=== PATIENT | male | born 1935 | race Caucasian/White ===

== ENCOUNTER 2024-08-22 13:52 | Inpatient (IN) | payer OTHER, SELFPAY ==
[2024-08-22] VITALS (16 sets, daily range): BP systolic 85–139; BP diastolic 47–92; PULSE 2–132; BMI 26.8
--- NOTE | 2024-08-22 10:32 | ED.GENMED ---
History of Present Illness
General
Chief Complaint: Breathing Problem
Source: patient and ambulance crew
Exam Limitations: none
Time Seen by Provider: 08/22/24 10:30
Nursing documentation reviewed up to this point in time: agreed with
History of Present Illness
History of Present Illness:
88 yo male presents emergency room complaining of shortness of breath. He began having trouble breathing on Thursday. He has a history of COPD, and did a home test positive for COVID on Thursday.
Past History
Past History
ED Past Medical History: COPD and NIDDM
ED Past Surgical History: None
Social History
Tobacco: Former smoker
Alcohol: None
Drug: None
Living: with family
Review of Systems
Review of Systems
Allergies reviewed?: Yes
All Other Systems: Not applicable
Constitutional: Reports fever
EENT: Reports no symptoms
Respiratory: Reports cough and trouble breathing
Cardiac: Reports no symptoms
ABD/GI: Reports no symptoms
: Reports no symptoms
Musculoskeletal: Reports no symptoms
Skin: Reports no symptoms
Neurological: Reports no symptoms
Endocrine: Reports no symptoms
Hematologic/Lymphatic: Reports no symptoms
Psychiatric: Reports no symptoms
Phy Exam
Physical Exam
Physical Exam:
Physical Exam
General: Afebrile, moderate respiratory distress, BiPAP in place
Neck: supple. no meningeal signs. normal posterior pharynx
Heart: s1/s2 tachycardia, no murmur. equal radial
pulses.
HEENT: Pupils equal round reactive to light, EOMI
Lungs: Moderate respiratory distress. Wheezing bilaterally
Abdomen: normal bowel sounds. not tender. no CVAT
Neuro: alert and oriented. no focal neurological deficits cranial nerves II through XII intact
Skin: no rash
Psychiatric: well kept. interactive and cooperative
Extremities: no edema. no calf tenderness. negative homans. good distal pulses
Scores
Heart Failure Risk
Heart Failure Risk Score: Not Applicable
Sepsis
Sepsis Screening
Sepsis Assessment: Sepsis
Sepsis Screen
Sepsis Screen: Sepsis
Date: 08/22/24
Time: 12:47
Course
Orders/Labs/Results
Orders:
Orders
08/22/24 10:26
Electrocardiogram (*1) Urgent
Reason for Study: Other
Other Reason for Exam: Respiratory Distress
Cardiac Monitoring- Treatment ONCE
EKG- Treatment ONCE
IV Insert/Care/Rem.- Treatment PRN
CR Chest Portable - 1 View Urgent
Comment:
Reason For Exam: respiratory distress
Reason Study Needs to be Portable: Patient Unstable
O2 Therapy [RESP] Urgent
Titrate/Wean O2 to maintain O2 sat greater than (%): 93
Special Instructions: TO MAINTAIN CONTINUOUS O2 SATS >/= 93%
Pulse Ox/cont/shift [RESP] Urgent
Quantity: 1
Special Instructions: continuous pulse ox
08/22/24 10:31
Complete Blood Count/With Diff Urgent
Ipratropium/Albuterol Sulfate [Duoneb] 3 ml INH R NOW STA
Bipap [RESP] Urgent
Patient to use own unit?: No
Inspiratory Pressure (cm H2O): 16
Expiratory Pressure (cm H2O): 8
08/22/24 10:36
Acetaminophen [Tylenol/Feverall] 650 mg .ROUTE .[facility]-MED ONE
Acetaminophen [Tylenol/Feverall] 650 mg RECTAL NOW STA
08/22/24 10:37
Acetaminophen [Tylenol/Feverall] 650 mg RECTAL NOW STA
08/22/24 11:28
Dexamethasone Sod Phosphate [Decadron] 10 mg IV NOW STA
Ipratropium/Albuterol Sulfate [Duoneb] 3 ml INH R NOW STA
08/22/24 11:37
Comprehensive Metabolic Panel Urgent
Lactic Acid Q4H
Comment: CANCEL 2nd LACTIC ACID IF 1st LACTIC ACID IS LESS THAN 2
Troponin I Urgent
Blood Culture Q30M
MONY Source: Blood/Venous
Specimen Description:
08/22/24 11:40
Blood Culture Q30M
MONY Source: Blood/Venous
Specimen Description:
Cefepime HCl [Maxipime] 2,000 mg IV NOW STA
08/22/24 11:45
Vancomycin [Vancocin] 2,000 mg 0.9% Sodium Chloride 500 ml [Nss] 500 ml IV NOW
08/22/24 11:55
Sterile Water [Sterile Water For Injection] [facility]
08/22/24 12:04
COVID-19 Antigen Urgent
Source: Nasal Swab
INF RAPID [Influenza A+B Rapid Molecular] Urgent
MONY Source: Nasal Swab
Specimen Description:
Abnormal Lab Results
08/22/24 08/22/24 08/22/24
10:31 11:37 12:04
WBC 21.0 H 10^3/uL
(4.8-10.8)
MCHC 30.0 L g/dL
(33.0-37.0)
Abs Immat Gran (auto) 0.1 H 10^3/uL
(0-0.05)
Absolute Neuts (auto) 18.7 H 10^3/uL
(1.4-6.5)
Absolute Lymphs (auto) 0.6 L 10^3/uL
(1.2-3.4)
Absolute Monos (auto) 1.5 H 10^3/uL
(0.1-0.6)
Immature Gran % 0.7 H %
(0-0.5)
Neutrophils % 89.0 H %
(42.2-75.2)
Lymphocytes % 2.9 L %
(20.5-51.1)
Chloride 91 L mmol/L
(98-107)
Carbon Dioxide 39 H mmol/L
(22-30)
BUN 28 H mg/dl
(9-20)
Glucose 162 H mg/dl
(70-99)
AST 15 L U/L
(17-59)
Troponin I 0.143 H* ng/ml
SARS-CoV-2 Antigen Positive A
(Negative)
08/22/24 10:31
08/22/24 11:37
Vital Signs
Initial and Last Documented VS:
Initial Vital Signs
Pulse Resp Pulse Ox
135 42 88
08/22/24 10:26 08/22/24 10:26 08/22/24 10:26
Last Documented Vital Signs
Temp Pulse Resp BP Pulse Ox
102.1 F H 122 37 102/67 88
08/22/24 10:36 08/22/24 12:15 08/22/24 12:15 08/22/24 12:00 08/22/24 12:15
MDM/Problems Addressed
Differential Diagnosis Includes:
CHF, pneumonia, COVID
MDM/Problems Addressed:
88-year-old male with pneumonia, COVID mild elevation, COPD. Mild improvement with BiPAP. IV cefepime and vancomycin given. Admit to hospitalist.
Chronic conditions affecting care: COPD
Acute Exacerbation and/or Progression of Chronic Illness: COPD
*Radiology
Radiology exam reviewed: radiology read reviewed (Chest x-ray shows right upper lobe pneumonia)
*Pulse Oximetry
Patient hypoxic: yes
*EKG
Interpreted by ED Provider?: Yes
EKG Intrepretation Date: 08/22/24
EKG Intrepretation Time: 10:45
Interpretation: abnormal
Comparison EKG: changes noted
Heart Rate: 134
Rate: tachycardiac
Rhythm: sinus tachycardia
[place]: normal axis
Interval: normal interval
QRS Pattern: right bundle branch block
Ischemia: no ischemia
*Wire Weaver Helper Interpretation
Rate: tachycardiac
Interpretation: abnormal
Heart Rate: 125
Rhythm: sinus tachycardia
*Critical Care Note
Total Time (30-74mins, 75-104mins- exclusive of procedures): 30
comment:
Critical care statement: A total of 30 minutes of critical care time was provided for this patient. This includes management of unstable vital signs, evaluation of the patient at bedside, reviewing the patient's pertinent medical records, discussion
with consultants, review of old EKGs and review of pertinent medical records. This time with separate from time utilized to perform the aforementioned documented procedures
Data Reviewed
Review of Other/Old Records Reveals: Labs
Source: records (BUN 42 on 11/29/2016)
Further Testing Considered But Not Given:
CT chest not indicated
Patient Management
Social determinants of health affecting care: Living situation and Strong social support
Discussion with other providers: Hospitalist
Escalation/DeEscalation of care consider admission/obs:
Admit indicated
ED Attending Note
-
Portions of this chart may have been created with voice recognition software.� Occasional wrong word or��sound alike� substitutions may have occurred due to the inherent limitations of voice recognition software.
Discharge Plan
Departure
Patient Disposition: Admit
Date of Disposition: 08/22/24
Time of Disposition: 12:41
Admit to: IMU
Presentation/result/management discussed w/ accepting MD/DO: Hospitalist
Patient with high blood pressure during this ER visit?: No
Condition: Fair
Covid-19: Confirmed COVID-19
Discharge Problem:
Acute respiratory failure with hypoxia and hypercarbia, COVID-19, Pneumonia, Elevated troponin
Prescriptions:
No Action
metformin 500 mg Tablet
500 mg PO BID
aspirin 81 mg Tablet,Delayed Release (Dr/Ec)
81 mg PO DAILY
albuterol sulfate [ProAir HFA] 90 mcg/actuation Hfa Aerosol Inhaler
2 puff INHALATION R Q6HPRN PRN (Reason: sob)
Asmanex HFA 200 mcg/actuation Hfa Aerosol Inhaler
1 puff INHALATION R BID
Stiolto Respimat 2.5-2.5 mcg/actuation Mist
2 puff INHALATION R DAILY
docusate sodium 100 MG capsule
100 mg PO DAILY
DayQuil Sinus Pressure/Pain 30-200 mg Tablet
1 tab PO BIDPRN PRN (Reason: cough/headache)
albuterol sulfate 2.5 mg /3 mL (0.083 %) Solution For Nebulization
2.5 mg INHALATION R Q4HPRN PRN (Reason: sob)
cholecalciferol (vitamin D3) [Vitamin D3] 25 mcg (1,000 unit) Tablet
25 mcg PO DAILY
Referrals:
NONE,* [Family Provider] -
Interventions
Interventions:
*Risk Screen - Suicide Last Done: 08/22/24 10:26
*General Assessment Last Done: 08/22/24 10:26
*Neglect/Abuse Screening Last Done: 08/22/24 10:26
ED- Fall Risk Assessment Last Done: 08/22/24 10:32
*ED COVID-19 Vaccine History Last Done: 08/22/24 10:32
ED- Cardiac Assessment Last Done: 08/22/24 10:32
ED- Pulmonary Assessment Last Done: 08/22/24 10:45
Discharge Date and Time
Print Language: BENGALI
[2024-08-22] MEDS: DUONEB 3 ML INH ×2 (10:37→12:02)
[2024-08-22] MEDS: TYLENOL/FEVERALL 650 MG RECTAL (10:37)
[2024-08-22 10:45] LABS: % Basophils 0.2 % (0-2); % Immature Granulocytes 0.7 % (0-0.5); % Lymphocytes 2.9 % (20.5-51.1); % Monocytes 7.2 % (1.7-9.3); Absolute Basophils 0.1 10^3/uL (0-0.2); Absolute Immature Granulocytes 0.1 10^3/uL (0-0.05); Absolute Lymphocytes 0.6 10^3/uL (1.2-3.4); Absolute Monocytes 1.5 10^3/uL (0.1-0.6); Absolute Neutrophils 18.7 10^3/uL (1.4-6.5); Hemoglobin 14.4 g/dL (13.0-18.0); Mean Corpuscular Hgb 28.1 pg (27.0-31.0); Mean Corpuscular Volume 93.6 fL (80.0-94.0); Nucleated Red Blood Cells % 0 % (-); Platelet Count 239 10^3/uL (130-400); Red Blood Cell Count 5.13 10^6/uL (4.70-6.10); Red Cell Dist. Width 13.5 % (11.5-14.5)
[2024-08-22] MEDS: DECADRON 10 MG IV (11:32)
[2024-08-22] MEDS: VANCOCIN 540 MG IV (12:02)
[2024-08-22] MEDS: MAXIPIME 2000 MG IV (12:02)
[2024-08-22 12:16] LABS: ALT (SGPT) 15 U/L (0-50); AST (SGOT) 15 U/L (17-59); Albumin 3.9 g/dl (3.5-5.0); Alkaline Phosphatase 69 U/L (38-126); Blood Urea Nitrogen 28 mg/dl (9-20); Calcium 8.9 mg/dl (8.4-10.2); Carbon Dioxide 39 mmol/L (22-30); Chloride 91 mmol/L (98-107); Estimated Creatinine Clearance 50 ml/min; Glucose 162 mg/dl (70-99); Lactic Acid 1.5 mmol/L (0.7-2.0); Potassium 4.6 mmol/L (3.5-5.1); Sodium 140 mmol/L (135-145); Total Bilirubin 0.9 mg/dl (0.2-1.3); Total Protein 6.7 g/dl (6.3-8.2); eGFR > 60.00
[2024-08-22 12:29] LABS: Troponin I 0.143 ng/ml
[2024-08-22 12:39] LABS: COVID-19 Antigen Positive (Negative)
--- NOTE | 2024-08-22 12:43 | HPS.HSE ---
Family Physician
-
Family Physician: * NONE
Chief Complaint
-
Shortness of Breath
History of Present Illness
Patient is an 88 y/o male past medical history of diabetes mellitus, and COPD/Emphysema who presents with cough and shortness of breath. Patient reports he started with symptoms on Thursday at which time he has a home COVID test that was positive.
Breathing worsened over the weekend. EMS was called today due to his shortness of breath, where they found him to be cyanotic with pulse ox 70% on RA. Upon arrival to the ED he as placed on BiPAP. He was also found to be febrile with temp 102F.
He reports cough is very productive. He denies chest pain.
Medical History
Past Medical History
Past Medical History: Reports Other
Additional Past Medical History:
Diabetes Mellitus, Type II
COPD/Emphysema
Past Surgical History: Reports None
Social History
Tobacco: Former Smoker
Family History
Family History: Not pertinent
Allergies / Home Medications
Allergies reflects when Allergies were last updated in [employer]
Home Medications with original date entered in [employer]
Allergy/Medication List:
Allergies
Allergy/AdvReac Type Severity Reaction Status Date / Time
No Known Allergies Allergy Verified 08/22/24 12:25
Home Medications
albuterol sulfate 2.5 mg/3 mL (0.083 %) solution for nebulization 2.5 mg inhalation R Q4HPRN PRN sob 08/22/24
albuterol sulfate 90 mcg/actuation aerosol inhaler 2 puff inhalation R Q6HPRN PRN sob 08/22/24
aspirin 81 mg tablet,delayed release 81 mg PO DAILY 08/22/24
cholecalciferol (vitamin D3) 25 mcg (1,000 unit) tablet (Vitamin D3) 25 mcg PO DAILY 08/22/24
docusate sodium 100 mg capsule 100 mg PO DAILY 08/22/24
metformin 500 mg tablet 500 mg PO BID 08/22/24
mometasone 200 mcg/actuation HFA aerosol inhaler (Asmanex HFA) 1 puff inhalation R BID 08/22/24
pseudoephedrine-ibuprofen 30 mg-200 mg tablet 1 tab PO BIDPRN PRN cough/headache 08/22/24
tiotropium 2.5 mcg-olodaterol 2.5 mcg/actuation mist for inhalation (Stiolto Respimat) 2 puff inhalation R DAILY 08/22/24
Review of Systems
-
Unable to obtain full review of systems at this time due to: Acuity
Physical Exam
Vital Signs
Vital Signs
Temp Pulse Resp BP Pulse Ox
102.1 F H 122 37 102/67 88
08/22/24 10:36 08/22/24 12:15 08/22/24 12:15 08/22/24 12:00 08/22/24 12:15
Physical Exam
General: Well Developed, Well Nourished and Conversant
HEENT: Anicteric, Moist mucous membranes and Oxygen (BiPAP)
Respiratory: Rhonchi (Diffuse); No Accessory Resp Muscle Use
Cardiac: S1/S2 and Regular Rhythm
GI: Soft and Non Tender
Rectal: Deferred by Provider
Musculoskeletal: No Clubbing, No Cyanosis and No Edema
Skin: Warm and Dry
Neuro: Awake, Alert, Oriented and Nonfocal/grossly intact
Psych: Calm
Laboratory Results
-
08/22/24 10:31
08/22/24 11:37
Laboratory Results
Lactic Acid Cancelled 08/22/24 14:45
Total Bilirubin 0.9 mg/dl (0.2-1.3) 08/22/24 11:37
AST 15 U/L (17-59) L 08/22/24 11:37
ALT 15 U/L (0-50) 08/22/24 11:37
Alkaline Phosphatase 69 U/L (38-126) 08/22/24 11:37
Troponin I 0.143 ng/ml H* 08/22/24 11:37
Data Reviewed
-
Diagnostic Radiology: Report Reviewed by me
Lab Data: Labs Reviewed by me
Impression/Plan
-
Sepsis and Acute Hypoxic Respiratory Failure secondary to Severe COVID Pneumonia
-Admit to IMU
-Consult Pulmonary
-Attempt to transition BiPAP to mid/high flow oxygen
-Start Decadron 6mg IV Daily
-Start Remdesivir
-Continue empiric antibiotics with ceftriaxone and doxycycline in setting of high fever, leukocytosis and significant sputum production
-Attempt to obtain sputum culture
-Await blood cultures
-Continue supportive care with Mucinex and Tylenol
-Encourage use of incentive spirometer and acapella device
Elevated Troponin, likely non-ischemic myocardial injury secondary to severe hypoxia
-Continue to trend troponin
COPD/Emphysema
-Continue albuterol HFA, Spiriva and Flovent in setting of COVID
Diabetes Mellitus, Type II
-Hold metformin
-Monitor sugars and continue coverage insulin
DVT proph: Lovenox
Code Status: DNR
--- NOTE | 2024-08-22 13:16 | W.PN.UPDATE ---
Addendum entered and electronically signed by Tye Robles MD 08/22/24 14:19:
Patent not on home oxygen.
Original Note:
Update Note
Progress Note Update
This is an addendum to the H&P written by Sarah Levin on 08/22/2024. Patient seen and examined independently with PA.
88-year-old male past medical history of COPD on 3 L baseline, diabetes, presenting with shortness of breath for the past 4 days. He tested positive for COVID 3 days ago.
Patient with temperature of 102, tachycardic with a heart rate of 122, respiratory rate of 37.
On examination with moderate respiratory distress, bilateral wheezing.
Patient placed on BiPAP.
Labs show leukocytosis. Troponin of 0.143.
Chest x-ray shows severe asymmetric opacity in the right upper lobe, moderate right lower lobe and mild left lower lobe opacities secondary to severe pneumonia.
Nonischemic myocardial injury secondary to hypoxemia.
Patient with clinically septic severe COVID-pneumonia. Start dexamethasone and remdesivir. Will try to switch BiPAP to mid flow oxygen. Blood cultures pending. IV fluids. Empiric antibiotics with ceftriaxone/doxycycline. Pulmonology consulted.
Trend troponins.
[2024-08-22] MEDS: NSS 1000 IV ×2 (14:23→18:20)
--- NOTE | 2024-08-22 14:40 | CON.PUL ---
Consultation
Consultation Request
Date/Time Consultation Requested: 08/22/2024 - 1353
Date/Time Consultation Performed: 08/22/2024 - 1420
Requesting Provider: Sarah Gardner PA-C
Performing Provider: Dr. Cunningham
Reason for Consultation: Hypoxia; COVID-19
Medical History
-
Chief Complaint: SOB
History of Present Illness:
88-year-old male with a past medical history of COPD, restrictive lung disease, chronic rhinitis, former tobacco use, DM2 and history of chronic hypoxic respiratory failure requiring 3 L/min with activity who presents with shortness of breath.
Patient tested positive at home for COVID-19 on this past Thursday (08/19/2024) and was short of breath so called 911. Found to be saturating 70% on room air and placed onto CPAP by EMS and also given a DuoNeb treatment and then brought here to the
ER. Patient also was reportedly cyanotic according to EMS. Upon arrival to the ER he was placed onto BiPAP. In the ER he was febrile to 102.1 �F, pulse rate 135, breathing 42 breaths minute, BP 139/83 and saturating 80% on CPAP. After patient
transitioned to BiPAP his saturations improved to 90%. Patient eventually transitioned to high flow nasal cannula. Initial labs showed leukocytosis of 21, Hb 14.4, serum bicarbonate level 39, troponin 0.143, and COVID antigen was positive. Flu
A/B swab was negative and blood cultures were collected. CXR showed opacification in the right upper lobe, right lower lobe and left lower lobe. He was given cefepime in the ER, vancomycin, Decadron 10 mg, and DuoNebs. Patient being admitted to
the IMU and pulmonary service now consulted for additional management/recommendations.
When I saw the patient he was in bed, on high flow nasal cannula at 60% FiO2, 60 L/min. He was lethargic but easily arousable and answer my questions appropriately. He says that he is currently in the hospital due to shortness of breath. He
denies cough. He says that he is not normally short of breath. Also says that he does not usually wear O2 at home. Not sure how he got COVID-19, denies recent sick contacts. Denies chest pain, MIN, abdominal pain, nausea, vomiting, or chills.
Of note, patient previously followed with us in the [facility] office with Dr. Friedman, last visit on 06/13/2019. At that time he was on 3 L/min with activity and was on Symbicort 160+ Spiriva for history of COPD with emphysema. He also had a history of
restrictive lung disease. He is a former tobacco smoker with [id number] history, quit November 2016. 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 He was told to follow-up in 3 months but this never
happened. Spirometry from 05/09/2019 showed severe COPD with post-bronchodilator FEV1: 0.72 L / 30% predicted with a negative bronchodilator response. Also a moderate restrictive lung defect with post-bronchodilator FVC: 1.74 L / 50% predicted. He
did have mild improvement in the small lung gregorio with FEF 25-25% improvement from 17% predicted to 20% predicted with bronchodilation.
PMHx: Chronic rhinitis, restrictive lung disease, former tobacco use, history of chronic hypoxic respiratory failure on 3 L/min with activity, COPD/emphysema, DM type II
PSHx: Hernia surgery, tonsillectomy and adenoidectomy
Past Medical History
Past Medical History: Other (Above as per HPI)
Past Surgical History: Other (Above as per HPI)
Social History
Tobacco: Former Smoker ([id number] history, quit November 2016)
Alcohol: None
Drug: None
Family History
Family History: Cancer (Mother (unknown type)) and Other (Father: Emphysema)
Allergies / Home Medications
Allergies
Allergy/AdvReac Type Severity Reaction Status Date / Time
No Known Allergies Allergy Verified 08/22/24 12:25
Home Medications
�Medication �Instructions �Recorded �Confirmed �Last Taken �Type
albuterol sulfate 2.5 mg/3 mL 2.5 mg inhalation R Q4HPRN PRN sob 08/22/24 08/22/24 08/21/24 History
(0.083 %) solution for nebulization
albuterol sulfate 90 mcg/actuation 2 puff inhalation R Q6HPRN PRN sob 08/22/24 08/22/24 Unknown History
aerosol inhaler
aspirin 81 mg tablet,delayed 81 mg PO DAILY 08/22/24 08/22/24 Unknown History
release
cholecalciferol (vitamin D3) 25 25 mcg PO DAILY 08/22/24 08/22/24 Unknown History
mcg (1,000 unit) tablet (Vitamin
D3)
docusate sodium 100 mg capsule 100 mg PO DAILY 08/22/24 08/22/24 Unknown History
metformin 500 mg tablet 500 mg PO BID 08/22/24 08/22/24 Unknown History
mometasone 200 mcg/actuation HFA 1 puff inhalation R BID 08/22/24 08/22/24 Unknown History
aerosol inhaler (Asmanex HFA)
pseudoephedrine-ibuprofen 30 1 tab PO BIDPRN PRN cough/headache 08/22/24 08/22/24 08/21/24 History
mg-200 mg tablet
tiotropium 2.5 mcg-olodaterol 2.5 2 puff inhalation R DAILY 08/22/24 08/22/24 Unknown History
mcg/actuation mist for inhalation
(Stiolto Respimat)
Review of Systems
-
History Source: Patient
All other systems: Negative unless noted
Vitals / Labs / Diagnostic Testing
Vital Signs
Temp Pulse Resp BP Pulse Ox
102.1 F H 108 33 122/92 95
08/22/24 10:36 08/22/24 17:00 08/22/24 17:00 08/22/24 17:00 08/22/24 17:00
Lab Data
08/22/24 10:31
08/22/24 11:37
Microbiology
08/22/24 12:04 Nasal Swab Influenza Types A & B (JT) - Final
Negative for Influenza A & B, NAAT
Negative results must be combined with clinical observations
and patient history.
Nucleic Acid Amplification test (NAAT)performed on the
[employer] platform.
Diagnostic Testing:
Physical Exam
-
HEENT: Normocephalic and Anicteric
Cardiovascular: S1/S2 and Peripheral Edema (negative)
Respiratory: Wheeze (Predominantly in the left hemithorax), Rales (Predominantly in the left hemithorax), Rhonchi (negative) and Other (Diminished breath sounds in the right hemithorax)
GI: Soft, Non Distended, Non Tender and Normal Bowel Sounds
Neurology: Tremors (negative) and Other (Lethargic but easily arousable to voice and answering my questions appropriately)
Skin: Warm and Dry
General: Respiratory Distress (negative), Chills (negative) and Sweats (negative)
Assessment
-
Assessment: 88-year-old male with a past medical history of COPD, restrictive lung disease, chronic rhinitis, former tobacco use, DM2 and history of chronic hypoxic respiratory failure requiring 3 L/min with activity who presents with shortness of
breath. Patient tested positive at home for COVID-19 on this past Thursday (08/19/2024) and was short of breath so called 911. Found to be saturating 70% on room air and placed onto CPAP by EMS and also given a DuoNeb treatment and then brought here
to the ER. Patient also was reportedly cyanotic according to EMS. Upon arrival to the ER he was placed onto BiPAP. In the ER he was febrile to 102.1 �F, pulse rate 135, breathing 42 breaths minute, BP 139/83 and saturating 80% on CPAP. After
patient transitioned to BiPAP his saturations improved to 90%. Patient eventually transitioned to high flow nasal cannula. Initial labs showed leukocytosis of 21, Hb 14.4, serum bicarbonate level 39, troponin 0.143, and COVID antigen was positive.
Flu A/B swab was negative and blood cultures were collected. CXR showed opacification in the right upper lobe, right lower lobe and left lower lobe. He was given cefepime in the ER, vancomycin, Decadron 10 mg, and DuoNebs. Patient being admitted
to the IMU and pulmonary service now consulted for additional management/recommendations.
Chronic conditions DRILLER PORTABLE: Chronic rhinitis, restrictive lung disease, former tobacco use, history of chronic hypoxic respiratory failure on 3 L/min with activity, COPD/emphysema, DM type II
Impression:
#Acute respiratory failure with hypoxia due to COVID-19 pneumonia with multifocal GGO seen on initial CXR
#Leukocytosis
#Metabolic alkalosis due to chronic hypercapnic respiratory failure
#Elevated troponin likely due to demand ischemia with type II RI
#History of moderate to lung disease
#History of severe COPD/emphysema
#DM type II
Plan:
- Continue with high flow nasal cannula and titrate FiO2 + flow rate to keep saturations 88-94%
- Aspiration precautions
- Continue with bronchodilators with Spiriva + albuterol MDI 2 puffs QID
- Continue ICS with Flovent 110mg 2 puffs BID, rinsing mouth afterwards
- prn bronchodilators for breakthrough symptoms
- Continue systemic steroids with decadron 6mg IV dialy; maintain euglycemia while on steroids with goal BG >100 and <180
- Remdesivir
- Mucinex
- Given the multifocal groundglass opacification with leukocytosis, continue with empiric antibiotics (rocephin + doxy)
- Check procalcitonin for trending power
- Follow up blood Cx X2 (collected 08/22/2024)
- trend WBC and monitor fever curve
- Collect a sputum culture if patient can provide a decent
- He has a history of chronic hypercapnic respiratory failure with prior baseline pCO2 around 65 --> re-check venous blood gas to assess pH and pCO2
- Trend troponin until begins to downtrend
- Incentive spirometer once he is less lethargic
- Replete electrolytes with K>4, Mg>2
- DVT ppx: LMWH
Pulmonary service will continue to follow along. Pulmonary office follow-up will be arranged after discharge as last visit was on 06/13/[address] Friedman.
Data:
CXR 08/22/2024:
1. Severe asymmetric opacity in the right upper lobe. Moderate right lower lobe and mild left lower lobe opacities. Diagnostic possibilities are (1) SEVERE PNEUMONIA (most likely given the asymmetric distribution) or (2) much less likely alveolar
pulmonary edema.
2. Mild to moderate scarring in the lower lobes.
3. Mild bilateral lung hyperinflation.
Total time spent today was 77 minutes for this encounter. Time includes reviewing laboratory test/imaging results, reviewing pertinent medical records, obtaining and reviewing medical history, performing an appropriate exam, ordering medications,
tests and procedures. Time also includes documentation of this encounter, coordinating patient care and communicating with other healthcare professionals. Total time does not include separately billed tests performed on this date of service.
[2024-08-22] MEDS: ROCEPHIN 1000 MG IV (18:19)
[2024-08-22] MEDS: STERILE WATER FOR INJECTION 10 ML IV (18:19)
[2024-08-22] MEDS: VEKLURY 250 MG IV (18:28)
[2024-08-22 19:02] LABS: Troponin I 0.632 ng/ml
--- NOTE | 2024-08-22 20:25 | PTCARENOTE ---
Received patient in room 3350 with COMMERCIAL [employer]. Patient on HFNC 60L/ 60% Fi02. Sp02 95%. Denies SOB or chest pain. Oriented to room and use of call middleton. NSR/ST w/ PVCs & PACs on tele. Denies any pain. 2 RN skin check done; refer to worklist. Admission
questions started.
[2024-08-22] MEDS: ProAIR HFA INHALER INH (20:48)
[2024-08-22] MEDS: FLOVENT 110 MCG INHALER 2 PUFF INH (20:50)
[2024-08-22] MEDS: ProAIR HFA INHALER 2 PUFF INH (20:50)
[2024-08-22] MEDS: VIBRAMYCIN 100 MG PO (21:39)
[2024-08-22] MEDS: LOVENOX 40 MG SC (21:39)
[2024-08-22] MEDS: MUCINEX 600 MG PO (21:39)
[2024-08-22] MEDS: NOVOLOG FLEXPEN-LOW RESISTANCE SC (21:48)
[2024-08-22 22:00] LABS: Glucose - Point of Care 165 mg/dl (70-99)
[2024-08-23] VITALS (10 sets, daily range): BP systolic 90–148; BP diastolic 53–90; BMI 24.6
[2024-08-23] MEDS: NSS 1000 IV (03:38)
--- NOTE | 2024-08-23 06:11 | PTCARENOTE ---
Addendum entered by Nabli Short RN 08/23/24 06:35:
Critical C02 71 reported to CAROLINA Scott. Pt remains on HFNJ at this time. Sp02 97.
Original Note:
AM labwork drawn and sent to lab. Lab did not receive via tube station and is now missing. Re-drawing AM labs now.
[2024-08-23 06:29] LABS: Venous Blood Gas B.E. 4.7 mmol/L (-4 to +4); Venous Blood Gas HCO3 33.4 mmol/L (22-27); Venous Blood Gas O2 Sat % 98.7 %; Venous Blood Gas pH 7.28 (7.32-7.43); Venous Blood Gas pO2 94 mmHg (30-50)
[2024-08-23 06:30] LABS: Venous Blood Gas pCO2 71 mmHg (35-48)
[2024-08-23 06:37] LABS: Hematocrit 37.4 % (39.0-52.0); Hemoglobin 11.5 g/dL (13.0-18.0); Mean Corp Hgb Conc. 30.7 g/dL (33.0-37.0); Mean Corpuscular Hgb 28.5 pg (27.0-31.0); Mean Corpuscular Volume 92.8 fL (80.0-94.0); Platelet Count 172 10^3/uL (130-400); Red Blood Cell Count 4.03 10^6/uL (4.70-6.10); Red Cell Dist. Width 13.7 % (11.5-14.5); White Blood Cell Count 12.4 10^3/uL (4.8-10.8)
[2024-08-23 07:21] LABS: ALT (SGPT) 13 U/L (0-50); AST (SGOT) 17 U/L (17-59); Albumin 2.7 g/dl (3.5-5.0); Alkaline Phosphatase 49 U/L (38-126); Blood Urea Nitrogen 44 mg/dl (9-20); Calcium 8.3 mg/dl (8.4-10.2); Carbon Dioxide 33 mmol/L (22-30); Chloride 99 mmol/L (98-107); Estimated Creatinine Clearance 50 ml/min; Glucose 154 mg/dl (70-99); Magnesium 1.8 mg/dl (1.6-2.3); Potassium 4.3 mmol/L (3.5-5.1); Sodium 140 mmol/L (135-145); Total Bilirubin 0.3 mg/dl (0.2-1.3); Total Protein 5.1 g/dl (6.3-8.2); eGFR > 60.00
[2024-08-23] MEDS: ASPIR LOW (ENTERIC COATED) 81 MG PO (08:47)
[2024-08-23] MEDS: NOVOLOG FLEXPEN-LOW RESISTANCE SC (08:47)
[2024-08-23] MEDS: SPIRIVA RESPIMAT 2.5 MCG 2 PUFF INH (08:47)
[2024-08-23] MEDS: MUCINEX 600 MG PO ×2 (08:47→19:52)
[2024-08-23] MEDS: ProAIR HFA INHALER 2 PUFF INH ×2 (08:47→12:16)
[2024-08-23] MEDS: VIBRAMYCIN 100 MG PO ×2 (08:47→19:52)
[2024-08-23] MEDS: FLOVENT 110 MCG INHALER 2 PUFF INH (08:47)
[2024-08-23] MEDS: DECADRON 6 MG IV (08:47)
[2024-08-23 08:50] LABS: Troponin I 0.365 ng/ml
[2024-08-23 08:57] LABS: Glucose - Point of Care 125 mg/dl (70-99)
--- NOTE | 2024-08-23 09:18 | W.PN.PUL3 ---
Today's Communication / Plan
-
Check CTA chest to rule out acute PE
Start empiric heparin but if CTA chest negative for acute PE then change back to prophylactic chemical dosing
Continue with Decadron + remdesivir
Continue with broad-spectrum antibiotics
DuoNebs and add budesonide
Start BiPAP with sleep and prn during the day
Trend blood gas tomorrow to ensure pH + pCO2 remained stable
Mucolytics
Aspiration precautions
Keep SpO2 88-95%
Will need PT/OT once hypoxia improves
Pulmonary service will continue to follow along
Assessment
-
Assessment: 88-year-old male with a past medical history of COPD, restrictive lung disease, chronic rhinitis, former tobacco use, DM2 and history of chronic hypoxic respiratory failure requiring 3 L/min with activity who presents with shortness of
breath. Patient tested positive at home for COVID-19 on this past Thursday (08/19/2024) and was short of breath so called 911. Found to be saturating 70% on room air and placed onto CPAP by EMS and also given a DuoNeb treatment and then brought here
to the ER. Patient also was reportedly cyanotic according to EMS. Upon arrival to the ER he was placed onto BiPAP. In the ER he was febrile to 102.1 �F, pulse rate 135, breathing 42 breaths minute, BP 139/83 and saturating 80% on CPAP. After
patient transitioned to BiPAP his saturations improved to 90%. Patient eventually transitioned to high flow nasal cannula. Initial labs showed leukocytosis of 21, Hb 14.4, serum bicarbonate level 39, troponin 0.143, and COVID antigen was positive.
Flu A/B swab was negative and blood cultures were collected. CXR showed opacification in the right upper lobe, right lower lobe and left lower lobe. He was given cefepime in the ER, vancomycin, Decadron 10 mg, and DuoNebs. Patient being admitted
to the IMU and pulmonary service now consulted for additional management/recommendations.
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
Impression:
#Acute respiratory failure with hypoxia due to COVID-19 pneumonia with multifocal GGO seen on initial CXR
#Leukocytosis
#Metabolic alkalosis due to chronic hypercapnic respiratory failure
#Elevated troponin likely due to demand ischemia with type II KS - peaked at 0.632 on 08/22/2024
#Dilated RV with redosed systolic function � unclear etiology, however given no regional WMA seen this is unlikely due to ACS, need to consider an acute PE although PASP is WNL at 27 mmHg
#History of moderate to lung disease
#History of severe COPD/emphysema
#DM type II
#Former tobacco smoker
Plan:
- Continue with high flow nasal cannula and titrate FiO2 + flow rate to keep saturations 88-94%
- He has a wet sounding cough although this is not bothersome to him
- Aspiration precautions
- Spiriva + albuterol MDI 2 puffs QID changed to DuoNebs QID
- Start budesonide
- prn bronchodilators for breakthrough symptoms
- Continue systemic steroids with decadron 6mg IV dialy; maintain euglycemia while on steroids with goal BG >100 and <180
- Remdesivir x 5 days
- Mucinex; may need vest therapy if he has difficulty brining up his phlegm
- Given the multifocal groundglass opacification with leukocytosis, continue with empiric antibiotics (rocephin + doxy)
- Procalcitonin elevated at 1.22 --> continue to monitor for trending power
- Follow up blood Cx X2 (collected 08/22/2024)
- trend WBC and monitor fever curve
- Follow up sputum culture (collected today)
- He has a history of chronic hypercapnic respiratory failure with prior baseline pCO2 around 65 --> ABG this morning shows acute on chronic hypercapnia with pH 7.28, pCO2 71
- Start BiPAP with sleep and prn during the day 12/5cmH2O --> re-check blood gas tomorrow to assure pH and pCO2 are stable
- Troponin peaked at 0.632 on 08/22/2024 � no longer need to continue trending
- Transthoracic echo today shows dilated RV with reduced systolic function, and he has continued shortness of breath. CTA chest pending to rule out acute PE. Heparin drip started empirically. If CTA chest is negative for an acute PE then would
change back to prophylactic chemical dosing
- Incentive spirometer once he is less lethargic
- Replete electrolytes with K>4, Mg>2
- DVT ppx: heparin gtt being started given concern for acute PE as RV appears dilated with reduced systolic function seen on echo from today
Pulmonary service will continue to follow along. Pulmonary office follow-up will be arranged after discharge as last visit was on 06/13/[address] Friedman.
Data:
CXR 08/22/2024:
1. Severe asymmetric opacity in the right upper lobe. Moderate right lower lobe and mild left lower lobe opacities. Diagnostic possibilities are (1) SEVERE PNEUMONIA (most likely given the asymmetric distribution) or (2) much less likely alveolar
pulmonary edema.
2. Mild to moderate scarring in the lower lobes.
3. Mild bilateral lung hyperinflation.
TTE 08/23/2024:
Normal left ventricular size, wall thickness and systolic function.
Dilated right ventricle with reduced systolic function with preserved function
at the base.
No significant valvular disease.
Compared to previous echo 06/07/2019, the right ventricle was normal on the
prior study.
Total time spent today was 52 minutes for this encounter. Time includes reviewing laboratory test/imaging results, reviewing pertinent medical records, obtaining and reviewing medical history, performing an appropriate exam, ordering medications,
tests and procedures. Time also includes documentation of this encounter, coordinating patient care and communicating with other healthcare professionals. Total time does not include separately billed tests performed on this date of service.
Subjective Data
-
Date of Service:
Date of Service: August 23, 2024
Chief Complaint: Pulmonary Follow Up
Subjective:
Patient seen and evaluated today at bedside. Still short of breath with a wet cough, although says that his cough is not bothersome to him. Currently on high flow nasal cannula at FiO2 50%, and 60 L/min with SaO2: 94%, heart rate 105 and BP
129/73. He denies chest pain, MIN, nausea, fevers or chills.
Review of Systems
General: Other (Negative unless mentioned above)
Objective Data
Data Reviewed
Vital Signs / I&O / Oxygen:
Vital Signs
Temp Pulse Resp BP Pulse Ox
97.4 F 90 24 103/53 92
08/23/24 03:00 08/23/24 08:59 08/23/24 08:59 08/23/24 06:00 08/23/24 09:34
Intake and Output
08/22/24 08/23/24 08/24/24
06:59 06:59 06:59
Output Total 350 / 350 200 / 200
Balance -350 / -350 -200 / -200
SaO2 92
Nasal Cannula flow liters per 50
minute
Physical Exam
General: Respiratory Distress (negative), Comfortable, Chills (negative) and Sweats (negative)
HEENT: Normocephalic and Anicteric
Cardiovascular: S1-S2, Rub (negative), Peripheral Edema (negative) and Other (Tachycardic)
Respiratory: Wheeze (negative), Rhonchi (negative), Accessory Resp Muscle Use (negative), Stridor (negative) and Other (Diminished breath sounds bilaterally with coarse breath sounds and occasional inspiratory squeaks)
GI: Soft, Non Distended, Non Tender and Normal Bowel Sounds
Neurology: AO x 3 and Tremors (negative)
Skin: Warm, Dry, Cyanosis (negative) and Jaundice (negative)
Labs/Micro/Reports
Lab Data
08/23/24 06:15
08/23/24 06:15
Microbiology
08/22/24 12:04 Nasal Swab Influenza Types A & B (JT) - Final
Negative for Influenza A & B, NAAT
Negative results must be combined with clinical observations
and patient history.
Nucleic Acid Amplification test (NAAT)performed on the
[employer] platform.
[2024-08-23 10:18] LABS: Glycohemoglobin (HgbA1c) 6.4 % (4.0-5.6)
[2024-08-23 10:22] LABS: Procalcitonin 1.22 ng/ml (0.0-0.25)
[2024-08-23] MEDS: VEKLURY 250 MG IV (11:48)
[2024-08-23 11:58] LABS: Glucose - Point of Care 180 mg/dl (70-99)
[2024-08-23] MEDS: NOVOLOG FLEXPEN-LOW RESISTANCE 1 UNITS SC ×2 (13:34→17:21)
--- NOTE | 2024-08-23 15:10 | W.PN.HOSP.TC ---
Today's Communication/Plan
-
cont abx
f/u cultures
inhalers
wean o2
NIV as needed
Assessment / Plan
Assessment / Plan
HEENT: Normocephalic and Anicteric
Cardiovascular: S1/S2 and Peripheral Edema (negative)
Respiratory: Wheeze (Predominantly in the left hemithorax), (Diminished breath sounds in the right hemithorax)
GI: Soft, Non Distended, Non Tender and Normal Bowel Sounds
Neurology: Tremors (negative)
Skin: Warm and Dry
General: Respiratory Distress (negative), Chills (negative) and Sweats (negative)
#Acute on chronic hypoxic and hypercapnic respiratory failure
Secondary to #SARS-CoV-2 along with #possible superimposed bacterial pneumonia
� Currently on high flow nasal cannula although with tachypnea, can place on BiPAP.
�Aspiration precautions
� Continue nebulizers
� Continue IV steroids
� Remdesivir
� NIV as needed, can place on NIV for assistance
� Continue empiric antibiotics
� Follow-up cultures
� Sputum cultures if expectorating
� Incentive spirometry
#Sepsis
� Secondary to pneumonia
� See plan above
Continue to monitor
� Follow-up cultures
#Elevate troponin
� Most likely nonischemic myocardial injury secondary to restaurant failure
� No chest pain
� Trend troponins until peak
#COPD exacerbation/see plan above
#Diabetes, type II
� Hold metformin
� Sliding scale
� Hemoglobin A1c 6.4
#DVT prophylaxis
� Lovenox
Anticipated Discharge: > 48 hours
Subjective/Interval History
-
Date of Service: August 23, 2024
still tachypneic although improved
Objective Data
-
Labs:
Laboratory Results
08/23/24 08/23/24
03:48 06:15
WBC Cancelled 12.4 H
Hgb Cancelled 11.5 L D
Hct Cancelled 37.4 L
Plt Count Cancelled 172 D
Sodium Cancelled 140
Potassium Cancelled 4.3
Chloride Cancelled 99
Carbon Dioxide Cancelled 33 H
BUN Cancelled 44 H
Creatinine Cancelled 1.0
Glucose Cancelled 154 H
Calcium Cancelled 8.3 L
Total Bilirubin 0.3
AST 17
ALT 13
Alkaline Phosphatase 49
Vital Signs:
Vital Signs
Temp Pulse Resp BP Pulse Ox
98.2 F 97 10 113/79 91
08/23/24 11:20 08/23/24 13:00 08/23/24 13:00 08/23/24 12:00 08/23/24 13:00
I&O
08/22/24 08/23/24 08/24/24
06:59 06:59 06:59
Output Total 350 / 350 200 / 200
Balance -350 / -350 -200 / -200
Review of Systems
-
History Source: Patient
All other systems: Not reviewed unless documented
Data Reviewed
-
Diagnostic Radiology: Report Reviewed by me
Labs: Labs Reviewed by me
--- NOTE | 2024-08-23 15:32 | CM ---
CM following re: discharge planning.
Reviewed pt's chart, spoke to pt's daughter over the phone.
Pt is an 88 year old male, admitted with primary dx of COVID 19.
Pt lives with daughter 2SH, 1 step to enter, has 2 supportive children. pt's daughter described the pt as independent in all areas [employer] [employer], has home O2 and requires 3L NC at baseline. No VN or SNF history.
PCP: [facility] and [place]
Pharmacy: [facility] and [place]
D/c plan: home with anticipated needs. Daughter to transport at discharge.
CM will follow with discharge plan updates as hospitalization progresses
[2024-08-23] MEDS: DUONEB 3 ML INH ×2 (15:36→19:17)
--- NOTE | 2024-08-23 16:00 | PTCARENOTE ---
Pt continues to be tachypneic w/ expiratory wheezing. Hospitalist wanted to try pt on BiPAP again but pt became anxious and would not tolerate. Placed back on high flow at 60L and 50% FiO2
[2024-08-23 16:41] LABS: Glucose - Point of Care 170 mg/dl (70-99)
[2024-08-23] MEDS: ROCEPHIN 1000 MG IV (17:20)
[2024-08-23] MEDS: STERILE WATER FOR INJECTION 10 ML IV (17:21)
[2024-08-23 18:25] LABS: Hematocrit 39.2 % (39.0-52.0); Hemoglobin 12.3 g/dL (13.0-18.0); Mean Corp Hgb Conc. 31.4 g/dL (33.0-37.0); Mean Corpuscular Hgb 28.6 pg (27.0-31.0); Mean Corpuscular Volume 91.2 fL (80.0-94.0); Mean Platelet Volume 9.9 fL (7.4-10.4); Platelet Count 200 10^3/uL (130-400); Red Cell Dist. Width 13.6 % (11.5-14.5); White Blood Cell Count 14.2 10^3/uL (4.8-10.8)
[2024-08-23 18:36] LABS: APTT 34.8 Sec (23.4-35.0)
[2024-08-23] MEDS: PULMICORT 0.5 MG INH (19:17)
[2024-08-23] MEDS: MORPHINE SULFATE 1 MG IV (19:52)
[2024-08-23] MEDS: LOVENOX 40 MG SC (23:31)
[2024-08-23 23:59] LABS: Glucose - Point of Care 152 mg/dl (70-99)
[2024-08-24] VITALS (12 sets, daily range): BP systolic 117–144; BP diastolic 64–88; BMI 25.0
--- NOTE | 2024-08-24 03:55 | PTCARENOTE ---
Patient arrived back from CT scan approx 1900 yesterday evening. SOB and increased work of breathing noted. Respirations 30-40s, Sp02 94-95%. RT at bedside for breathing tx and placed HFNC 60L/60%. pt was unable to tolerate Bipap earlier in the day.
CAROLINA Wells made aware and ordered one time dose of 1mg morphine IV. Patient's respirations able to decrease and WOB decrease.
CT negative for PE, so order for heparin gtt was discontinued. Heparin gtt not started.
Patient has been awake most of the night, unable to sleep. Denies any pain. NSR/ST w/ BBB & frequent PACs. HFNC 60L/60%, Sp02 94-99%. COVID precautions in place. Repositioned with air cushion, heels floated. Call middleton and tray table within reach. Pt
calls appropriately for assistance.
[2024-08-24 05:25] LABS: Hematocrit 39.5 % (39.0-52.0); Hemoglobin 12.4 g/dL (13.0-18.0); Mean Corp Hgb Conc. 31.4 g/dL (33.0-37.0); Mean Corpuscular Hgb 28.5 pg (27.0-31.0); Mean Corpuscular Volume 90.8 fL (80.0-94.0); Mean Platelet Volume 10.2 fL (7.4-10.4); Platelet Count 222 10^3/uL (130-400); Red Blood Cell Count 4.35 10^6/uL (4.70-6.10); Red Cell Dist. Width 13.6 % (11.5-14.5); Venous Blood Gas B.E. 8.9 mmol/L (-4 to +4); Venous Blood Gas HCO3 36.4 mmol/L (22-27); Venous Blood Gas O2 Sat % 99.1 %; Venous Blood Gas pCO2 63 mmHg (35-48); Venous Blood Gas pH 7.37 (7.32-7.43); Venous Blood Gas pO2 108 mmHg (30-50)
[2024-08-24 05:49] LABS: Blood Urea Nitrogen 44 mg/dl (9-20); Calcium 8.6 mg/dl (8.4-10.2); Carbon Dioxide 36 mmol/L (22-30); Chloride 98 mmol/L (98-107); Estimated Creatinine Clearance 63 ml/min; Glucose 136 mg/dl (70-99); Potassium 4.4 mmol/L (3.5-5.1); Sodium 140 mmol/L (135-145); eGFR > 60.00
[2024-08-24] MEDS: PULMICORT 0.5 MG INH ×2 (07:59→19:13)
[2024-08-24] MEDS: DUONEB 3 ML INH ×3 (07:59→16:07)
[2024-08-24 08:28] LABS: Glucose - Point of Care 114 mg/dl (70-99)
[2024-08-24] MEDS: NOVOLOG FLEXPEN-LOW RESISTANCE SC (08:32)
[2024-08-24] MEDS: DECADRON 6 MG IV (09:04)
[2024-08-24] MEDS: ASPIR LOW (ENTERIC COATED) 81 MG PO (09:04)
[2024-08-24] MEDS: MUCINEX 600 MG PO (09:04)
[2024-08-24] MEDS: VIBRAMYCIN 100 MG PO ×2 (09:04→22:36)
--- NOTE | 2024-08-24 09:20 | W.PN.PUL3 ---
Today's Communication / Plan
-
CTA chest shows a right upper lobe mass concerning for malignancy � will need biopsy once he clinically improves with better O2 requirements
Continue with Decadron + remdesivir
Continue with broad-spectrum antibiotics
DuoNebs and budesonide
Recommend to start BiPAP with sleep and prn during the day
Trend blood gas to ensure pH + pCO2 remained stable
Mucolytics
Add 3% hypertonic saline with vest therapy given his wet sounding cough with poor expectoration and continued shortness of breath, worsened today
Aspiration precautions
Keep SpO2 88-95%
Will need PT/OT once hypoxia improves
Pulmonary service will continue to follow along
Poor prognosis
Assessment
-
Assessment: 88-year-old male with a past medical history of COPD, restrictive lung disease, chronic rhinitis, former tobacco use, DM2 and history of chronic hypoxic respiratory failure requiring 3 L/min with activity who presents with shortness of
breath. Patient tested positive at home for COVID-19 on this past Thursday (08/19/2024) and was short of breath so called 911. Found to be saturating 70% on room air and placed onto CPAP by EMS and also given a DuoNeb treatment and then brought here
to the ER. Patient also was reportedly cyanotic according to EMS. Upon arrival to the ER he was placed onto BiPAP. In the ER he was febrile to 102.1 �F, pulse rate 135, breathing 42 breaths minute, BP 139/83 and saturating 80% on CPAP. After
patient transitioned to BiPAP his saturations improved to 90%. Patient eventually transitioned to high flow nasal cannula. Initial labs showed leukocytosis of 21, Hb 14.4, serum bicarbonate level 39, troponin 0.143, and COVID antigen was positive.
Flu A/B swab was negative and blood cultures were collected. CXR showed opacification in the right upper lobe, right lower lobe and left lower lobe. He was given cefepime in the ER, vancomycin, Decadron 10 mg, and DuoNebs. Patient being admitted
to the IMU and pulmonary service now consulted for additional management/recommendations.
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
Impression:
#Acute respiratory failure with hypoxia due to COVID-19 pneumonia with multifocal GGO seen on initial CXR
#Acute respiratory failure with hypercapnia � now improved
#Leukocytosis
#Metabolic alkalosis due to chronic hypercapnic respiratory failure
#Elevated troponin likely due to demand ischemia with type II DC - peaked at 0.632 on 08/22/2024
#Dilated RV with redosed systolic function � unclear etiology, however given no regional WMA seen this is unlikely due to ACS, need to consider an acute PE although PASP is WNL at 27 mmHg
#History of moderate to lung disease
#History of severe COPD/emphysema
#DM type II
#Former tobacco smoker
Plan:
- Continue with high flow nasal cannula and titrate FiO2 + flow rate to keep saturations 88-94%
- He has a wet sounding cough with difficulty getting out his phlegm
- Aspiration precautions
- Spiriva + albuterol MDI 2 puffs QID changed to DuoNebs QID
- Continue budesonide
- prn bronchodilators for breakthrough symptoms
- Continue systemic steroids with decadron 6mg IV dialy; maintain euglycemia while on steroids with goal BG >100 and <180
- Remdesivir x 5 days
- Mucinex; will start hypertonic 3% and vest therapy given his worsening SOB today with difficulty brining up his phlegm
- Given the multifocal groundglass opacification with leukocytosis, continue with empiric antibiotics (rocephin + doxy)
- Procalcitonin elevated at 1.22 --> continue to monitor for trending power
- Follow up blood Cx X2 (collected 08/22/2024)
- trend WBC and monitor fever curve
- Follow up sputum culture (collected on 08/23/2024)
- He has a history of chronic hypercapnic respiratory failure with prior baseline pCO2 around 65 --> ABG yesterday morning shows acute on chronic hypercapnia with pH 7.28, pCO2 71
- Recommend to start BiPAP with sleep and prn during the day 12/5cmH2O --> re-checked blood gas this AM (08/24/2024) and it shows improvement in pH and pCO2 - continue to trend
- Troponin peaked at 0.632 on 08/22/2024 � no longer need to continue trending
- Transthoracic echo on 08/23/2024 showed dilated RV with reduced systolic function, and he has continued shortness of breath. CTA chest negative for acute PE. Heparin drip started empirically on 08/23, and this can be stopped.
-His CTA chest from 08/23/2024 showed a right apical 2.3 cm nodule with a right upper lobe anterior mass, suspicious for malignancy. Also has a right lower lobe pleural effusion. Would recommend tissue biopsy once he clinically improves with a
bronchoscopy. For now, check right sided chest ultrasound to see if enough pleural fluid present for thoracentesis
- Incentive spirometer once he is less lethargic
- Replete electrolytes with K>4, Mg>2
- DVT ppx: heparin gtt being started given concern for acute PE as RV appears dilated with reduced systolic function seen on echo from today
Pulmonary service will continue to follow along. Pulmonary office follow-up will be arranged after discharge as last visit was on 06/13/[address] Friedman.
Data:
CTA Chest 08/23/2024:
No findings to suggest central pulmonary embolism.
Large irregular mass in the right upper lobe extending to the right hilum, likely smaller mass in the right apex, both must be deemed suspicious for malignancy.
Right lower lobe consolidation, cannot exclude central mass such as malignancy with postobstructive atelectasis.
Some lingular opacity most likely representing subsegmental atelectasis. Small central lesion unlikely but cannot be entirely excluded.
Right hilar and mediastinal lymphadenopathy
When able to be obtained due to, PET scan may be helpful for more complete evaluation.
CXR 08/22/2024:
1. Severe asymmetric opacity in the right upper lobe. Moderate right lower lobe and mild left lower lobe opacities. Diagnostic possibilities are (1) SEVERE PNEUMONIA (most likely given the asymmetric distribution) or (2) much less likely alveolar
pulmonary edema.
2. Mild to moderate scarring in the lower lobes.
3. Mild bilateral lung hyperinflation.
TTE 08/23/2024:
Normal left ventricular size, wall thickness and systolic function.
Dilated right ventricle with reduced systolic function with preserved function
at the base.
No significant valvular disease.
Compared to previous echo 06/07/2019, the right ventricle was normal on the
prior study.
Total time spent today was 54 minutes for this encounter. Time includes reviewing laboratory test/imaging results, reviewing pertinent medical records, obtaining and reviewing medical history, performing an appropriate exam, ordering medications,
tests and procedures. Time also includes documentation of this encounter, coordinating patient care and communicating with other healthcare professionals. Total time does not include separately billed tests performed on this date of service.
Subjective Data
-
Date of Service:
Date of Service: August 24, 2024
Chief Complaint: Pulmonary Follow Up
Subjective:
Patient seen and evaluated today at bedside. Currently on high flow nasal cannula at 60% FiO2, 60 L minute. Short of breath with exertion and not eating as much due to loss of taste. Currently saturating 94% with heart rate 108 and BP 141/68. He
still has a wet cough with trouble getting out his phlegm. He has some confusion as well and according to the nurse, he is hallucinating. He currently denies chest pain, MIN, nausea, fevers or chills.
Review of Systems
General: Other (Negative unless mentioned above)
Objective Data
Data Reviewed
Vital Signs / I&O / Oxygen:
Vital Signs
Temp Pulse Resp BP Pulse Ox
97.6 F 111 20 130/69 92
08/24/24 07:15 08/24/24 11:29 08/24/24 11:29 08/24/24 06:00 08/24/24 11:34
Intake and Output
08/23/24 08/24/24 08/25/24
06:59 06:59 06:59
Intake Total 480 / 480
Output Total 350 / 350 1200 / 1200 200 / 200
Balance -350 / -350 -720 / -720 -200 / -200
SaO2 92
Nasal Cannula flow liters per 55
minute
Physical Exam
General: Respiratory Distress (negative), Comfortable, Chills (negative) and Sweats (negative)
HEENT: Normocephalic and Anicteric
Cardiovascular: S1-S2, Rub (negative), Peripheral Edema (negative) and Other (Tachycardic)
Respiratory: Wheeze (Occasionally heard in the left upper lobe upon expiration), Crackles (Bilateral), Rhonchi (negative), Accessory Resp Muscle Use (negative), Stridor (negative) and Other (Diminished breath sounds bilaterally with coarse breath
sounds and occasional inspiratory squeaks)
GI: Soft, Non Distended, Non Tender and Normal Bowel Sounds
Neurology: Awake, Alert and Tremors (negative)
Skin: Warm, Dry, Cyanosis (negative) and Jaundice (negative)
Labs/Micro/Reports
Lab Data
08/24/24 05:02
08/24/24 05:02
Laboratory Results
08/23/24
18:14
APTT 34.8
Microbiology
08/22/24 11:37 Blood/Venous Blood Culture - Preliminary
No Growth in 24 hours- Final report to follow
08/22/24 11:40 Blood/Venous Blood Culture - Preliminary
No Growth in 24 hours- Final report to follow
08/23/24 10:00 Sputum Respiratory Culture - Final
08/23/24 10:00 Sputum Gram Stain - Final
08/22/24 12:04 Nasal Swab Influenza Types A & B (JT) - Final
Negative for Influenza A & B, NAAT
Negative results must be combined with clinical observations
and patient history.
Nucleic Acid Amplification test (NAAT)performed on the
[employer] platform.
[2024-08-24] MEDS: SENOKOT-S 1 TABLET PO ×2 (12:58→22:37)
[2024-08-24] MEDS: NOVOLOG FLEXPEN-LOW RESISTANCE 1 UNITS SC (12:58)
[2024-08-24] MEDS: VEKLURY 250 MG IV (12:58)
[2024-08-24 13:09] LABS: Glucose - Point of Care 182 mg/dl (70-99)
--- NOTE | 2024-08-24 14:25 | W.PN.HOSP.TC ---
Today's Communication/Plan
-
cont abx
f/u cultures
inhalers
wean o2
NIV as needed
Assessment / Plan
Assessment / Plan
HEENT: Normocephalic and Anicteric
Cardiovascular: S1/S2 and Peripheral Edema (negative)
Respiratory: Wheeze (Predominantly in the left hemithorax), (Diminished breath sounds in the right hemithorax)
GI: Soft, Non Distended, Non Tender and Normal Bowel Sounds
Neurology: Tremors (negative)
Skin: Warm and Dry
General: Respiratory Distress (negative), Chills (negative) and Sweats (negative)
#Acute on chronic hypoxic and hypercapnic respiratory failure
Secondary to #SARS-CoV-2 along with #possible superimposed bacterial pneumonia
� Currently on high flow nasal cannula although with tachypnea, can place on BiPAP.
�Aspiration precautions
� Continue nebulizers
� Continue IV steroids
� Remdesivir
� NIV as needed, can place on NIV for assistance
� Continue empiric antibiotics
� Follow-up cultures
� Sputum cultures if expectorating
� Incentive spirometry
#Sepsis
� Secondary to pneumonia
� See plan above
Continue to monitor
� Follow-up cultures
#Mass in the right upper lobe, mass in the right apex
# Right lower lobe consolidation, possible central mass
� Unfortunately high risk for bronchoscopy at this time
� May need follow-up once acute event resolves
#Elevate troponin
� Most likely nonischemic myocardial injury secondary to restaurant failure
� No chest pain
� Trend troponins until peak
� Echo with normal EF, dilated RV�I suspect secondary to chronic respiratory issues; PE negative
#COPD exacerbation/see plan above
#Diabetes, type II
� Hold metformin
� Sliding scale
� Hemoglobin A1c 6.4
#DVT prophylaxis
� Lovenox
Anticipated Discharge: > 48 hours
Subjective/Interval History
-
Date of Service: August 24, 2024
No acute events overnight
Objective Data
-
Labs:
Laboratory Results
08/24/24
05:02
WBC 14.0 H
Hgb 12.4 L
Hct 39.5
Plt Count 222
Sodium 140
Potassium 4.4
Chloride 98
Carbon Dioxide 36 H
BUN 44 H
Creatinine 0.8
Glucose 136 H
Calcium 8.6
Vital Signs:
Vital Signs
Temp Pulse Resp BP Pulse Ox
97.6 F 113 35 144/82 94
08/24/24 07:15 08/24/24 13:00 08/24/24 13:00 08/24/24 12:00 08/24/24 13:00
I&O
08/23/24 08/24/24 08/25/24
06:59 06:59 06:59
Intake Total 480 / 480
Output Total 350 / 350 1200 / 1200 200 / 200
Balance -350 / -350 -720 / -720 -200 / -200
Review of Systems
-
History Source: Patient
All other systems: Not reviewed unless documented
Data Reviewed
-
Diagnostic Radiology: Report Reviewed by me
Labs: Labs Reviewed by me
--- NOTE | 2024-08-24 14:49 | PTCARENOTE ---
Patient unable to tolerate activity in bed at this time, severe orthopnea and dyspnea. Notified Dr. Cunningham. Patient stating that when he 'closes his eyes his is seeing scary visions of animals'. Patient also stated that he saw a boy in his room
but he knows these are hallucinations. Patient is oriented to place, time, person and diagnosis. Notified Dr. Jurado and hospitalist of the hallucinations, patient is on steroids. poor appetite due to lack of taste. Oral intake encouraged.
[2024-08-24 16:29] LABS: Glucose - Point of Care 215 mg/dl (70-99)
[2024-08-24] MEDS: NOVOLOG FLEXPEN-LOW RESISTANCE 2 UNITS SC (17:21)
[2024-08-24] MEDS: ROCEPHIN 1000 MG IV (17:23)
[2024-08-24] MEDS: MIRALAX 17 GRAMS PO (17:23)
[2024-08-24] MEDS: STERILE WATER FOR INJECTION 10 ML IV (17:24)
[2024-08-24] MEDS: SODIUM CHLORIDE 3% FOR INHALATION 1 VIAL INH (19:13)
[2024-08-24] MEDS: XOPENEX 0.63 MG INHALANT SOLUTION INH (19:13)
--- NOTE | 2024-08-24 19:39 | PTCARENOTE ---
Addendum entered by Nabil Short RN 08/24/24 23:23:
Pt reports his breathing is much better after the morphine. NRB off at this time. Able to swallow pills whole with water. Call middleton and tray table within reach.
Original Note:
Patient pressed call m[facility] and reports he is struggling to breathe. Similar episode happened yesterday evening at the same time. RT at bedside, breathing tx being given. Pt pulled up in bed and placed NRB on top of HFNC. Pt using abdominal and
accessory muscles. Emotional support given. Respirations 30-40s. Pt reports hallucinations and feeling like he still cannot breathe. Sp02 94-96% w/ NRB & HFNC 60L/60%. Lungs with coarse rhonchi, not much air movement. Sinus tach 110 with PACs. RETANNER
Sharee Wells made aware of patient status.
[2024-08-24] MEDS: MORPHINE SULFATE 1 MG IV (19:59)
[2024-08-24 21:59] LABS: Glucose - Point of Care 210 mg/dl (70-99)
[2024-08-24] MEDS: LOVENOX 40 MG SC (22:36)
[2024-08-24] MEDS: MELATONIN 5 MG PO (22:36)
[2024-08-24] MEDS: MUCINEX 1200 MG PO (22:36)
[2024-08-25] VITALS (12 sets, daily range): BP systolic 102–152; BP diastolic 71–98; PULSE 2–96; BMI 24.3
[2024-08-25 06:26] LABS: Venous Blood Gas B.E. 13.7 mmol/L (-4 to +4); Venous Blood Gas HCO3 40.9 mmol/L (22-27); Venous Blood Gas O2 Sat % 96.8 %; Venous Blood Gas pCO2 63 mmHg (35-48); Venous Blood Gas pH 7.42 (7.32-7.43); Venous Blood Gas pO2 75 mmHg (30-50)
[2024-08-25 06:34] LABS: Hematocrit 38.4 % (39.0-52.0); Hemoglobin 11.9 g/dL (13.0-18.0); Mean Corpuscular Hgb 28.4 pg (27.0-31.0); Mean Corpuscular Volume 91.6 fL (80.0-94.0); Mean Platelet Volume 9.9 fL (7.4-10.4); Platelet Count 215 10^3/uL (130-400); Red Blood Cell Count 4.19 10^6/uL (4.70-6.10); Red Cell Dist. Width 13.7 % (11.5-14.5)
[2024-08-25 07:07] LABS: ALT (SGPT) 14 U/L (0-50); AST (SGOT) 16 U/L (17-59); Albumin 2.8 g/dl (3.5-5.0); Alkaline Phosphatase 48 U/L (38-126); Blood Urea Nitrogen 37 mg/dl (9-20); Calcium 8.6 mg/dl (8.4-10.2); Carbon Dioxide 39 mmol/L (22-30); Chloride 98 mmol/L (98-107); Estimated Creatinine Clearance 63 ml/min; Glucose 126 mg/dl (70-99); Potassium 4.3 mmol/L (3.5-5.1); Sodium 141 mmol/L (135-145); Total Bilirubin 0.3 mg/dl (0.2-1.3); Total Protein 5.2 g/dl (6.3-8.2); eGFR > 60.00
[2024-08-25] MEDS: PULMICORT 0.5 MG INH ×2 (08:04→19:18)
[2024-08-25] MEDS: SODIUM CHLORIDE 3% FOR INHALATION 1 VIAL INH ×2 (08:04→19:18)
[2024-08-25] MEDS: XOPENEX 0.63 MG INHALANT SOLUTION INH ×2 (08:05→11:44)
[2024-08-25 08:31] LABS: Glucose - Point of Care 124 mg/dl (70-99)
--- NOTE | 2024-08-25 08:52 | W.PN.PUL3 ---
Today's Communication / Plan
-
CTA chest shows a right upper lobe mass concerning for malignancy � will need biopsy once he clinically improves with better O2 requirements
He is becoming more SOB --> check CXR, raise steroids to solumedrol 60mg IV q6hr and continue remdesivir
Continue with broad-spectrum antibiotics
DuoNebs and budesonide
Recommend to start BiPAP with sleep and prn during the day --> he is refusing BiPAP, and understands the risks of non-compliance including CO-2 narcosis, hypoxia and
Trend blood gas to ensure pH + pCO2 remained stable
Mucolytics
Continue 3% hypertonic saline with vest therapy given his wet sounding cough with poor expectoration and continued shortness of breath
Aspiration precautions
Keep SpO2 88-95%
Will need PT/OT once hypoxia improves
Pulmonary service will continue to follow along
Poor prognosis
Assessment
-
Assessment: 88-year-old male with a past medical history of COPD, restrictive lung disease, chronic rhinitis, former tobacco use, DM2 and history of chronic hypoxic respiratory failure requiring 3 L/min with activity who presents with shortness of
breath. Patient tested positive at home for COVID-19 on this past Thursday (08/19/2024) and was short of breath so called 911. Found to be saturating 70% on room air and placed onto CPAP by EMS and also given a DuoNeb treatment and then brought here
to the ER. Patient also was reportedly cyanotic according to EMS. Upon arrival to the ER he was placed onto BiPAP. In the ER he was febrile to 102.1 �F, pulse rate 135, breathing 42 breaths minute, BP 139/83 and saturating 80% on CPAP. After
patient transitioned to BiPAP his saturations improved to 90%. Patient eventually transitioned to high flow nasal cannula. Initial labs showed leukocytosis of 21, Hb 14.4, serum bicarbonate level 39, troponin 0.143, and COVID antigen was positive.
Flu A/B swab was negative and blood cultures were collected. CXR showed opacification in the right upper lobe, right lower lobe and left lower lobe. He was given cefepime in the ER, vancomycin, Decadron 10 mg, and DuoNebs. Patient being admitted
to the IMU and pulmonary service now consulted for additional management/recommendations.
Chronic conditions PET TECHNOLOGIST: Chronic rhinitis, restrictive lung disease, former tobacco use, history of chronic hypoxic respiratory failure on 3 L/min with activity, COPD/emphysema, DM type II
Impression:
#Acute respiratory failure with hypoxia due to COVID-19 pneumonia with multifocal GGO seen on initial CXR
#Acute respiratory failure with hypercapnia � now improved
#Leukocytosis
#Metabolic alkalosis due to chronic hypercapnic respiratory failure
#Elevated troponin likely due to demand ischemia with type II [place] - peaked at 0.632 on 08/22/2024
#Dilated RV with reduced systolic function � unclear etiology, however given no regional WMA seen this is unlikely due to ACS, need to consider an acute PE although PASP is WNL at 27 mmHg (ruled out via CTA chest on 08/23/2024)
#History of moderate to lung disease
#History of severe COPD/emphysema
#DM type II
#Former tobacco smoker
Plan:
- Continue with high flow nasal cannula and titrate FiO2 + flow rate to keep saturations 88-94%
- He has a wet sounding cough with difficulty getting out his phlegm
- Aspiration precautions
- Spiriva + albuterol MDI 2 puffs QID changed to DuoNebs QID
- Continue budesonide
- prn bronchodilators for breakthrough symptoms
- Continue systemic steroids but raise from decadron 6mg IV daily to solumedrol 60mg IV q6hr; maintain euglycemia while on steroids with goal BG >100 and <180
- Remdesivir x 5 days
- Mucinex; will continue hypertonic 3% and vest therapy given his worsening SOB since 08/24/2024 with difficulty brining up his phlegm
- Given the multifocal groundglass opacification with leukocytosis, continue with empiric antibiotics (rocephin + doxy)
- Procalcitonin elevated at 1.22 --> continue to monitor for trending power
- Follow up blood Cx X2 (collected 08/22/2024)
- trend WBC and monitor fever curve
- Follow up sputum culture (collected on 08/23/2024)
- He has a history of chronic hypercapnic respiratory failure with prior baseline pCO2 around 65 --> ABG yesterday morning shows acute on chronic hypercapnia with pH 7.28, pCO2 71
- Recommend to start BiPAP with sleep and prn during the day 12/5cmH2O --> pt refusing BiPAP and is not interested despite risk of worsening hypercapnia with CO2-narcosis. Re-checked blood gas on AM of 08/24/2024 and it shows improvement in pH and
pCO2 consistent with chronic, compensated hypercapnia- continue to trend
- Troponin peaked at 0.632 on 08/22/2024 � no longer need to continue trending
- Transthoracic echo on 08/23/2024 showed dilated RV with reduced systolic function, and he has continued shortness of breath. CTA chest negative for acute PE. Heparin drip started empirically on 08/23, and this can be stopped.
- His CTA chest from 08/23/2024 showed a right apical 2.3 cm nodule with a right upper lobe anterior mass, suspicious for malignancy. Also has a right lower lobe pleural effusion. Would recommend tissue biopsy once he clinically improves with a
bronchoscopy. Right sided chest ultrasound performed on 08/24/2024 and there is minimal right sided fluid, hence not safe for thoracentesis at this time
- Incentive spirometer once he is less lethargic
- Replete electrolytes with K>4, Mg>2
- DVT ppx: LMWH
GOC Discussion: Daughter, Courtney. was updated over the phone. She believes that she gave him covid-19. She says that he has been living for many years with COPD and is surprised that he has even made it this long in life. She understands that
he is critically ill, and agrees with making him comfortable but she does not want to transition to comfort care at this point unless he were to deteriorate further. I answered all her questions, and she verbalized understanding of the plan above
(explained to her in layman's terms).
Pulmonary service will continue to follow along. Pulmonary office follow-up will be arranged after discharge as last visit was on 06/13/[address] Friedman.
Data:
CTA Chest 08/23/2024:
No findings to suggest central pulmonary embolism.
Large irregular mass in the right upper lobe extending to the right hilum, likely smaller mass in the right apex, both must be deemed suspicious for malignancy.
Right lower lobe consolidation, cannot exclude central mass such as malignancy with postobstructive atelectasis.
Some lingular opacity most likely representing subsegmental atelectasis. Small central lesion unlikely but cannot be entirely excluded.
Right hilar and mediastinal lymphadenopathy
When able to be obtained due to, PET scan may be helpful for more complete evaluation.
CXR 08/22/2024:
1. Severe asymmetric opacity in the right upper lobe. Moderate right lower lobe and mild left lower lobe opacities. Diagnostic possibilities are (1) SEVERE PNEUMONIA (most likely given the asymmetric distribution) or (2) much less likely alveolar
pulmonary edema.
2. Mild to moderate scarring in the lower lobes.
3. Mild bilateral lung hyperinflation.
TTE 08/23/2024:
Normal left ventricular size, wall thickness and systolic function.
Dilated right ventricle with reduced systolic function with preserved function
at the base.
No significant valvular disease.
Compared to previous echo 06/07/2019, the right ventricle was normal on the
prior study.
Total time spent today was 56 minutes for this encounter. Time includes reviewing laboratory test/imaging results, reviewing pertinent medical records, obtaining and reviewing medical history, performing an appropriate exam, ordering medications,
tests and procedures. Time also includes documentation of this encounter, coordinating patient care and communicating with other healthcare professionals. Total time does not include separately billed tests performed on this date of service.
Subjective Data
-
Date of Service:
Date of Service: August 25, 2024
Chief Complaint: Pulmonary Follow Up
Subjective:
Pt seen this AM. Continues to be very SOB at rest. Currently on HFNC at 60% FiO2. Having difficulty getting out his phlegm. He says he cannot get a breath in. Having chest pain from coughing. Denies abd pain, N/V/f/c.
Review of Systems
General: Other (negative unless mentioned above)
Objective Data
Data Reviewed
Vital Signs / I&O / Oxygen:
Vital Signs
Temp Pulse Resp BP Pulse Ox
97.6 F 100 36 109/85 96
08/25/24 07:51 08/25/24 08:16 08/25/24 08:16 08/25/24 06:00 08/25/24 08:17
Intake and Output
08/24/24 08/25/24 08/26/24
06:59 06:59 06:59
Intake Total 480 / 480 608 / 608
Output Total 1200 / 1200 1350 / 1350
Balance -720 / -720 -742 / -742
SaO2 96
Nasal Cannula flow liters per 60
minute
Physical Exam
General: Respiratory Distress (positive), Comfortable, Chills (negative) and Sweats (negative)
HEENT: Normocephalic and Anicteric
Cardiovascular: S1-S2, Rub (negative), Peripheral Edema (negative) and Other (Tachycardic)
Respiratory: Wheeze (negative), Crackles (Bilateral), Rhonchi (negative), Accessory Resp Muscle Use (positive), Stridor (negative) and Other (Grossly diminished breath sounds b/l)
GI: Soft, Non Distended, Non Tender and Normal Bowel Sounds
Neurology: Awake, Alert and Tremors (negative)
Skin: Warm, Dry, Cyanosis (negative) and Jaundice (negative)
Labs/Micro/Reports
Lab Data
08/25/24 06:13
08/25/24 06:13
Microbiology
08/22/24 11:37 Blood/Venous Blood Culture - Preliminary
No Growth in 48 hours- Final report to follow
08/22/24 11:40 Blood/Venous Blood Culture - Preliminary
No Growth in 48 hours- Final report to follow
08/23/24 10:00 Sputum Respiratory Culture - Final
08/23/24 10:00 Sputum Gram Stain - Final
08/22/24 12:04 Nasal Swab Influenza Types A & B (JT) - Final
Negative for Influenza A & B, NAAT
Negative results must be combined with clinical observations
and patient history.
Nucleic Acid Amplification test (NAAT)performed on the
[employer] platform.
[2024-08-25] MEDS: NOVOLOG FLEXPEN-LOW RESISTANCE SC ×2 (09:57→12:34)
[2024-08-25] MEDS: SENOKOT-S 1 TABLET PO ×2 (09:58→21:11)
[2024-08-25] MEDS: MUCINEX 1200 MG PO ×2 (09:58→21:11)
[2024-08-25] MEDS: DECADRON 6 MG IV (09:59)
[2024-08-25] MEDS: VIBRAMYCIN 100 MG PO ×2 (09:59→21:11)
[2024-08-25] MEDS: ASPIR LOW (ENTERIC COATED) 81 MG PO (09:59)
[2024-08-25 11:24] LABS: Glucose - Point of Care 131 mg/dl (70-99)
[2024-08-25] MEDS: TYLENOL 650 MG PO (11:57)
[2024-08-25] MEDS: HALDOL 1 MG IV (11:57)
[2024-08-25] MEDS: VEKLURY 250 MG IV (11:58)
[2024-08-25] MEDS: MORPHINE SULFATE 4 MG IV (12:34)
--- NOTE | 2024-08-25 12:48 | PTCARENOTE ---
Increased SOB all morning- RR 30-39 currently on max high flow O2 60L 60%, sao2 95%. NRB mask at bedside for recovery PRN. Anxious when alone- calms somewhat when present in room. Can speak at times- coherent. Refusing PO intake- taking in some
fluids- encouraged. IV Haldol administered as ordered without effect. IV Morphine just given will monitor. IV Remdesivir infusing. Spoke with daughter Sneha this am.
--- NOTE | 2024-08-25 14:53 | W.PN.HOSP.TC ---
Today's Communication/Plan
-
cont abx
f/u cultures
inhalers, vesst therapy
wean o2
NIV - patient refusing - follow gases closely
Assessment / Plan
Assessment / Plan
HEENT: Normocephalic and Anicteric
Cardiovascular: S1/S2 and Peripheral Edema (negative)
Respiratory: Wheeze (Predominantly in the left hemithorax), (Diminished breath sounds in the right hemithorax)
GI: Soft, Non Distended, Non Tender and Normal Bowel Sounds
Neurology: Tremors (negative)
Skin: Warm and Dry
General: Respiratory Distress (negative), Chills (negative) and Sweats (negative)
#Acute on chronic hypoxic and hypercapnic respiratory failure
#Respiratory acidosis with compensated metabolic acidosis
Secondary to #SARS-CoV-2 along with #possible superimposed bacterial pneumonia
� Currently on high flow nasal cannula although with tachypnea, can place on BiPAP.
�Aspiration precautions
� Continue nebulizers
� Continue IV steroids
� Remdesivir
� NIV as needed, can place on NIV for assistance
� Continue empiric antibiotics
� Follow-up cultures
� Sputum cultures if expectorating
� Incentive spirometry
��Patient extensively educated on using BiPAP although is refusing. Understands risks of CO2 narcosis, .
� Will closely monitor gases
� Continue hypertonic saline, vest therapy
#Sepsis
� Secondary to pneumonia
� See plan above
Continue to monitor
� Follow-up cultures
#Mass in the right upper lobe, mass in the right apex
# Right lower lobe consolidation, possible central mass
� Unfortunately high risk for bronchoscopy at this time
� May need follow-up once acute event resolves
#Elevate troponin
� Most likely nonischemic myocardial injury secondary to restaurant failure
� No chest pain
� Trend troponins until peak
� Echo with normal EF, dilated RV�I suspect secondary to chronic respiratory issues; PE negative
#COPD exacerbation/see plan above
#Diabetes, type II
� Hold metformin
� Sliding scale
� Hemoglobin A1c 6.4
#DVT prophylaxis
� Lovenox
Total time spent on today's encounter was 51 minutes which included time spent in counseling the patient/family regarding diagnosis and treatment plan as listed above, goals of care, and symptom management. Case was discussed with nursing staff,
specialists, and care coordinators/case management. All labs and imaging personally reviewed by me. Remainder the time spent in detailed review of previous records, lab data, imaging, and other medical provider documentation.
Anticipated Discharge: Within 24 hours
Subjective/Interval History
-
Date of Service: August 25, 2024
Still tachypneic
Objective Data
-
Labs:
Laboratory Results
08/25/24
06:13
WBC 11.0 H
Hgb 11.9 L
Hct 38.4 L
Plt Count 215
Sodium 141
Potassium 4.3
Chloride 98
Carbon Dioxide 39 H
BUN 37 H
Creatinine 0.8
Glucose 126 H
Calcium 8.6
Total Bilirubin 0.3
AST 16 L
ALT 14
Alkaline Phosphatase 48
Vital Signs:
Vital Signs
Temp Pulse Resp BP Pulse Ox
98.2 F 104 30 152/89 95
08/25/24 11:27 08/25/24 12:23 08/25/24 12:23 08/25/24 12:23 08/25/24 12:23
I&O
08/24/24 08/25/24 08/26/24
06:59 06:59 06:59
Intake Total 480 / 480 608 / 608
Output Total 1200 / 1200 1350 / 1350
Balance -720 / -720 -742 / -742
Review of Systems
-
History Source: Patient
All other systems: Not reviewed unless documented
Data Reviewed
-
Diagnostic Radiology: Report Reviewed by me
Labs: Labs Reviewed by me
--- NOTE | 2024-08-25 15:38 | CM ---
Patient who is COVID +. High flow O2. Refusing BiPAP. Receiving IV & PO Abx, IV Steroids, IV Remdesivir, IV Haldol prn, IV MS. PT/OT; too SOB today to work with therapy.
Plan follow patient's respiratory status/respiratory needs for d/c.
Plan follow up after seen by PT/OT.
[2024-08-25] MEDS: DUONEB 3 ML INH ×2 (15:42→19:18)
[2024-08-25 17:50] LABS: Glucose - Point of Care 242 mg/dl (70-99)
[2024-08-25] MEDS: SOLU-MEDROL PF 40 MG IV (17:50)
[2024-08-25] MEDS: ROCEPHIN 1000 MG IV (17:50)
[2024-08-25] MEDS: STERILE WATER FOR INJECTION 10 ML IV (17:51)
[2024-08-25] MEDS: NOVOLOG FLEXPEN-LOW RESISTANCE 2 UNITS SC (17:57)
--- NOTE | 2024-08-25 18:48 | PTCARENOTE ---
Pt stated that Morphine made him feel so much better, continues to feel good. RR now 22-28, 95% on HFO2 60/60. D/w Dr. Fontana via TT- PRN order obtained.
[2024-08-25] MEDS: LOVENOX 40 MG SC (21:10)
[2024-08-25] MEDS: MELATONIN 5 MG PO (21:11)
[2024-08-25 21:38] LABS: Glucose - Point of Care 181 mg/dl (70-99)
[2024-08-26] VITALS (13 sets, daily range): BP systolic 111–139; BP diastolic 74–100; PULSE 95–96; O2SAT 94
[2024-08-26] MEDS: SOLU-MEDROL PF 40 MG IV ×4 (01:25→23:24)
--- NOTE | 2024-08-26 02:15 | PTCARENOTE ---
Addendum entered by Yaneth Harry RN 08/26/24 05:53:
Pt assessed for pain and for respiratory distress, Pt denies pain or distress at this time and is not presenting in any distress.
Original Note:
Pt AAOx3. Pt remains on high floe spo2 94-96%. Pt has no complaints at this time. Call m[facility]leton with in reach. Assessment care and vitals as charted.
[2024-08-26 05:27] LABS: Venous Blood Gas HCO3 39.7 mmol/L (22-27); Venous Blood Gas pH 7.35 (7.32-7.43); Venous Blood Gas pO2 68 mmHg (30-50)
[2024-08-26 05:28] LABS: Venous Blood Gas O2 Therapy 60%
[2024-08-26 05:29] LABS: Hematocrit 42.5 % (39.0-52.0); Hemoglobin 13.2 g/dL (13.0-18.0); Mean Corp Hgb Conc. 31.1 g/dL (33.0-37.0); Mean Corpuscular Hgb 28.1 pg (27.0-31.0); Mean Corpuscular Volume 90.6 fL (80.0-94.0); Mean Platelet Volume 10.3 fL (7.4-10.4); Platelet Count 235 10^3/uL (130-400); Red Blood Cell Count 4.69 10^6/uL (4.70-6.10); Red Cell Dist. Width 13.5 % (11.5-14.5); Venous Blood Gas pCO2 72 mmHg (35-48); White Blood Cell Count 10.4 10^3/uL (4.8-10.8)
--- NOTE | 2024-08-26 05:57 | PTCARENOTE ---
Pt Morning VBG reporting critical pCO2 at 72. Night [employer] made aware. Pt AAOx2-3 (time mixed up).
[2024-08-26 05:59] LABS: ALT (SGPT) 15 U/L (0-50); AST (SGOT) 15 U/L (17-59); Albumin 2.8 g/dl (3.5-5.0); Alkaline Phosphatase 52 U/L (38-126); Blood Urea Nitrogen 39 mg/dl (9-20); Calcium 8.5 mg/dl (8.4-10.2); Chloride 94 mmol/L (98-107); Estimated Creatinine Clearance 63 ml/min; Glucose 189 mg/dl (70-99); Magnesium 1.9 mg/dl (1.6-2.3); Phosphorus 3.9 mg/dl (2.5-4.5); Potassium 5.3 mmol/L (3.5-5.1); Sodium 139 mmol/L (135-145); Total Bilirubin 0.5 mg/dl (0.2-1.3); Total Protein 5.4 g/dl (6.3-8.2); eGFR > 60.00
[2024-08-26 06:19] LABS: Carbon Dioxide 35 mmol/L (22-30)
[2024-08-26] MEDS: ASPIR LOW (ENTERIC COATED) 81 MG PO (08:38)
[2024-08-26] MEDS: VIBRAMYCIN 100 MG PO ×2 (08:41→20:00)
[2024-08-26] MEDS: MORPHINE SULFATE 2 MG IV ×3 (08:41→21:26)
[2024-08-26] MEDS: SENOKOT-S 1 TABLET PO ×2 (08:41→20:00)
[2024-08-26] MEDS: MUCINEX 1200 MG PO ×2 (08:42→20:00)
[2024-08-26] MEDS: MIRALAX 17 GRAMS PO (08:42)
[2024-08-26] MEDS: PULMICORT 0.5 MG INH ×2 (08:44→19:15)
[2024-08-26] MEDS: SODIUM CHLORIDE 3% FOR INHALATION 1 VIAL INH ×2 (08:44→19:09)
[2024-08-26] MEDS: DUONEB 3 ML INH ×3 (08:45→19:09)
[2024-08-26 08:58] LABS: Glucose - Point of Care 185 mg/dl (70-99)
[2024-08-26] MEDS: NOVOLOG FLEXPEN-LOW RESISTANCE 1 UNITS SC (09:00)
--- NOTE | 2024-08-26 09:37 | W.PN.PUL3 ---
Today's Communication / Plan
-
Improved today, likely due to steroid raise yesterday
CTA chest shows a right upper lobe mass concerning for malignancy � will need biopsy once he clinically improves with better O2 requirements
Last day of remdesivir today
Continue with broad-spectrum antibiotics
DuoNebs and budesonide
Recommend to start BiPAP with sleep and prn during the day --> he is refusing BiPAP, and understands the risks of non-compliance including CO-2 narcosis, hypoxia and
Trend blood gas to ensure pH + pCO2 remained stable
Mucolytics
Continue 3% hypertonic saline with vest therapy given his wet sounding cough with poor expectoration and continued shortness of breath
Aspiration precautions
Keep SpO2 88-95%
Will need PT/OT once hypoxia improves
Pulmonary service will continue to follow along
Poor prognosis
Assessment
-
Assessment: 88-year-old male with a past medical history of COPD, restrictive lung disease, chronic rhinitis, former tobacco use, DM2 and history of chronic hypoxic respiratory failure requiring 3 L/min with activity who presents with shortness of
breath. Patient tested positive at home for COVID-19 on this past Thursday (08/19/2024) and was short of breath so called 911. Found to be saturating 70% on room air and placed onto CPAP by EMS and also given a DuoNeb treatment and then brought here
to the ER. Patient also was reportedly cyanotic according to EMS. Upon arrival to the ER he was placed onto BiPAP. In the ER he was febrile to 102.1 �F, pulse rate 135, breathing 42 breaths minute, BP 139/83 and saturating 80% on CPAP. After
patient transitioned to BiPAP his saturations improved to 90%. Patient eventually transitioned to high flow nasal cannula. Initial labs showed leukocytosis of 21, Hb 14.4, serum bicarbonate level 39, troponin 0.143, and COVID antigen was positive.
Flu A/B swab was negative and blood cultures were collected. CXR showed opacification in the right upper lobe, right lower lobe and left lower lobe. He was given cefepime in the ER, vancomycin, Decadron 10 mg, and DuoNebs. Patient being admitted
to the IMU and pulmonary service now consulted for additional management/recommendations.
Chronic conditions [employer]: Chronic rhinitis, restrictive lung disease, former tobacco use, history of chronic hypoxic respiratory failure on 3 L/min with activity, COPD/emphysema, DM type II
Impression:
#Acute respiratory failure with hypoxia due to COVID-19 pneumonia with multifocal GGO seen on initial CXR
#Acute respiratory failure with hypercapnia � relatively stable, albeit slightly worsened this AM
#Leukocytosis - resolved this AM
#Metabolic alkalosis due to chronic hypercapnic respiratory failure
#Elevated troponin likely due to demand ischemia with type II [place] - peaked at 0.632 on 08/22/2024
#Dilated RV with reduced systolic function � unclear etiology, however given no regional WMA seen this is unlikely due to ACS, need to consider an acute PE although PASP is WNL at 27 mmHg (ruled out via CTA chest on 08/23/2024)
#History of moderate to lung disease
#History of severe COPD/emphysema
#DM type II
#Former tobacco smoker
Plan:
- Continue with high flow nasal cannula and titrate FiO2 + flow rate to keep saturations 88-94%
- He has a wet sounding cough with difficulty getting out his phlegm
- Aspiration precautions
- Spiriva + albuterol MDI 2 puffs QID changed to DuoNebs QID
- Continue budesonide
- prn bronchodilators for breakthrough symptoms
- Continue systemic steroids but on 08/25/2024 I raised his decadron 6mg IV daily to solumedrol 40mg IV q8hr; maintain euglycemia while on steroids with goal BG >100 and <180
- Remdesivir x 5 days (last day today)
- Mucinex; will continue hypertonic 3% and vest therapy given his worsening SOB since 08/24/2024 with difficulty brining up his phlegm
- Given the multifocal groundglass opacification with leukocytosis, continue with empiric antibiotics (rocephin + doxy)
- Procalcitonin elevated at 1.22 --> continue to monitor for trending power
- Follow up blood Cx X2 (collected 08/22/2024)
- trend WBC and monitor fever curve
- Follow up sputum culture (collected on 08/23/2024)
- He has a history of chronic hypercapnic respiratory failure with prior baseline pCO2 around 65 --> ABG yesterday morning shows acute on chronic hypercapnia with pH 7.28, pCO2 71
- Recommend to start BiPAP with sleep and prn during the day 12/5cmH2O --> pt refusing BiPAP and is not interested despite risk of worsening hypercapnia with CO2-narcosis. Re-checked blood gas on AM of 08/24/2024 and it shows improvement in pH and
pCO2 consistent with chronic, compensated hypercapnia- continue to trend
- Troponin peaked at 0.632 on 08/22/2024 � no longer need to continue trending
- Transthoracic echo on 08/23/2024 showed dilated RV with reduced systolic function, and he has continued shortness of breath. CTA chest negative for acute PE. Heparin drip started empirically on 08/23, and this can be stopped.
- His CTA chest from 08/23/2024 showed a right apical 2.3 cm nodule with a right upper lobe anterior mass, suspicious for malignancy. Also has a right lower lobe pleural effusion. Would recommend tissue biopsy once he clinically improves with a
bronchoscopy. Right sided chest ultrasound performed on 08/24/2024 and there is minimal right sided fluid, hence not safe for thoracentesis at this time
- Incentive spirometer once he is less lethargic
- Replete electrolytes with K>4, Mg>2
- DVT ppx: LMWH
- Guarded prognosis
[facility] Discussion on 08/25/2024: Daughter, Courtney. was updated over the phone. She believes that she gave him covid-19. She says that he has been living for many years with COPD and is surprised that he has even made it this long in life. She
understands that he is critically ill, and agrees with making him comfortable but she does not want to transition to comfort care at this point unless he were to deteriorate further. I answered all her questions, and she verbalized understanding of
the plan above (explained to her in layman's terms).
Pulmonary service will continue to follow along. Pulmonary office follow-up will be arranged after discharge as last visit was on 06/13/[address] Friedman.
Data:
CTA Chest 08/23/2024:
No findings to suggest central pulmonary embolism.
Large irregular mass in the right upper lobe extending to the right hilum, likely smaller mass in the right apex, both must be deemed suspicious for malignancy.
Right lower lobe consolidation, cannot exclude central mass such as malignancy with postobstructive atelectasis.
Some lingular opacity most likely representing subsegmental atelectasis. Small central lesion unlikely but cannot be entirely excluded.
Right hilar and mediastinal lymphadenopathy
When able to be obtained due to, PET scan may be helpful for more complete evaluation.
CXR 08/22/2024:
1. Severe asymmetric opacity in the right upper lobe. Moderate right lower lobe and mild left lower lobe opacities. Diagnostic possibilities are (1) SEVERE PNEUMONIA (most likely given the asymmetric distribution) or (2) much less likely alveolar
pulmonary edema.
2. Mild to moderate scarring in the lower lobes.
3. Mild bilateral lung hyperinflation.
TTE 08/23/2024:
Normal left ventricular size, wall thickness and systolic function.
Dilated right ventricle with reduced systolic function with preserved function
at the base.
No significant valvular disease.
Compared to previous echo 06/07/2019, the right ventricle was normal on the
prior study.
Patient was seen and evaluated on 08/26/2024
Total time spent today was 53 minutes for this encounter. Time includes reviewing laboratory test/imaging results, reviewing pertinent medical records, obtaining and reviewing medical history, performing an appropriate exam, ordering medications,
tests and procedures. Time also includes documentation of this encounter, coordinating patient care and communicating with other healthcare professionals. Total time does not include separately billed tests performed on this date of service.
Subjective Data
-
Date of Service:
Date of Service: August 26, 2024
Chief Complaint: Pulmonary Follow Up
Subjective:
Pt seen this AM. The morphine helps him breathe greatly. He says that after the morphine wears off that he becomes very SOB again. He is currently on HFNC at 55L/min, 60% FiO2. He otherwise feels much better than yesterday. Denies chest pain,
abd pain, N/V/f/c.
Review of Systems
General: Other (negative unless mentioned above)
Objective Data
Data Reviewed
Vital Signs / I&O / Oxygen:
Vital Signs
Temp Pulse Resp BP Pulse Ox
97.6 F 93 28 111/80 94
08/26/24 03:26 08/26/24 09:23 08/26/24 09:23 08/26/24 04:00 08/26/24 09:24
Intake and Output
08/25/24 08/26/24 08/27/24
06:59 06:59 06:59
Intake Total 608 / 608 360 / 360
Output Total 1350 / 1350 750 / 750
Balance -742 / -742 -390 / -390
SaO2 94
Nasal Cannula flow liters per 60
minute
Physical Exam
General: Respiratory Distress (negative), Comfortable, Chills (negative) and Sweats (negative)
HEENT: Normocephalic and Anicteric
Cardiovascular: S1-S2, Rub (negative), Peripheral Edema (negative) and Other (Tachycardic)
Respiratory: Wheeze (negative), Crackles (Bilateral), Rhonchi (negative), Non-Labored Respirations, Accessory Resp Muscle Use (negative), Stridor (negative) and Other (Grossly diminished breath sounds b/l)
GI: Soft, Non Distended, Non Tender and Normal Bowel Sounds
Neurology: AO x 3 and Tremors (negative)
Skin: Warm, Dry, Cyanosis (negative) and Jaundice (negative)
Labs/Micro/Reports
Lab Data
08/26/24 04:57
08/26/24 04:57
Microbiology
08/26/24 04:57 Nose Nasal Screen MRSA (PCR) - Final
08/22/24 11:37 Blood/Venous Blood Culture - Preliminary
No Growth in 72 hours- Final report to follow
08/22/24 11:40 Blood/Venous Blood Culture - Preliminary
No Growth in 72 hours- Final report to follow
08/23/24 10:00 Sputum Respiratory Culture - Final
08/23/24 10:00 Sputum Gram Stain - Final
--- NOTE | 2024-08-26 11:37 | PTCARENOTE ---
RR noted on tele 30, BP 130/100, ST 90s- pt assessed, and PRN Morphine administered with am meds for dyspnea. Currently much more comfortable, dozing. BP 116/78 RR 24 and pox 94% on HFO2 60L /60%. RT present and meds given.
[2024-08-26 12:04] LABS: Glucose - Point of Care 270 mg/dl (70-99)
[2024-08-26] MEDS: NOVOLOG FLEXPEN-LOW RESISTANCE 3 UNITS SC (12:30)
[2024-08-26] MEDS: VEKLURY 250 MG IV (12:37)
[2024-08-26] MEDS: TYLENOL 650 MG PO (12:37)
[2024-08-26] MEDS: DUONEB INH (15:19)
--- NOTE | 2024-08-26 16:07 | W.PN.HOSP.TC ---
Today's Communication/Plan
-
Continue antibiotics
Completed remdesivir
Steroids, can most likely continue weaning by tomorrow
Wean O2 as tolerated
Early ambulation
Assessment / Plan
Assessment / Plan
HEENT: Normocephalic and Anicteric
Cardiovascular: S1/S2 and Peripheral Edema (negative)
Respiratory: Wheeze (Predominantly in the left hemithorax), (Diminished breath sounds in the right hemithorax)
GI: Soft, Non Distended, Non Tender and Normal Bowel Sounds
Neurology: Tremors (negative)
Skin: Warm and Dry
General: Respiratory Distress (negative), Chills (negative) and Sweats (negative)
#Acute on chronic hypoxic and hypercapnic respiratory failure
#Respiratory acidosis with compensated metabolic acidosis
Secondary to #SARS-CoV-2 along with #possible superimposed bacterial pneumonia
� Currently on high flow nasal cannula although with tachypnea, can place on BiPAP.
�Aspiration precautions
� Continue nebulizers
� Continue IV steroids
� Remdesivir
� NIV as needed, can place on NIV for assistance
� Continue empiric antibiotics
� Follow-up cultures
� Sputum cultures if expectorating
� Incentive spirometry
��Patient extensively educated on using BiPAP although is refusing. Understands risks of CO2 narcosis, .
� Will closely monitor gases
� Continue hypertonic saline, vest therapy
#Sepsis
� Secondary to pneumonia
� See plan above
Continue to monitor
� Follow-up cultures
#Mass in the right upper lobe, mass in the right apex
# Right lower lobe consolidation, possible central mass
� Unfortunately high risk for bronchoscopy at this time
� May need follow-up once acute event resolves
#Hyperkalemia
� Monitor closely
� May need to give Lokelma within 24 hours
#Elevate troponin
� Most likely nonischemic myocardial injury secondary to restaurant failure
� No chest pain
� Trend troponins until peak
� Echo with normal EF, dilated RV�I suspect secondary to chronic respiratory issues; PE negative
#COPD exacerbation/see plan above
#Diabetes, type II
� Hold metformin
� Sliding scale
� Hemoglobin A1c 6.4
#DVT prophylaxis
� Lovenox
Anticipated Discharge: > 48 hours
Subjective/Interval History
-
Date of Service: August 26, 2024
No acute events overnight
Objective Data
-
Labs:
Laboratory Results
08/26/24
04:57
WBC 10.4
Hgb 13.2
Hct 42.5
Plt Count 235
Sodium 139
Potassium 5.3 H
Chloride 94 L
Carbon Dioxide 35 H
BUN 39 H
Creatinine 0.8
Glucose 189 H
Calcium 8.5
Total Bilirubin 0.5
AST 15 L
ALT 15
Alkaline Phosphatase 52
Vital Signs:
Vital Signs
Temp Pulse Resp BP Pulse Ox
98.1 F 98 24 122/95 93
08/26/24 11:19 08/26/24 12:00 08/26/24 12:00 08/26/24 12:00 08/26/24 16:03
I&O
08/25/24 08/26/24 08/27/24
06:59 06:59 06:59
Intake Total 608 / 608 360 / 360
Output Total 1350 / 1350 750 / 750 450 / 450
Balance -742 / -742 -390 / -390 -450 / -450
Review of Systems
-
History Source: Patient
All other systems: Not reviewed unless documented
Data Reviewed
-
Diagnostic Radiology: Report Reviewed by me
Labs: Labs Reviewed by me
[2024-08-26] MEDS: OCEAN, SALINE MIST 1 SPRAYS NASAL (16:40)
[2024-08-26] MEDS: STERILE WATER FOR INJECTION 10 ML IV (16:42)
[2024-08-26] MEDS: ROCEPHIN 1000 MG IV (16:42)
[2024-08-26] MEDS: NOVOLOG FLEXPEN-MODERATE RESISTANCE 1 UNITS SC (18:07)
[2024-08-26 18:17] LABS: Glucose - Point of Care 172 mg/dl (70-99)
--- NOTE | 2024-08-26 18:48 | PTCARENOTE ---
Addendum entered by Nia Woodard RN 08/26/24 18:58:
Required NRB mask during transfer back to bed.
Original Note:
OOB to chair 1-2 assist with therapy x2.5 hours today- required MSO4- prn dose after transfer for dyspnea but recovered efficiently. Appetite very poor- trying but no appetite. Moist freq sometimes productive cough now- using flutter
periodically. [place] spray NS started was able to blow out some old secretions. High flow weaned to 55L /60% by RT. Remains constipated tried bsc today as well - still unable to have BM. Took Miralax and Senna this am. Abdomen is distended non
tender pt is passing flatus. Voids small amts. Very Anxious at baseline- pt appreciative of care- feels much better after morphine administration.
[2024-08-26] MEDS: LOVENOX 40 MG SC (20:00)
[2024-08-26] MEDS: MELATONIN 5 MG PO (21:27)
[2024-08-26 21:44] LABS: Glucose - Point of Care 140 mg/dl (70-99)
[2024-08-27] VITALS (12 sets, daily range): BP systolic 109–144; BP diastolic 61–103; BMI 23.8
[2024-08-27 05:12] LABS: Hematocrit 43.5 % (39.0-52.0); Hemoglobin 13.4 g/dL (13.0-18.0); Mean Corp Hgb Conc. 30.8 g/dL (33.0-37.0); Mean Corpuscular Hgb 27.7 pg (27.0-31.0); Mean Corpuscular Volume 89.9 fL (80.0-94.0); Mean Platelet Volume 10.7 fL (7.4-10.4); Platelet Count 218 10^3/uL (130-400); Red Blood Cell Count 4.84 10^6/uL (4.70-6.10); Red Cell Dist. Width 13.4 % (11.5-14.5); White Blood Cell Count 14.3 10^3/uL (4.8-10.8)
--- NOTE | 2024-08-27 05:26 | PTCARENOTE ---
Received pt at change of shift. AAOx3. 93% on HFNC 55% 60L. Shallow, labored respirations. Lungs coarse throughout. c/o SOB at rest. PRN morphine administered as ordered. Afebrile throughout shift. Pt resting in bed with call [place] in reach.
[2024-08-27 05:36] LABS: ALT (SGPT) 14 U/L (0-50); AST (SGOT) 17 U/L (17-59); Albumin 2.8 g/dl (3.5-5.0); Alkaline Phosphatase 45 U/L (38-126); Blood Urea Nitrogen 44 mg/dl (9-20); Calcium 8.4 mg/dl (8.4-10.2); Carbon Dioxide 35 mmol/L (22-30); Chloride 94 mmol/L (98-107); Estimated Creatinine Clearance 84 ml/min; Glucose 180 mg/dl (70-99); Phosphorus 3.7 mg/dl (2.5-4.5); Sodium 137 mmol/L (135-145); Total Bilirubin 0.5 mg/dl (0.2-1.3); Total Protein 5.2 g/dl (6.3-8.2); eGFR > 60.00
[2024-08-27] MEDS: SODIUM CHLORIDE 3% FOR INHALATION 1 VIAL INH ×2 (07:56→20:04)
[2024-08-27] MEDS: DUONEB 3 ML INH ×4 (07:56→20:04)
[2024-08-27] MEDS: PULMICORT 0.5 MG INH ×2 (07:56→20:04)
[2024-08-27] MEDS: SENOKOT-S 1 TABLET PO ×2 (08:42→20:29)
[2024-08-27] MEDS: MUCINEX 1200 MG PO ×2 (08:42→20:29)
[2024-08-27] MEDS: VIBRAMYCIN 100 MG PO ×2 (08:42→20:29)
[2024-08-27] MEDS: ASPIR LOW (ENTERIC COATED) 81 MG PO (08:42)
[2024-08-27] MEDS: SOLU-MEDROL PF 40 MG IV ×2 (08:43→15:58)
[2024-08-27 08:45] LABS: Glucose - Point of Care 157 mg/dl (70-99)
[2024-08-27] MEDS: NOVOLOG FLEXPEN-MODERATE RESISTANCE 1 UNITS SC (09:04)
--- NOTE | 2024-08-27 09:56 | W.PN.PUL3 ---
Today's Communication / Plan
-
Continuing to improve subjectively
CTA chest shows a right upper lobe mass concerning for malignancy � will need biopsy once he clinically improves with better O2 requirements
s/p course of remdesivir
Continue with broad-spectrum antibiotics
DuoNebs and budesonide
Recommend to start BiPAP with sleep and prn during the day --> he is refusing BiPAP, and understands the risks of non-compliance including CO-2 narcosis, hypoxia and
Trend blood gas to ensure pH + pCO2 remained stable
Mucolytics
Continue 3% hypertonic saline with vest therapy given his wet sounding cough with poor expectoration and continued shortness of breath
Aspiration precautions
Keep SpO2 88-95%
Will need PT/OT once hypoxia improves
Pulmonary service will continue to follow along
Poor prognosis
Assessment
-
Assessment: 88-year-old male with a past medical history of COPD, restrictive lung disease, chronic rhinitis, former tobacco use, DM2 and history of chronic hypoxic respiratory failure requiring 3 L/min with activity who presents with shortness of
breath. Patient tested positive at home for COVID-19 on this past Thursday (08/19/2024) and was short of breath so called 911. Found to be saturating 70% on room air and placed onto CPAP by EMS and also given a DuoNeb treatment and then brought here
to the ER. Patient also was reportedly cyanotic according to EMS. Upon arrival to the ER he was placed onto BiPAP. In the ER he was febrile to 102.1 �F, pulse rate 135, breathing 42 breaths minute, BP 139/83 and saturating 80% on CPAP. After
patient transitioned to BiPAP his saturations improved to 90%. Patient eventually transitioned to high flow nasal cannula. Initial labs showed leukocytosis of 21, Hb 14.4, serum bicarbonate level 39, troponin 0.143, and COVID antigen was positive.
Flu A/B swab was negative and blood cultures were collected. CXR showed opacification in the right upper lobe, right lower lobe and left lower lobe. He was given cefepime in the ER, vancomycin, Decadron 10 mg, and DuoNebs. Patient being admitted
to the IMU and pulmonary service now consulted for additional management/recommendations.
Chronic conditions [employer]: Chronic rhinitis, restrictive lung disease, former tobacco use, history of chronic hypoxic respiratory failure on 3 L/min with activity, COPD/emphysema, DM type II
Impression:
#Acute respiratory failure with hypoxia due to COVID-19 pneumonia with multifocal GGO seen on initial CXR
#Acute respiratory failure with hypercapnia � relatively stable, albeit slightly worsened on AM of 08/26/2024
#Leukocytosis
#Metabolic alkalosis due to chronic hypercapnic respiratory failure
#Elevated troponin likely due to demand ischemia with type II [place] - peaked at 0.632 on 08/22/2024
#Dilated RV with reduced systolic function � unclear etiology, however given no regional WMA seen this is unlikely due to ACS, need to consider an acute PE although PASP is WNL at 27 mmHg (ruled out via CTA chest on 08/23/2024)
#History of moderate to lung disease
#History of severe COPD/emphysema
#DM type II
#Former tobacco smoker
Plan:
- Continue with high flow nasal cannula and titrate FiO2 + flow rate to keep saturations 88-94%
- He has a wet sounding cough with difficulty getting out his phlegm
- Aspiration precautions
- Spiriva + albuterol MDI 2 puffs QID changed to DuoNebs QID
- Continue budesonide
- prn bronchodilators for breakthrough symptoms
- Continue systemic steroids but on 08/25/2024 I raised his decadron 6mg IV daily to solumedrol 40mg IV q8hr; maintain euglycemia while on steroids with goal BG >100 and <180
- Remdesivir x 5 days (last day on 08/26/2024)
- Mucinex; will continue hypertonic 3% and vest therapy given his worsening SOB since 08/24/2024 with difficulty brining up his phlegm
- If he continues to improve then will lower his Solu-Medrol down to 40 mg IV q12hr over the next 1-2 days
- Given the multifocal groundglass opacification with leukocytosis, continue with empiric antibiotics (rocephin + doxy)
- Procalcitonin elevated at 1.22 --> continue to monitor for trending power
- Follow up blood Cx X2 (collected 08/22/2024)
- trend WBC and monitor fever curve
- Follow up sputum culture (collected on 08/23/2024 - shows NGTD)
- He has a history of chronic hypercapnic respiratory failure with prior baseline pCO2 around 65 --> ABG yesterday morning shows acute on chronic hypercapnia with pH 7.28, pCO2 71
- Recommend to start BiPAP with sleep and prn during the day 12/5cmH2O --> pt refusing BiPAP and is not interested despite risk of worsening hypercapnia with CO2-narcosis. Re-checked blood gas on AM of 08/24/2024 and it shows improvement in pH and
pCO2 consistent with chronic, compensated hypercapnia- continue to trend
- Troponin peaked at 0.632 on 08/22/2024 � no longer need to continue trending
- Transthoracic echo on 08/23/2024 showed dilated RV with reduced systolic function, and he has continued shortness of breath. CTA chest negative for acute PE. Heparin drip started empirically on 08/23, and this can be stopped.
- His CTA chest from 08/23/2024 showed a right apical 2.3 cm nodule with a right upper lobe anterior mass, suspicious for malignancy. Also has a right lower lobe pleural effusion. Would recommend tissue biopsy once he clinically improves with a
bronchoscopy. Right sided chest ultrasound performed on 08/24/2024 and there is minimal right sided fluid, hence not safe for thoracentesis at this time
- Incentive spirometer once he is less lethargic
- Replete electrolytes with K>4, Mg>2
- DVT ppx: LMWH
- Guarded prognosis
GOC Discussion on 08/25/2024: Daughter, Courtney. was updated over the phone. She believes that she gave him covid-19. She says that he has been living for many years with COPD and is surprised that he has even made it this long in life. She
understands that he is critically ill, and agrees with making him comfortable but she does not want to transition to comfort care at this point unless he were to deteriorate further. I answered all her questions, and she verbalized understanding of
the plan above (explained to her in layman's terms).
Pulmonary service will continue to follow along. Pulmonary office follow-up will be arranged after discharge as last visit was on 06/13/[address] Friedman.
Data:
CTA Chest 08/23/2024:
No findings to suggest central pulmonary embolism.
Large irregular mass in the right upper lobe extending to the right hilum, likely smaller mass in the right apex, both must be deemed suspicious for malignancy.
Right lower lobe consolidation, cannot exclude central mass such as malignancy with postobstructive atelectasis.
Some lingular opacity most likely representing subsegmental atelectasis. Small central lesion unlikely but cannot be entirely excluded.
Right hilar and mediastinal lymphadenopathy
When able to be obtained due to, PET scan may be helpful for more complete evaluation.
CXR 08/22/2024:
1. Severe asymmetric opacity in the right upper lobe. Moderate right lower lobe and mild left lower lobe opacities. Diagnostic possibilities are (1) SEVERE PNEUMONIA (most likely given the asymmetric distribution) or (2) much less likely alveolar
pulmonary edema.
2. Mild to moderate scarring in the lower lobes.
3. Mild bilateral lung hyperinflation.
TTE 08/23/2024:
Normal left ventricular size, wall thickness and systolic function.
Dilated right ventricle with reduced systolic function with preserved function
at the base.
No significant valvular disease.
Compared to previous echo 06/07/2019, the right ventricle was normal on the
prior study.
Total time spent today was 56 minutes for this encounter. Time includes reviewing laboratory test/imaging results, reviewing pertinent medical records, obtaining and reviewing medical history, performing an appropriate exam, ordering medications,
tests and procedures. Time also includes documentation of this encounter, coordinating patient care and communicating with other healthcare professionals. Total time does not include separately billed tests performed on this date of service.
Subjective Data
-
Date of Service:
Date of Service: August 27, 2024
Chief Complaint: Pulmonary Follow Up
Subjective:
Patient seen and evaluated this morning � late note entry. Currently saturating 93% on high flow nasal cannula at FiO2 55%, 50 L/min. BP 115/80 and heart rate 101. He says that he feels better today, although still having periods of shortness of
breath which is improved with the morphine. Denies abdominal pain, nausea, fevers or chills.
Review of Systems
General: Other (Negative unless mentioned above)
Objective Data
Data Reviewed
Vital Signs / I&O / Oxygen:
Vital Signs
Temp Pulse Resp BP Pulse Ox
97.5 F 86 20 129/102 95
08/27/24 04:47 08/27/24 08:02 08/27/24 08:02 08/27/24 04:00 08/27/24 08:11
Intake and Output
08/26/24 08/27/24 08/28/24
06:59 06:59 06:59
Intake Total 360 / 360 1110 / 1110 240 / 240
Output Total 750 / 750 2049 / 2049 150 / 150
Balance -390 / -390 -940 / -940 90 / 90
SaO2 95
Nasal Cannula flow liters per 50
minute
Physical Exam
General: Respiratory Distress (negative), Comfortable, Chills (negative) and Sweats (negative)
HEENT: Normocephalic and Anicteric
Cardiovascular: S1-S2, Rub (negative), Peripheral Edema (negative) and Other (Tachycardic)
Respiratory: Wheeze (negative), Crackles (Bilateral), Rhonchi (Bilateral), Non-Labored Respirations, Accessory Resp Muscle Use (negative), Stridor (negative) and Other (Grossly diminished breath sounds b/l)
GI: Soft, Non Distended, Non Tender and Normal Bowel Sounds
Neurology: AO x 3 and Tremors (negative)
Skin: Warm, Dry, Cyanosis (negative) and Jaundice (negative)
Labs/Micro/Reports
Lab Data
08/27/24 04:38
08/27/24 04:38
Microbiology
08/26/24 12:50 Nose Nasal Screen MRSA (PCR) - Final
MRSA not detected - performed by PCR methodology.
08/22/24 11:37 Blood/Venous Blood Culture - Preliminary
No Growth in 4 days- Final report to follow
08/22/24 11:40 Blood/Venous Blood Culture - Preliminary
No Growth in 4 days- Final report to follow
08/26/24 04:57 Nose Nasal Screen MRSA (PCR) - Final
[2024-08-27 11:26] LABS: Glucose - Point of Care 221 mg/dl (70-99)
[2024-08-27] MEDS: NOVOLOG FLEXPEN-MODERATE RESISTANCE 3 UNITS SC ×2 (11:57→16:12)
--- NOTE | 2024-08-27 14:27 | W.PN.HOSP.TC ---
Today's Communication/Plan
-
Continue antibiotics
Steroids, can most likely continue weaning by tomorrow
Wean O2 as tolerated
Early ambulation
Assessment / Plan
Assessment / Plan
HEENT: Normocephalic and Anicteric
Cardiovascular: S1/S2 and Peripheral Edema (negative)
Respiratory: Wheeze (Predominantly in the left hemithorax), (Diminished breath sounds in the right hemithorax)
GI: Soft, Non Distended, Non Tender and Normal Bowel Sounds
Neurology: Tremors (negative)
Skin: Warm and Dry
General: Respiratory Distress (negative), Chills (negative) and Sweats (negative)
#Acute on chronic hypoxic and hypercapnic respiratory failure
#Respiratory acidosis with compensated metabolic acidosis
Secondary to #SARS-CoV-2 along with #possible superimposed bacterial pneumonia
� Currently on high flow nasal cannula although with tachypnea, can place on BiPAP.
�Aspiration precautions
� Continue nebulizers
� Continue IV steroids
� Completed remdesivir
� NIV as needed, can place on NIV for assistance
� Continue empiric antibiotics, day 5
� Follow-up cultures�no growth to date
� Sputum cultures if expectorating
� Incentive spirometry
��Patient extensively educated on using BiPAP although is refusing. Understands risks of CO2 narcosis, .
� Will closely monitor gases
� Continue hypertonic saline, vest therapy
#Sepsis
� Secondary to pneumonia
� See plan above
Continue to monitor
� Follow-up cultures
#Mass in the right upper lobe, mass in the right apex
# Right lower lobe consolidation, possible central mass
� Unfortunately high risk for bronchoscopy at this time
� May need follow-up once acute event resolves
#Hyperkalemia
� Monitor closely
#Elevated troponin
� Most likely nonischemic myocardial injury secondary to restaurant failure
� No chest pain
� Trend troponins until peak
� Echo with normal EF, dilated RV�I suspect secondary to chronic respiratory issues; PE negative
#COPD exacerbation/see plan above
#Diabetes, type II
� Hold metformin
� Sliding scale
� Hemoglobin A1c 6.4
#DVT prophylaxis
� Lovenox
Anticipated Discharge: > 48 hours
Subjective/Interval History
-
Date of Service: August 27, 2024
No acute events overnight
Objective Data
-
Labs:
Laboratory Results
08/27/24
04:38
WBC 14.3 H
Hgb 13.4
Hct 43.5
Plt Count 218
Sodium 137
Potassium 5.0
Chloride 94 L
Carbon Dioxide 35 H
BUN 44 H
Creatinine 0.6 L
Glucose 180 H
Calcium 8.4
Total Bilirubin 0.5
AST 17
ALT 14
Alkaline Phosphatase 45
Vital Signs:
Vital Signs
Temp Pulse Resp BP Pulse Ox
98.9 F 94 33 118/61 93
08/27/24 11:22 08/27/24 12:00 08/27/24 12:00 08/27/24 12:00 08/27/24 13:33
I&O
08/26/24 08/27/24 08/28/24
06:59 06:59 06:59
Intake Total 360 / 360 1110 / 1110 240 / 240
Output Total 750 / 750 2050 / 2050 150 / 150
Balance -390 / -390 -940 / -940 90 / 90
Review of Systems
-
History Source: Patient
All other systems: Not reviewed unless documented
Data Reviewed
-
Diagnostic Radiology: Report Reviewed by me
Labs: Labs Reviewed by me
[2024-08-27 16:27] LABS: Glucose - Point of Care 216 mg/dl (70-99)
[2024-08-27] MEDS: STERILE WATER FOR INJECTION 10 ML IV (18:26)
[2024-08-27] MEDS: ROCEPHIN 1000 MG IV (18:26)
[2024-08-27] MEDS: LOVENOX 40 MG SC (20:29)
[2024-08-27] MEDS: MELATONIN 5 MG PO (21:45)
[2024-08-27] MEDS: MORPHINE SULFATE 2 MG IV (21:45)
[2024-08-27 21:59] LABS: Glucose - Point of Care 234 mg/dl (70-99)
--- NOTE | 2024-08-27 23:14 | PTCARENOTE ---
Received pt at change of shift. HFNC in place at 55% and 55L. Pulse ox 94%. Lungs are coarse throughout with an exp wheeze; labored respirations, tachypneic. PRN Morphine administered for dyspnea per order (see MAR). Pt resting in bed with call
[place] in reach.
[2024-08-28] VITALS (14 sets, daily range): BP systolic 115–151; BP diastolic 62–126; BMI 23.8
[2024-08-28] MEDS: SOLU-MEDROL PF 40 MG IV ×4 (00:49→23:47)
[2024-08-28] MEDS: XOPENEX 0.63 MG INHALANT SOLUTION INH ×2 (02:48→17:31)
[2024-08-28 04:59] LABS: Venous Blood Gas HCO3 37.2 mmol/L (22-27); Venous Blood Gas O2 Sat % 99.3 %; Venous Blood Gas pCO2 60 mmHg (35-48); Venous Blood Gas pO2 120 mmHg (30-50)
[2024-08-28 05:30] LABS: Hematocrit 41.5 % (39.0-52.0); Hemoglobin 13.2 g/dL (13.0-18.0); Mean Corp Hgb Conc. 31.8 g/dL (33.0-37.0); Mean Corpuscular Hgb 28.3 pg (27.0-31.0); Mean Corpuscular Volume 89.1 fL (80.0-94.0); Mean Platelet Volume 10.3 fL (7.4-10.4); Platelet Count 217 10^3/uL (130-400); Red Blood Cell Count 4.66 10^6/uL (4.70-6.10); Red Cell Dist. Width 13.4 % (11.5-14.5); White Blood Cell Count 14.2 10^3/uL (4.8-10.8)
[2024-08-28 05:50] LABS: ALT (SGPT) 18 U/L (0-50); AST (SGOT) 16 U/L (17-59); Albumin 2.9 g/dl (3.5-5.0); Alkaline Phosphatase 54 U/L (38-126); Blood Urea Nitrogen 44 mg/dl (9-20); Calcium 8.7 mg/dl (8.4-10.2); Carbon Dioxide 37 mmol/L (22-30); Chloride 92 mmol/L (98-107); Estimated Creatinine Clearance 72 ml/min; Glucose 206 mg/dl (70-99); Potassium 4.9 mmol/L (3.5-5.1); Sodium 135 mmol/L (135-145); Total Bilirubin 0.5 mg/dl (0.2-1.3); Total Protein 5.4 g/dl (6.3-8.2); eGFR > 60.00
[2024-08-28 05:52] LABS: Procalcitonin 0.09 ng/ml (0.0-0.25)
--- NOTE | 2024-08-28 07:00 | PTCARENOTE ---
report received from previous RN. pt AAOX3, generalized weakness throughout. pt denies pain. SOB noted. pt on high flow nasal cannula, fiO2 55%, 55L. lung sounds coarse, rhonchi throughout. intermittent moist cough. SR with frequent pacs on
telemetry occasional pvcs. heart rate in 80s. pulses palpable. trace lower extremity edema. active bowel sounds. poor appetite. voiding frequently in urinal small amounts. pt updated on plan of care. see worklist for full nursing assessment and
interventions.
[2024-08-28] MEDS: DUONEB 3 ML INH ×4 (07:30→20:34)
[2024-08-28] MEDS: SODIUM CHLORIDE 3% FOR INHALATION 1 VIAL INH ×2 (07:30→20:34)
[2024-08-28] MEDS: PULMICORT 0.5 MG INH ×2 (07:30→20:34)
[2024-08-28] MEDS: MORPHINE SULFATE 2 MG IV ×3 (08:32→23:48)
[2024-08-28] MEDS: ASPIR LOW (ENTERIC COATED) 81 MG PO (08:33)
[2024-08-28] MEDS: VIBRAMYCIN 100 MG PO (08:33)
[2024-08-28] MEDS: MUCINEX 1200 MG PO ×2 (08:33→20:18)
[2024-08-28] MEDS: SENOKOT-S 1 TABLET PO ×2 (08:33→20:18)
[2024-08-28] MEDS: NOVOLOG FLEXPEN-MODERATE RESISTANCE 1 UNITS SC (08:44)
[2024-08-28 08:49] LABS: Glucose - Point of Care 198 mg/dl (70-99)
--- NOTE | 2024-08-28 09:23 | W.PN.PUL3 ---
Today's Communication / Plan
-
Continuing to improve subjectively
CTA chest shows a right upper lobe mass concerning for malignancy � will need biopsy once he clinically improves with better O2 requirements
s/p course of remdesivir
Continue with broad-spectrum antibiotics
DuoNebs and budesonide
Recommend to start BiPAP with sleep and prn during the day --> he is refusing BiPAP, and understands the risks of non-compliance including CO-2 narcosis, hypoxia and
Trend blood gas to ensure pH + pCO2 remained stable
Mucolytics
Continue 3% hypertonic saline with vest therapy given his wet sounding cough with poor expectoration and continued shortness of breath
Aspiration precautions
Keep SpO2 88-95%
Will need PT/OT once hypoxia improves
Pulmonary service will continue to follow along
Poor prognosis
Assessment
-
Assessment: 88-year-old male with a past medical history of COPD, restrictive lung disease, chronic rhinitis, former tobacco use, DM2 and history of chronic hypoxic respiratory failure requiring 3 L/min with activity who presents with shortness of
breath. Patient tested positive at home for COVID-19 on this past Thursday (08/19/2024) and was short of breath so called 911. Found to be saturating 70% on room air and placed onto CPAP by EMS and also given a DuoNeb treatment and then brought here
to the ER. Patient also was reportedly cyanotic according to EMS. Upon arrival to the ER he was placed onto BiPAP. In the ER he was febrile to 102.1 �F, pulse rate 135, breathing 42 breaths minute, BP 139/83 and saturating 80% on CPAP. After
patient transitioned to BiPAP his saturations improved to 90%. Patient eventually transitioned to high flow nasal cannula. Initial labs showed leukocytosis of 21, Hb 14.4, serum bicarbonate level 39, troponin 0.143, and COVID antigen was positive.
Flu A/B swab was negative and blood cultures were collected. CXR showed opacification in the right upper lobe, right lower lobe and left lower lobe. He was given cefepime in the ER, vancomycin, Decadron 10 mg, and DuoNebs. Patient being admitted
to the IMU and pulmonary service now consulted for additional management/recommendations.
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
Impression:
#Acute respiratory failure with hypoxia due to COVID-19 pneumonia with multifocal GGO seen on initial CXR
#Acute respiratory failure with hypercapnia � stable per ABG on AM of 08/28/2024
#Leukocytosis
#Metabolic alkalosis due to chronic hypercapnic respiratory failure
#Elevated troponin likely due to demand ischemia with type II [place] - peaked at 0.632 on 08/22/2024
#Dilated RV with reduced systolic function � unclear etiology, however given no regional WMA seen this is unlikely due to ACS, need to consider an acute PE although PASP is WNL at 27 mmHg (ruled out via CTA chest on 08/23/2024)
#History of moderate to lung disease
#History of severe COPD/emphysema
#DM type II
#Former tobacco smoker
Plan:
- Continue with high flow nasal cannula and titrate FiO2 + flow rate to keep saturations 88-94%
- He has a wet sounding cough with difficulty getting out his phlegm
- Aspiration precautions
- Spiriva + albuterol MDI 2 puffs QID changed to DuoNebs QID
- Continue budesonide
- prn bronchodilators for breakthrough symptoms
- Continue systemic steroids but on 08/25/2024 I raised his decadron 6mg IV daily to solumedrol 40mg IV q8hr; maintain euglycemia while on steroids with goal BG >100 and <180
- Hopefully can lower his steroids down to 40mg IV q12hr over next 1-2 days if FiO2 requirements continue to improve - no change for now
- Remdesivir x 5 days (last day on 08/26/2024)
- Mucinex; will continue hypertonic 3% and vest therapy given his worsening SOB since 08/24/2024 with difficulty brining up his phlegm
- Given the multifocal groundglass opacification with leukocytosis, continue with empiric antibiotics (rocephin + doxy - last day of doxy today)
- Would treat for total of 7 days (Abx started on 08/22/2024)
- Procalcitonin elevated at 1.22 --> 0.09 on 08/28/2024 indicating we have adequate source control
- Follow up blood Cx X2 (collected 08/22/2024)
- trend WBC and monitor fever curve
- Follow up sputum culture (collected on 08/23/2024 - shows NGTD)
- He has a history of chronic hypercapnic respiratory failure with prior baseline pCO2 around 65 --> ABG from 08/23/2024 showed acute on chronic hypercapnia with pH 7.28, pCO2 71
- Recommend to start BiPAP with sleep and prn during the day 12/5cmH2O --> pt refusing BiPAP and is not interested despite risk of worsening hypercapnia with CO2-narcosis. Re-checked blood gas on AM of 08/24/2024 and it shows improvement in pH and
pCO2 consistent with chronic, compensated hypercapnia- continue to trend (pH and pCO2 still stable on repeat ABG AM of 08/28/2024)
- Troponin peaked at 0.632 on 08/22/2024 � no longer need to continue trending
- Transthoracic echo on 08/23/2024 showed dilated RV with reduced systolic function, and he has continued shortness of breath. CTA chest negative for acute PE. Heparin drip started empirically on 08/23, and this can be stopped.
- His CTA chest from 08/23/2024 showed a right apical 2.3 cm nodule with a right upper lobe anterior mass, suspicious for malignancy. Also has a right lower lobe pleural effusion. Would recommend tissue biopsy once he clinically improves with a
bronchoscopy. Right sided chest ultrasound performed on 08/24/2024 and there is minimal right sided fluid, hence not safe for thoracentesis at this time
- Incentive spirometer once he is less lethargic
- Replete electrolytes with K>4, Mg>2
- DVT ppx: LMWH
- Guarded prognosis
[facility] Discussion on 08/25/2024: Daughter, Courtney, was updated over the phone by Dr. Cunningham. She believes that she gave him covid-19. She says that he has been living for many years with COPD and is surprised that he has even made it this long in
life. She understands that he is critically ill, and agrees with making him comfortable but she does not want to transition to comfort care at this point unless he were to deteriorate further. I answered all her questions, and she verbalized
understanding of the plan above (explained to her in layman's terms).
Pulmonary service will continue to follow along. Pulmonary office follow-up will be arranged after discharge as last visit was on 06/13/[address] Friedman.
Data:
CTA Chest 08/23/2024:
No findings to suggest central pulmonary embolism.
Large irregular mass in the right upper lobe extending to the right hilum, likely smaller mass in the right apex, both must be deemed suspicious for malignancy.
Right lower lobe consolidation, cannot exclude central mass such as malignancy with postobstructive atelectasis.
Some lingular opacity most likely representing subsegmental atelectasis. Small central lesion unlikely but cannot be entirely excluded.
Right hilar and mediastinal lymphadenopathy
When able to be obtained due to, PET scan may be helpful for more complete evaluation.
CXR 08/22/2024:
1. Severe asymmetric opacity in the right upper lobe. Moderate right lower lobe and mild left lower lobe opacities. Diagnostic possibilities are (1) SEVERE PNEUMONIA (most likely given the asymmetric distribution) or (2) much less likely alveolar
pulmonary edema.
2. Mild to moderate scarring in the lower lobes.
3. Mild bilateral lung hyperinflation.
TTE 08/23/2024:
Normal left ventricular size, wall thickness and systolic function.
Dilated right ventricle with reduced systolic function with preserved function
at the base.
No significant valvular disease.
Compared to previous echo 06/07/2019, the right ventricle was normal on the
prior study.
Total time spent today was 52 minutes for this encounter. Time includes reviewing laboratory test/imaging results, reviewing pertinent medical records, obtaining and reviewing medical history, performing an appropriate exam, ordering medications,
tests and procedures. Time also includes documentation of this encounter, coordinating patient care and communicating with other healthcare professionals. Total time does not include separately billed tests performed on this date of service.
Subjective Data
-
Date of Service:
Date of Service: August 28, 2024
Chief Complaint: Pulmonary Follow Up
Subjective:
Patient seen earlier this morning (late note entry). He feels that he has poor energy and once he starts to exert himself he gets very fatigued and that is when he gets extremely short of breath. Still feels that the morphine is the thing that
helps him the most. Currently on high flow nasal cannula 50% FiO2, 50 L/min. He denies chest pain, nausea, vomiting, fevers or chills.
Review of Systems
General: Other (Negative unless mentioned above)
Objective Data
Data Reviewed
Vital Signs / I&O / Oxygen:
Vital Signs
Temp Pulse Resp BP Pulse Ox
98.1 F 99 33 143/105 93
08/28/24 08:46 08/28/24 08:00 08/28/24 08:00 08/28/24 08:00 08/28/24 08:46
Intake and Output
08/27/24 08/28/24 08/29/24
06:59 06:59 06:59
Intake Total 1110 / 1110 720 / 720
Output Total 2049 1125 / 1125
Balance -940 / -940 -405 / -405
SaO2 93
Nasal Cannula flow liters per 50
minute
Physical Exam
General: Respiratory Distress (negative), Comfortable, Chills (negative) and Sweats (negative)
HEENT: Normocephalic and Anicteric
Cardiovascular: S1-S2, Rub (negative), Peripheral Edema (negative) and Other (Tachycardic)
Respiratory: Wheeze (negative), Crackles (Bilateral), Rhonchi (Bilateral), Non-Labored Respirations, Accessory Resp Muscle Use (negative) and Stridor (negative)
GI: Soft, Non Distended, Non Tender and Normal Bowel Sounds
Neurology: AO x 3 and Tremors (negative)
Skin: Warm, Dry, Cyanosis (negative) and Jaundice (negative)
Labs/Micro/Reports
Lab Data
08/28/24 04:51
08/28/24 04:51
Microbiology
08/22/24 11:40 Blood/Venous Blood Culture - Final
No Growth - Final Report
08/22/24 11:37 Blood/Venous Blood Culture - Final
No Growth - Final Report
08/26/24 12:50 Nose Nasal Screen MRSA (PCR) - Final
MRSA not detected - performed by PCR methodology.
08/26/24 04:57 Nose Nasal Screen MRSA (PCR) - Final
--- NOTE | 2024-08-28 13:54 | W.PN.HOSP.TC ---
Today's Communication/Plan
-
wean o2
steroids
abx
Assessment / Plan
Assessment / Plan
HEENT: Normocephalic and Anicteric
Cardiovascular: S1/S2 and Peripheral Edema (negative)
Respiratory: Wheeze (Predominantly in the left hemithorax), (Diminished breath sounds in the right hemithorax)
GI: Soft, Non Distended, Non Tender and Normal Bowel Sounds
Neurology: Tremors (negative)
Skin: Warm and Dry
General: Respiratory Distress (negative), Chills (negative) and Sweats (negative)
#Acute on chronic hypoxic and hypercapnic respiratory failure
#Respiratory acidosis with compensated metabolic acidosis
Secondary to #SARS-CoV-2 along with #possible superimposed bacterial pneumonia
� Currently on high flow nasal cannula although with tachypnea, can place on BiPAP.
�Aspiration precautions
� Continue nebulizers
� Continue IV steroids
� Completed remdesivir
� NIV as needed, can place on NIV for assistance although very anxious
� Continue empiric antibiotics, day 7, discontinue doxycycline. Can continue ceftriaxone for 10 to 14 days.
� Follow-up cultures�no growth to date
� Sputum cultures if expectorating
� Incentive spirometry
��Patient extensively educated on using BiPAP although is refusing. Understands risks of CO2 narcosis, .
� Will closely monitor gases
� Continue hypertonic saline, vest therapy
#Sepsis
� Secondary to pneumonia
� See plan above
Continue to monitor
� Follow-up cultures
#Mass in the right upper lobe, mass in the right apex
# Right lower lobe consolidation, possible central mass
� Unfortunately high risk for bronchoscopy at this time
� May need follow-up once acute event resolves
#Hyperkalemia
� Monitor closely
#Elevated troponin
� Most likely nonischemic myocardial injury secondary to restaurant failure
� No chest pain
� Trend troponins until peak
� Echo with normal EF, dilated RV�I suspect secondary to chronic respiratory issues; PE negative
#COPD exacerbation/see plan above
#Diabetes, type II
� Hold metformin
� Sliding scale
� Hemoglobin A1c 6.4
#DVT prophylaxis
� Lovenox
Anticipated Discharge: > 48 hours
Subjective/Interval History
-
Date of Service: August 28, 2024
No acute events overnight
Objective Data
-
Labs:
Laboratory Results
08/28/24
04:51
WBC 14.2 H
Hgb 13.2
Hct 41.5
Plt Count 217
Sodium 135
Potassium 4.9
Chloride 92 L
Carbon Dioxide 37 H
BUN 44 H
Creatinine 0.7
Glucose 206 H
Calcium 8.7
Total Bilirubin 0.5
AST 16 L
ALT 18
Alkaline Phosphatase 54
Vital Signs:
Vital Signs
Temp Pulse Resp BP Pulse Ox
98.1 F 82 18 143/105 92
08/28/24 08:46 08/28/24 11:19 08/28/24 11:19 08/28/24 08:00 08/28/24 11:19
I&O
08/27/24 08/28/24 08/29/24
06:59 06:59 06:59
Intake Total 1110 / 1110 720 / 720
Output Total 2049 1125 / 1125 450 / 450
Balance -940 / -940 -405 / -405 -450 / -450
Review of Systems
-
History Source: Patient
All other systems: Not reviewed unless documented
Data Reviewed
-
Diagnostic Radiology: Report Reviewed by me
Labs: Labs Reviewed by me
[2024-08-28 14:04] LABS: Glucose - Point of Care 236 mg/dl (70-99)
[2024-08-28] MEDS: NOVOLOG FLEXPEN-MODERATE RESISTANCE 3 UNITS SC ×2 (14:33→17:48)
[2024-08-28] MEDS: ROCEPHIN 1000 MG IV (17:23)
[2024-08-28] MEDS: STERILE WATER FOR INJECTION 10 ML IV (17:23)
[2024-08-28 17:41] LABS: Glucose - Point of Care 210 mg/dl (70-99)
[2024-08-28] MEDS: LOVENOX 40 MG SC (20:17)
[2024-08-28] MEDS: TUMS CHEWABLE TABLET 200 MG PO (20:28)
[2024-08-28 21:46] LABS: Glucose - Point of Care 257 mg/dl (70-99)
[2024-08-28] MEDS: NSS (PRESERVATIVE FREE) 8 ML IV (21:57)
[2024-08-28] MEDS: PEPCID 20 MG IV (21:57)
[2024-08-28] MEDS: MELATONIN 5 MG PO (21:57)
--- NOTE | 2024-08-28 23:54 | PTCARENOTE ---
Pt reporting symptoms (burning pain in chest, regurgitation, burping, and increased SOB) consistent with heartburn/reflux. Provider notified - ordered tums. Tums administered with little to no effect. Informed provider and given order for Pepcid -
administered to Pt with + effect. Will continue to monitor and assess.
[2024-08-29] VITALS (15 sets, daily range): BP systolic 97–136; BP diastolic 64–115; PULSE 89; O2SAT 92
--- NOTE | 2024-08-29 03:23 | PTCARENOTE ---
Noted Pt to have SpO2 of 83% on monitor. Once in room, found that Pt removed high flow nasal cannula, climbed OOB, urinated on floor and put himself in the recliner chair. Pt was initially confused on how he got there but was easily reoriented.
Pt placed on high flow and NRB and quickly recovered to 97%. Cleaned Pt and applied new gown and changed bed sheets. Bed alarm turned on. Will continue to monitor and assess.
[2024-08-29 04:29] LABS: Hematocrit 44.4 % (39.0-52.0); Hemoglobin 13.8 g/dL (13.0-18.0); Mean Corp Hgb Conc. 31.1 g/dL (33.0-37.0); Mean Corpuscular Volume 90.1 fL (80.0-94.0); Mean Platelet Volume 10.4 fL (7.4-10.4); Platelet Count 231 10^3/uL (130-400); Red Blood Cell Count 4.93 10^6/uL (4.70-6.10); Red Cell Dist. Width 13.4 % (11.5-14.5)
[2024-08-29 04:50] LABS: ALT (SGPT) 19 U/L (0-50); AST (SGOT) 16 U/L (17-59); Alkaline Phosphatase 52 U/L (38-126); Blood Urea Nitrogen 34 mg/dl (9-20); Calcium 8.6 mg/dl (8.4-10.2); Carbon Dioxide 38 mmol/L (22-30); Chloride 91 mmol/L (98-107); Estimated Creatinine Clearance 72 ml/min; Glucose 229 mg/dl (70-99); Potassium 5.3 mmol/L (3.5-5.1); Sodium 134 mmol/L (135-145); Total Bilirubin 0.5 mg/dl (0.2-1.3); Total Protein 5.5 g/dl (6.3-8.2); eGFR > 60.00
[2024-08-29] MEDS: PULMICORT 0.5 MG INH ×2 (08:01→19:31)
[2024-08-29] MEDS: SODIUM CHLORIDE 3% FOR INHALATION 1 VIAL INH ×2 (08:01→19:31)
[2024-08-29] MEDS: DUONEB 3 ML INH ×4 (08:01→19:31)
[2024-08-29] MEDS: TESSALON PERLES 100 MG PO (08:34)
[2024-08-29] MEDS: SOLU-MEDROL PF 40 MG IV (08:34)
[2024-08-29] MEDS: MIRALAX 17 GRAMS PO (08:34)
[2024-08-29] MEDS: SENOKOT-S 1 TABLET PO ×2 (08:34→21:53)
[2024-08-29] MEDS: OCEAN, SALINE MIST 2 SPRAYS NASAL ×3 (08:35→17:32)
[2024-08-29] MEDS: MUCINEX 1200 MG PO ×2 (08:35→21:52)
[2024-08-29] MEDS: ASPIR LOW (ENTERIC COATED) 81 MG PO (08:35)
[2024-08-29] MEDS: NOVOLOG FLEXPEN-MODERATE RESISTANCE 1 UNITS SC ×2 (08:36→11:32)
[2024-08-29 08:44] LABS: Glucose - Point of Care 189 mg/dl (70-99)
--- NOTE | 2024-08-29 08:48 | W.PN.PUL3 ---
Today's Communication / Plan
-
Transitioned off HFNC to MF, can wean back to baseline use of 3L as tolerated
Prednisone taper
Encouraged ambulation/OOB/PT
If able to get back to home O2 use, can assess for d/c planning
Pulm OP FU recommended
Assessment
-
88-year-old male with a past medical history of COPD, restrictive lung disease, chronic rhinitis, former tobacco use, DM2 and history of chronic hypoxic respiratory failure requiring 3 L/min with activity who presents with shortness of breath.
Patient tested positive at home for COVID-19 on this past Thursday (08/19/2024) and was short of breath so called 911. Found to be saturating 70% on room air and placed onto CPAP by EMS and also given a DuoNeb treatment and then brought here to the
ER. Patient also was reportedly cyanotic according to EMS. Upon arrival to the ER he was placed onto BiPAP. In the ER he was febrile to 102.1 �F, pulse rate 135, breathing 42 breaths minute, BP 139/83 and saturating 80% on CPAP. After patient
transitioned to BiPAP his saturations improved to 90%. Patient eventually transitioned to high flow nasal cannula. Initial labs showed leukocytosis of 21, Hb 14.4, serum bicarbonate level 39, troponin 0.143, and COVID antigen was positive. Flu
A/B swab was negative and blood cultures were collected. CXR showed opacification in the right upper lobe, right lower lobe and left lower lobe. He was given cefepime in the ER, vancomycin, Decadron 10 mg, and DuoNebs. Patient being admitted to
the IMU and pulmonary service now consulted for additional management/recommendations.
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
Impression:
#Acute respiratory failure with hypoxia due to COVID-19 pneumonia with multifocal GGO seen on initial CXR
#Acute respiratory failure with hypercapnia � stable per ABG on AM of 08/28/2024
#Leukocytosis
#Metabolic alkalosis due to chronic hypercapnic respiratory failure
#Elevated troponin likely due to demand ischemia with type II [place] - peaked at 0.632 on 08/22/2024
#Dilated RV with reduced systolic function � unclear etiology, however given no regional WMA seen this is unlikely due to ACS, need to consider an acute PE although PASP is WNL at 27 mmHg (ruled out via CTA chest on 08/23/2024)
#History of moderate to lung disease
#History of severe COPD/emphysema
#DM type II
#Former tobacco smoker
Plan:
Weaned off high flow nasal cannula and titrate FiO2 + flow rate to keep saturations 88-94%
Baseline use of 3L NC
Wean down to baseline as able
- He has a wet sounding cough with difficulty getting out his phlegm
- Aspiration precautions
- Spiriva + albuterol MDI 2 puffs QID changed to DuoNebs QID
- Continue budesonide
- prn bronchodilators for breakthrough symptoms
- Continue systemic steroids but on 08/25/2024 I raised his decadron 6mg IV daily to solumedrol 40mg IV q8hr; maintain euglycemia while on steroids with goal BG >100 and <180
- Hopefully can lower his steroids down to 40mg IV q12hr over next 1-2 days if FiO2 requirements continue to improve - no change for now
- Remdesivir x 5 days (last day on 08/26/2024)
- Given the multifocal groundglass opacification with leukocytosis, continue with empiric antibiotics (rocephin + doxy - last day of doxy today)
- Would treat for total of 7 days (Abx started on 08/22/2024)
- Procalcitonin elevated at 1.22 --> 0.09 on 08/28/2024 indicating we have adequate source control
- Follow up blood Cx X2 (collected 08/22/2024)
- trend WBC and monitor fever curve
- Follow up sputum culture (collected on 08/23/2024 - shows NGTD)
He has a history of chronic hypercapnic respiratory failure with prior baseline pCO2 around 65 --> ABG from 08/23/2024 showed acute on chronic hypercapnia with pH 7.28, pCO2 71
Recommend to start BiPAP with sleep and prn during the day 12/5cmH2O --> pt refusing BiPAP and is not interested despite risk of worsening hypercapnia with CO2-narcosis.
Re-checked blood gas on AM of 08/24/2024 and it shows improvement in pH and pCO2 consistent with chronic, compensated hypercapnia- continue to trend
(pH and pCO2 still stable on repeat ABG AM of 08/28/2024)
- Troponin peaked at 0.632 on 08/22/2024 � no longer need to continue trending
- Transthoracic echo on 08/23/2024 showed dilated RV with reduced systolic function, and he has continued shortness of breath.
CTA chest negative for acute PE. Heparin drip started empirically on 08/23, and this can be stopped.
RUL mass
His CTA chest from 08/23/2024 showed a right apical 2.3 cm nodule with a right upper lobe anterior mass, suspicious for malignancy. Also has a right lower lobe pleural effusion.
Would recommend tissue biopsy once he clinically improves with a bronchoscopy, can be arranged as OP
Right sided chest ultrasound performed on 08/24/2024 and there is minimal right sided fluid, hence not safe for thoracentesis at this time
- Incentive spirometer once he is less lethargic
- Replete electrolytes with K>4, Mg>2
- DVT ppx: LMWH
- Guarded prognosis
Pulmonary service will continue to follow along.
Pulmonary office follow-up will be arranged after discharge as last visit was on 06/13/[address] Friedman.
Family Discussions
[facility] Discussion on 08/25/2024: Daughter, Courtney, was updated over the phone by Dr. Cunningham. She believes that she gave him covid-19. She says that he has been living for many years with COPD and is surprised that he has even made it this long in
life. She understands that he is critically ill, and agrees with making him comfortable but she does not want to transition to comfort care at this point unless he were to deteriorate further. I answered all her questions, and she verbalized
understanding of the plan above.
Diagnostic Data
CTA Chest 08/23/2024: No findings to suggest central pulmonary embolism. Large irregular mass in the right upper lobe extending to the right hilum, likely smaller mass in the right apex, both must be deemed suspicious for malignancy. Right lower lobe
consolidation, cannot exclude central mass such as malignancy with postobstructive atelectasis. Some lingular opacity most likely representing subsegmental atelectasis. Small central lesion unlikely but cannot be entirely excluded. Right hilar and
mediastinal lymphadenopathy. When able to be obtained due to, PET scan may be helpful for more complete evaluation.
CXR 08/25/24- Slight improvement in airspace opacity within the right upper lung, suggesting improvement in atelectasis and/or pneumonia. Slight interval increase in parenchymal opacity in the right lower lung and the medial left lower lung, with
main differential considerations of atelectasis and/or pneumonia.
CXR 08/22/2024: 1. Severe asymmetric opacity in the right upper lobe. Moderate right lower lobe and mild left lower lobe opacities. Diagnostic possibilities are (1) SEVERE PNEUMONIA (most likely given the asymmetric distribution) or (2) much less
likely alveolar pulmonary edema.
2. Mild to moderate scarring in the lower lobes. 3. Mild bilateral lung hyperinflation.
TTE 08/23/2024: Normal left ventricular size, wall thickness and systolic function. Dilated right ventricle with reduced systolic function with preserved function at the base. No significant valvular disease.
Compared to previous echo 06/07/2019, the right ventricle was normal on the prior study.
-----
Total time spent today was 52 minutes for this encounter. Time includes reviewing laboratory test/imaging results, reviewing pertinent medical records, obtaining and reviewing medical history, performing an appropriate exam, ordering medications,
tests and procedures. Time also includes documentation of this encounter, coordinating patient care and communicating with other healthcare professionals. Total time does not include separately billed tests performed on this date of service.
Subjective Data
-
Date of Service:
Date of Service: August 29, 2024
Chief Complaint: Pulmonary Follow Up
Subjective:
No new complaints, sitting in chair
Off HFNC
Remains in isolation
Objective Data
Data Reviewed
Vital Signs / I&O / Oxygen:
Vital Signs
Temp Pulse Resp BP Pulse Ox
98.0 F 91 18 117/99 96
08/29/24 03:31 08/29/24 08:12 08/29/24 08:12 08/29/24 08:01 08/29/24 08:12
Intake and Output
08/28/24 08/29/24 08/30/24
06:59 06:59 06:59
Intake Total 720 / 720 480 / 480
Output Total 1125 / 1125 1825 / 1825
Balance -405 / -405 -1345 / -1345
SaO2 96
Nasal Cannula flow liters per 40
minute
Physical Exam
General: Respiratory Distress (negative), Comfortable, Chills (negative) and Sweats (negative)
HEENT: Normocephalic and Anicteric
Cardiovascular: S1-S2, Rub (negative), Peripheral Edema (negative) and Other (Tachycardic)
Respiratory: Clear, Wheeze (negative), Non-Labored Respirations, Accessory Resp Muscle Use (negative) and Stridor (negative)
GI: Soft, Non Distended, Non Tender and Normal Bowel Sounds
Neurology: AO x 3 and Tremors (negative)
Skin: Warm, Dry, Cyanosis (negative) and Jaundice (negative)
Labs/Micro/Reports
Lab Data
08/29/24 04:10
08/29/24 04:10
Microbiology
08/22/24 11:40 Blood/Venous Blood Culture - Final
No Growth - Final Report
08/22/24 11:37 Blood/Venous Blood Culture - Final
No Growth - Final Report
08/26/24 12:50 Nose Nasal Screen MRSA (PCR) - Final
MRSA not detected - performed by PCR methodology.
08/26/24 04:57 Nose Nasal Screen MRSA (PCR) - Final
--- NOTE | 2024-08-29 08:52 | W.PN.HOSP.TC ---
Today's Communication/Plan
-
Wean oxygen as able
Bowel regimen
Wean steroids
Stop further antibiotics
Assessment / Plan
Assessment / Plan
Gen-AAOx3, NAD
HEENT-NC, AT, anicteric, clear oral mm
Neck-supple
CV-reg, no M, +S1/S2
Lungs-clear B/L
Abd-soft, NT, ND
Ext-no edema
Musculoskeletal-no cyanosis, clubbing
Skin-warm and dry
Neuro-grossly non-focal
Psych-calm, cooperative
Acute on chronic hypoxic/hypercapnic respiratory failure -due to COVID-19 pneumonia, superimposed bacterial pneumonia, lung mass, COPD exacerbation.
Still on high flow nasal cannula, wean down as able.
Last chest x-ray from 08/25 showed slight improvement in airspace opacity within the right upper lung, slight interval increase in parenchymal opacity in the right lower lung and medial left lower lung.
COVID-19 pneumonia
� Completed remdesivir
� NIV as needed, can place on NIV for assistance although very anxious
Presumed superimposed bacterial pneumonia, community-acquired -received 7 days of ceftriaxone and doxycycline. Discontinue further antibiotics. Sputum culture shows over contamination of oropharyngeal elda.
Sepsis � Secondary to pneumonia, COVID-19 infection. Blood cultures negative. Sepsis resolved.
Acute COPD exacerbation -due to COVID-19 pneumonia, bacterial pneumonia. Continue inhalers, steroids. Would lower dose of steroids if okay with pulmonary.
Mass in the right upper lobe, mass in the right apex -concerning for primary lung cancer.
Right lower lobe consolidation, possible central mass
� Unfortunately high risk for bronchoscopy at this time
� May need follow-up once acute event resolves
Hyperkalemia -5.3 today, give a dose of Lokelma.
Hyponatremia -134.
Elevated troponin
� Most likely acute nonischemic myocardial injury secondary to sepsis, respiratory failure
� No chest pain
� Echo with normal EF, dilated RV�I suspect secondary to chronic respiratory issues; PE negative
DM2 with hyperglycemia -hyperglycemia worsened by steroid administration. Glucose 229 this morning. Plan to lower dose of systemic steroids.
� Hold metformin
� Sliding scale
� Hemoglobin A1c 6.4
Constipation -MiraLAX daily instead of as needed ordered.
DVT prophylaxis
� Lovenox
DNR
Dispo -PT is recommending SNF when medically stable for discharge.
Anticipated Discharge: > 48 hours
Subjective/Interval History
-
Date of Service: August 29, 2024
Patient seen and examined. Complaining of constipation.
Objective Data
-
Labs:
Laboratory Results
08/29/24
04:10
WBC 16.0 H
Hgb 13.8
Hct 44.4
Plt Count 231
Sodium 134 L
Potassium 5.3 H
Chloride 91 L
Carbon Dioxide 38 H
BUN 34 H
Creatinine 0.7
Glucose 229 H
Calcium 8.6
Total Bilirubin 0.5
AST 16 L
ALT 19
Alkaline Phosphatase 52
Vital Signs:
Vital Signs
Temp Pulse Resp BP Pulse Ox
98.0 F 91 18 117/99 96
08/29/24 03:31 08/29/24 08:12 08/29/24 08:12 08/29/24 08:01 08/29/24 08:12
I&O
08/28/24 08/29/24 08/30/24
06:59 06:59 06:59
Intake Total 720 / 720 480 / 480
Output Total 1125 / 1125 1825 / 1825
Balance -405 / -405 -1345 / -1345
Review of Systems
-
History Source: Patient
All other systems: Reviewed and negative
[2024-08-29] MEDS: DELTASONE 50 MG PO (11:32)
[2024-08-29] MEDS: LOKELMA 10 GRAM PO (11:32)
[2024-08-29 11:40] LABS: Glucose - Point of Care 181 mg/dl (70-99)
--- NOTE | 2024-08-29 15:15 | CM ---
Chart reviewed
Weaning Oxygen and steroids
PT/OT - recs - SNF
Called pts daughter - LM on requesting return call to discuss SNF options
Plan - anticipate SNF when medically ready
[2024-08-29 16:50] LABS: Glucose - Point of Care 305 mg/dl (70-99)
[2024-08-29] MEDS: NOVOLOG FLEXPEN-MODERATE RESISTANCE 7 UNITS SC (17:31)
--- NOTE | 2024-08-29 19:40 | PTCARENOTE ---
Weaned to 8L Midflow today. Appetite improving. Still no bowel movement- relayed to provider. Adequate urine output. OOB in chair all day. Using IS flutter devices appropriately. Harsh moist occasional prod cough. Used [place] spray x3 this
shift.
[2024-08-29] MEDS: LOVENOX 40 MG SC (21:51)
[2024-08-29] MEDS: MORPHINE SULFATE 2 MG IV (21:53)
[2024-08-29] MEDS: MELATONIN 5 MG PO (21:53)
[2024-08-29 22:11] LABS: Glucose - Point of Care 231 mg/dl (70-99)
[2024-08-30] VITALS (13 sets, daily range): BP systolic 93–145; BP diastolic 53–84; PULSE 2–79
[2024-08-30] MEDS: XOPENEX 0.63 MG INHALANT SOLUTION INH (02:38)
[2024-08-30 05:23] LABS: Blood Urea Nitrogen 43 mg/dl (9-20); Calcium 8.6 mg/dl (8.4-10.2); Chloride 91 mmol/L (98-107); Estimated Creatinine Clearance 72 ml/min; Glucose 170 mg/dl (70-99); Potassium 4.3 mmol/L (3.5-5.1); Sodium 134 mmol/L (135-145); eGFR > 60.00
[2024-08-30 05:32] LABS: Carbon Dioxide 36 mmol/L (22-30)
--- NOTE | 2024-08-30 06:00 | PTCARENOTE ---
Pt 95% 8L MFNC at start of shift. While asleep pt desatted to 84% on the 8L, this RN increased MF to 15L. Pt later desatted again to 86% on 15 L. Notified RT Erin via TT. Pt agreeable to wearing Bipap tonight, which he has tolerated well for the
past three hours. Pt resting in bed with call middleton in reach.
[2024-08-30] MEDS: SODIUM CHLORIDE 3% FOR INHALATION 1 VIAL INH (07:53)
[2024-08-30] MEDS: DUONEB 3 ML INH ×4 (07:53→19:15)
[2024-08-30] MEDS: PULMICORT 0.5 MG INH ×2 (07:53→19:15)
[2024-08-30 08:09] LABS: Glucose - Point of Care 154 mg/dl (70-99)
--- NOTE | 2024-08-30 09:16 | W.PN.PUL3 ---
Today's Communication / Plan
-
Still remains on 8L w/ slow progress, wean as able to baseline use
Encouraged OOB/PT, IS
Prednisone taper
Culture negative, observe off abx
May consider azithro MWF if not clinically improving
Assessment
-
88-year-old male with a past medical history of COPD, restrictive lung disease, chronic rhinitis, former tobacco use, DM2 and history of chronic hypoxic respiratory failure requiring 3 L/min with activity who presents with shortness of breath.
Patient tested positive at home for COVID-19 on this past Thursday (08/19/2024) and was short of breath so called 911. Found to be saturating 70% on room air and placed onto CPAP by EMS and also given a DuoNeb treatment and then brought here to the
ER. Patient also was reportedly cyanotic according to EMS. Upon arrival to the ER he was placed onto BiPAP. In the ER he was febrile to 102.1 �F, pulse rate 135, breathing 42 breaths minute, BP 139/83 and saturating 80% on CPAP. After patient
transitioned to BiPAP his saturations improved to 90%. Patient eventually transitioned to high flow nasal cannula. Initial labs showed leukocytosis of 21, Hb 14.4, serum bicarbonate level 39, troponin 0.143, and COVID antigen was positive. Flu
A/B swab was negative and blood cultures were collected. CXR showed opacification in the right upper lobe, right lower lobe and left lower lobe. He was given cefepime in the ER, vancomycin, Decadron 10 mg, and DuoNebs. Patient being admitted to
the IMU and pulmonary service now consulted for additional management/recommendations.
Impression:
#Acute respiratory failure with hypoxia due to COVID-19 pneumonia with multifocal GGO seen on initial CXR
#Acute respiratory failure with hypercapnia � stable per ABG on AM of 08/28/2024
#Leukocytosis
#Metabolic alkalosis due to chronic hypercapnic respiratory failure
#Elevated troponin likely due to demand ischemia with type II DC - peaked at 0.632 on 08/22/2024
#Dilated RV with reduced systolic function � unclear etiology, however given no regional WMA seen this is unlikely due to ACS, need to consider an acute PE although PASP is WNL at 27 mmHg (ruled out via CTA chest on 08/23/2024)
Chronic conditions CORPORATE ASSOCIATE:
History of moderate restrictive lung disease
History of severe COPD/emphysema
DM type II
Former tobacco smoker
Chronic rhinitis
Chronic hypoxic respiratory failure on 3 L/min with activity
Plan:
Weaned off high flow nasal cannula and titrate FiO2, now on 8L from 12L
Continue weaning as able
Baseline use of 3L NC
Resumed on home COPD regiment
Spiriva + albuterol MDI 2 puffs QID changed to DuoNebs QID
Continue budesonide
Transition to PO prednisone, taper at discharge
Initially started on abx
Procalcitonin elevated at 1.22 --> 0.09 on 08/28/2024
Blood Cx X2 (collected 08/22/2024) neg, sputum culture (collected on 08/23/2024 - shows NGTD)
Agree with stopping abx, observe off
He has a history of chronic hypercapnic respiratory failure with prior baseline pCO2 around 65
ABG from 08/23/2024 showed acute on chronic hypercapnia with pH 7.28, pCO2 71
Pt has refused BiPAP and is not interested despite risk of worsening hypercapnia with CO2-narcosis
pH and pCO2 still stable on repeat ABG AM of 08/28/2024
Troponin peaked at 0.632 on 08/22/2024 � no longer need to continue trending
Transthoracic echo on 08/23/2024 showed dilated RV with reduced systolic function, and he has continued shortness of breath.
CTA chest negative for acute PE. Heparin drip started empirically on 08/23, and this can be stopped.
RUL mass
His CTA chest from 08/23/2024 showed a right apical 2.3 cm nodule with a right upper lobe anterior mass, suspicious for malignancy. Also has a right lower lobe pleural effusion.
Would recommend tissue biopsy once he clinically improves with a bronchoscopy, can be arranged as OP
Right sided chest ultrasound performed on 08/24/2024 and there is minimal right sided fluid, hence not safe for thoracentesis at this time
Pulmonary service will continue to follow along.
Pulmonary office follow-up will be arranged after discharge as last visit was on 06/13/[address] Friedman.
Family Discussions
GOC Discussion on 08/25/2024: Daughter, Courtney, was updated over the phone by Dr. Cunningham. She believes that she gave him covid-19. She says that he has been living for many years with COPD and is surprised that he has even made it this long in
life. She understands that he is critically ill, and agrees with making him comfortable but she does not want to transition to comfort care at this point unless he were to deteriorate further. I answered all her questions, and she verbalized
understanding of the plan above.
Diagnostic Data
CTA Chest 08/23/2024: No findings to suggest central pulmonary embolism. Large irregular mass in the right upper lobe extending to the right hilum, likely smaller mass in the right apex, both must be deemed suspicious for malignancy. Right lower lobe
consolidation, cannot exclude central mass such as malignancy with postobstructive atelectasis. Some lingular opacity most likely representing subsegmental atelectasis. Small central lesion unlikely but cannot be entirely excluded. Right hilar and
mediastinal lymphadenopathy. When able to be obtained due to, PET scan may be helpful for more complete evaluation.
CXR 08/25/24- Slight improvement in airspace opacity within the right upper lung, suggesting improvement in atelectasis and/or pneumonia. Slight interval increase in parenchymal opacity in the right lower lung and the medial left lower lung, with
main differential considerations of atelectasis and/or pneumonia.
CXR 08/22/2024: 1. Severe asymmetric opacity in the right upper lobe. Moderate right lower lobe and mild left lower lobe opacities. Diagnostic possibilities are (1) SEVERE PNEUMONIA (most likely given the asymmetric distribution) or (2) much less
likely alveolar pulmonary edema.
2. Mild to moderate scarring in the lower lobes. 3. Mild bilateral lung hyperinflation.
TTE 08/23/2024: Normal left ventricular size, wall thickness and systolic function. Dilated right ventricle with reduced systolic function with preserved function at the base. No significant valvular disease.
Compared to previous echo 06/07/2019, the right ventricle was normal on the prior study.
-----
Total time spent today was 52 minutes for this encounter. Time includes reviewing laboratory test/imaging results, reviewing pertinent medical records, obtaining and reviewing medical history, performing an appropriate exam, ordering medications,
tests and procedures. Time also includes documentation of this encounter, coordinating patient care and communicating with other healthcare professionals. Total time does not include separately billed tests performed on this date of service.
Subjective Data
-
Date of Service:
Date of Service: August 30, 2024
Chief Complaint: Pulmonary Follow Up
Subjective:
Doing well today, remains on 8L
SOB with minimal activity
Sitting in chair, feels ok at rest
Objective Data
Data Reviewed
Vital Signs / I&O / Oxygen:
Vital Signs
Temp Pulse Resp BP Pulse Ox
97.7 F 90 20 93/63 96
08/30/24 07:05 08/30/24 08:05 08/30/24 08:05 08/30/24 06:00 08/30/24 08:05
Intake and Output
08/29/24 08/30/24 08/31/24
06:59 06:59 06:59
Intake Total 480 / 480 600 / 600
Output Total 1825 / 1825 500 / 1100 800 / 800
Balance -1345 / -1345 100 / -500 -800 / -800
SaO2 96
Nasal Cannula flow liters per 40
minute
Physical Exam
General: Respiratory Distress (negative), Comfortable, Chills (negative) and Sweats (negative)
HEENT: Normocephalic, Anicteric and Moist Mucous Membranes
Cardiovascular: S1-S2, Regular Rhythm, Rub (negative), Peripheral Edema (negative) and Other (Tachycardic)
Respiratory: Wheeze (negative), Crackles (minimal), Non-Labored Respirations, Accessory Resp Muscle Use (negative) and Stridor (negative)
GI: Soft, Non Distended, Non Tender and Normal Bowel Sounds
Neurology: AO x 3 and Tremors (negative)
Skin: Warm, Dry, Cyanosis (negative) and Jaundice (negative)
Labs/Micro/Reports
Lab Data
08/29/24 04:10
08/30/24 04:13
Microbiology
08/22/24 11:40 Blood/Venous Blood Culture - Final
No Growth - Final Report
08/22/24 11:37 Blood/Venous Blood Culture - Final
No Growth - Final Report
[2024-08-30] MEDS: MUCINEX 1200 MG PO ×2 (09:44→22:13)
[2024-08-30] MEDS: NOVOLOG FLEXPEN-MODERATE RESISTANCE 1 UNITS SC (09:44)
[2024-08-30] MEDS: ASPIR LOW (ENTERIC COATED) 81 MG PO (09:45)
[2024-08-30] MEDS: SENOKOT-S 1 TABLET PO ×2 (09:45→22:13)
[2024-08-30] MEDS: MIRALAX 17 GRAMS PO (09:45)
[2024-08-30] MEDS: DELTASONE 50 MG PO (09:45)
[2024-08-30] MEDS: MORPHINE SULFATE 2 MG IV ×2 (09:46→22:12)
--- NOTE | 2024-08-30 11:05 | W.PN.HOSP.TC ---
Today's Communication/Plan
-
Wean down oxygen as able
Bowel regimen
Incentive spirometry
Acapella
Assessment / Plan
Assessment / Plan
Gen-AAOx3, NAD
HEENT-NC, AT, anicteric, clear oral mm
Neck-supple
CV-reg, no M, +S1/S2
Lungs-bilateral expiratory wheezing
Abd-soft, NT, ND
Ext-no edema
Musculoskeletal-no cyanosis, clubbing
Skin-warm and dry
Neuro-grossly non-focal
Psych-calm, cooperative
Acute on chronic hypoxic/hypercapnic respiratory failure -due to COVID-19 pneumonia, superimposed bacterial pneumonia, lung mass, COPD exacerbation.
Oxygenation slowly improving, now on 12 L nasal cannula. Baseline uses 3 L of oxygen at home continuously for COPD.
Last chest x-ray from 08/25 showed slight improvement in airspace opacity within the right upper lung, slight interval increase in parenchymal opacity in the right lower lung and medial left lower lung.
COVID-19 pneumonia -symptoms started August 19. Now off isolation.
� Completed remdesivir
� NIV as needed, can place on NIV for assistance although very anxious
Presumed superimposed bacterial pneumonia, community-acquired -completed 7 days of antibiotics. Sputum culture shows over contamination of oropharyngeal elda.
Sepsis � Secondary to pneumonia, COVID-19 infection. Blood cultures negative. Sepsis resolved.
Acute COPD exacerbation -due to COVID-19 pneumonia, bacterial pneumonia. Continue inhalers, steroids. Currently on prednisone 50 mg daily.
Mass in the right upper lobe, mass in the right apex -concerning for primary lung cancer.
Right lower lobe consolidation, possible central mass
� Unfortunately high risk for bronchoscopy at this time
� May need follow-up once acute event resolves
Hyperkalemia - resolved.
Hyponatremia -134.
Elevated troponin
� Most likely acute nonischemic myocardial injury secondary to sepsis, respiratory failure
� No chest pain
� Echo with normal EF, dilated RV�I suspect secondary to chronic respiratory issues; PE negative
DM2 with hyperglycemia -hyperglycemia worsened by steroid administration. Glucose 229 this morning. Plan to lower dose of systemic steroids.
� Hold metformin
� Sliding scale
� Hemoglobin A1c 6.4
Constipation -MiraLAX daily instead of as needed ordered, Senokot-S twice daily, give a dose of oral Dulcolax.
DVT prophylaxis
� Lovenox
DNR
Dispo -PT is recommending SNF when medically stable for discharge.
Anticipated Discharge: > 48 hours
Subjective/Interval History
-
Date of Service: August 30, 2024
Patient seen and examined. Feels weak, dyspneic with minimal exertion.
Objective Data
-
Labs:
Laboratory Results
08/30/24
04:13
Sodium 134 L
Potassium 4.3
Chloride 91 L
Carbon Dioxide 36 H
BUN 43 H
Creatinine 0.7
Glucose 170 H
Calcium 8.6
Vital Signs:
Vital Signs
Temp Pulse Resp BP Pulse Ox
97.7 F 109 26 124/73 87
08/30/24 07:05 08/30/24 10:05 08/30/24 10:05 08/30/24 10:05 08/30/24 10:05
I&O
08/29/24 08/30/24 08/31/24
06:59 06:59 06:59
Intake Total 480 / 480 600 / 600
Output Total 1825 / 1825 500 / 1100 800 / 800
Balance -1345 / -1345 100 / -500 -800 / -800
Review of Systems
-
History Source: Patient
All other systems: Reviewed and negative
[2024-08-30] MEDS: DULCOLAX 10 MG PO (11:39)
[2024-08-30 14:00] LABS: Glucose - Point of Care 345 mg/dl (70-99)
[2024-08-30] MEDS: NOVOLOG FLEXPEN-MODERATE RESISTANCE 7 UNITS SC (14:06)
--- NOTE | 2024-08-30 16:01 | PTCARENOTE ---
Rec'd pt this AM. Pt removed from covid isolation. OOB to chair with min assist. Remains on 8L MF. Very [place]. needs time to recover following ambulation but able to do so. Pt is anxious about condition and declining health. RN provided support. Pt
with good appetite. Still no BM, bowel reg in place. vital signs stable
[2024-08-30 16:28] LABS: Glucose - Point of Care 281 mg/dl (70-99)
[2024-08-30] MEDS: NOVOLOG FLEXPEN-MODERATE RESISTANCE 5 UNITS SC (16:46)
[2024-08-30 21:58] LABS: Glucose - Point of Care 160 mg/dl (70-99)
[2024-08-30] MEDS: LOVENOX 40 MG SC (22:12)
[2024-08-30] MEDS: MELATONIN 5 MG PO (22:13)
--- NOTE | 2024-08-30 22:34 | PTCARENOTE ---
Pt aaox3, sitting in chair. NSR on monitor with PACs and PVCs. 95% 8L MFNC. Pt c/o SOB and experience dyspnea while ambulating from the chair to the bed. PRN morphine given (see MAR). Pt is now resting in bed with call middleton in reach.
[2024-08-31] VITALS (14 sets, daily range): BP systolic 102–137; BP diastolic 53–89; PULSE 108; O2SAT 95
--- NOTE | 2024-08-31 02:26 | DOWNTIME ---
There was a [employer] Client [employer] Downtime on 08/31/2024 from 0100 to 08/31/2023 at 0205 . Downtime documentation of patient's care, including medication administrations, has been reconciled in the electronic record per guidelines. Refer to the
patient's paper chart under the miscellaneous tab to see printed paper medication records and downtime forms.
[2024-08-31 06:34] LABS: Blood Urea Nitrogen 56 mg/dl (9-20); Calcium 8.6 mg/dl (8.4-10.2); Carbon Dioxide 34 mmol/L (22-30); Chloride 94 mmol/L (98-107); Estimated Creatinine Clearance 84 ml/min; Glucose 142 mg/dl (70-99); Potassium 4.2 mmol/L (3.5-5.1); Sodium 134 mmol/L (135-145); eGFR > 60.00
[2024-08-31] MEDS: DUONEB 3 ML INH ×4 (07:20→19:35)
[2024-08-31] MEDS: PULMICORT 0.5 MG INH ×2 (07:20→19:35)
[2024-08-31 07:44] LABS: Glucose - Point of Care 143 mg/dl (70-99)
[2024-08-31] MEDS: NOVOLOG FLEXPEN-MODERATE RESISTANCE SC (07:50)
[2024-08-31] MEDS: ASPIR LOW (ENTERIC COATED) 81 MG PO (08:18)
[2024-08-31] MEDS: MUCINEX 1200 MG PO ×2 (08:18→20:36)
[2024-08-31] MEDS: SENOKOT-S 1 TABLET PO ×2 (08:18→20:36)
[2024-08-31] MEDS: MIRALAX 17 GRAMS PO (08:19)
[2024-08-31] MEDS: DELTASONE 50 MG PO (08:19)
--- NOTE | 2024-08-31 08:40 | W.PN.PUL3 ---
Today's Communication / Plan
-
Remains on 8L with slow progress weaning down
Still DE LA CRUZ with simple activities
Remains on prednisone taper
Given lack of progress, will add azithro low dose daily
Assessment
-
88-year-old male with a past medical history of COPD, restrictive lung disease, chronic rhinitis, former tobacco use, DM2 and history of chronic hypoxic respiratory failure requiring 3 L/min with activity who presents with shortness of breath.
Patient tested positive at home for COVID-19 on this past Thursday (08/19/2024) and was short of breath so called 911. Found to be saturating 70% on room air and placed onto CPAP by EMS and also given a DuoNeb treatment and then brought here to the
ER. Patient also was reportedly cyanotic according to EMS. Upon arrival to the ER he was placed onto BiPAP. In the ER he was febrile to 102.1 �F, pulse rate 135, breathing 42 breaths minute, BP 139/83 and saturating 80% on CPAP. After patient
transitioned to BiPAP his saturations improved to 90%. Patient eventually transitioned to high flow nasal cannula. Initial labs showed leukocytosis of 21, Hb 14.4, serum bicarbonate level 39, troponin 0.143, and COVID antigen was positive. Flu
A/B swab was negative and blood cultures were collected. CXR showed opacification in the right upper lobe, right lower lobe and left lower lobe. He was given cefepime in the ER, vancomycin, Decadron 10 mg, and DuoNebs. Patient being admitted to
the IMU and pulmonary service now consulted for additional management/recommendations.
Impression:
#Acute respiratory failure with hypoxia due to COVID-19 pneumonia with multifocal GGO seen on initial CXR
#Acute respiratory failure with hypercapnia � stable per ABG on AM of 08/28/2024
#Leukocytosis
#Metabolic alkalosis due to chronic hypercapnic respiratory failure
#Elevated troponin likely due to demand ischemia with type II [place] - peaked at 0.632 on 08/22/2024
#Dilated RV with reduced systolic function � unclear etiology, however given no regional WMA seen this is unlikely due to ACS, need to consider an acute PE although PASP is WNL at 27 mmHg (ruled out via CTA chest on 08/23/2024)
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
History of moderate restrictive lung disease
History of severe COPD/emphysema
DM type II
Former tobacco smoker
Chronic rhinitis
Chronic hypoxic respiratory failure on 3 L/min with activity
Plan:
Weaned off high flow nasal cannula and titrate FiO2, now on 8L from 12L
Continue weaning as able
Baseline use of 3L NC
Resumed on home COPD regiment
Spiriva + albuterol MDI 2 puffs QID changed to DuoNebs QID
Continue budesonide
Transition to PO prednisone, taper at discharge
Initially started on abx
Procalcitonin elevated at 1.22 --> 0.09 on 08/28/2024
Blood Cx X2 (collected 08/22/2024) neg, sputum culture (collected on 08/23/2024 - shows NGTD)
Agree with stopping abx, observe off
He has a history of chronic hypercapnic respiratory failure with prior baseline pCO2 around 65
ABG from 08/23/2024 showed acute on chronic hypercapnia with pH 7.28, pCO2 71
Pt has refused BiPAP and is not interested despite risk of worsening hypercapnia with CO2-narcosis
pH and pCO2 still stable on repeat ABG AM of 08/28/2024
Troponin peaked at 0.632 on 08/22/2024 � no longer need to continue trending
Transthoracic echo on 08/23/2024 showed dilated RV with reduced systolic function, and he has continued shortness of breath.
CTA chest negative for acute PE. Heparin drip started empirically on 08/23, and this can be stopped.
RUL mass
His CTA chest from 08/23/2024 showed a right apical 2.3 cm nodule with a right upper lobe anterior mass, suspicious for malignancy. Also has a right lower lobe pleural effusion.
Would recommend tissue biopsy once he clinically improves with a bronchoscopy, can be arranged as OP
Right sided chest ultrasound performed on 08/24/2024 and there is minimal right sided fluid, hence not safe for thoracentesis at this time
Pulmonary service will continue to follow along.
Pulmonary office follow-up will be arranged after discharge as last visit was on 06/13/[address] Friedman.
Family Discussions
GOC Discussion on 08/25/2024: Daughter, Courtney, was updated over the phone by Dr. Cunningham. She believes that she gave him covid-19. She says that he has been living for many years with COPD and is surprised that he has even made it this long in
life. She understands that he is critically ill, and agrees with making him comfortable but she does not want to transition to comfort care at this point unless he were to deteriorate further. I answered all her questions, and she verbalized
understanding of the plan above.
Diagnostic Data
CTA Chest 08/23/2024: No findings to suggest central pulmonary embolism. Large irregular mass in the right upper lobe extending to the right hilum, likely smaller mass in the right apex, both must be deemed suspicious for malignancy. Right lower lobe
consolidation, cannot exclude central mass such as malignancy with postobstructive atelectasis. Some lingular opacity most likely representing subsegmental atelectasis. Small central lesion unlikely but cannot be entirely excluded. Right hilar and
mediastinal lymphadenopathy. When able to be obtained due to, PET scan may be helpful for more complete evaluation.
CXR 08/25/24- Slight improvement in airspace opacity within the right upper lung, suggesting improvement in atelectasis and/or pneumonia. Slight interval increase in parenchymal opacity in the right lower lung and the medial left lower lung, with
main differential considerations of atelectasis and/or pneumonia.
CXR 08/22/2024: 1. Severe asymmetric opacity in the right upper lobe. Moderate right lower lobe and mild left lower lobe opacities. Diagnostic possibilities are (1) SEVERE PNEUMONIA (most likely given the asymmetric distribution) or (2) much less
likely alveolar pulmonary edema.
2. Mild to moderate scarring in the lower lobes. 3. Mild bilateral lung hyperinflation.
TTE 08/23/2024: Normal left ventricular size, wall thickness and systolic function. Dilated right ventricle with reduced systolic function with preserved function at the base. No significant valvular disease.
Compared to previous echo 06/07/2019, the right ventricle was normal on the prior study.
-----
Total time spent today was 45 minutes for this encounter. Time includes reviewing laboratory test/imaging results, reviewing pertinent medical records, obtaining and reviewing medical history, performing an appropriate exam, ordering medications,
tests and procedures. Time also includes documentation of this encounter, coordinating patient care and communicating with other healthcare professionals. Total time does not include separately billed tests performed on this date of service.
Subjective Data
-
Date of Service:
Date of Service: August 31, 2024
Chief Complaint: Pulmonary Follow Up
Subjective:
Remains on 7-8L NC, still DE LA CRUZ with minimal activity
No other new complaints, sitting in chair
In good spirits
Objective Data
Data Reviewed
Vital Signs / I&O / Oxygen:
Vital Signs
Temp Pulse Resp BP Pulse Ox
97 F 100 18 124/71 97
08/31/24 07:15 08/31/24 07:22 08/31/24 07:22 08/31/24 06:00 08/31/24 07:22
Intake and Output
08/30/24 08/31/24 09/01/24
06:59 06:59 06:59
Intake Total 600 / 600 480 / 480 120 / 120
Output Total 500 / 1100 1500 / 1500 175 / 175
Balance 100 / -500 -1020 / -1020 -55 / -55
SaO2 97
Nasal Cannula flow liters per 6
minute
Physical Exam
General: Respiratory Distress (negative), Comfortable, Chills (negative) and Sweats (negative)
HEENT: Normocephalic, Anicteric and Moist Mucous Membranes
Cardiovascular: S1-S2, Regular Rhythm, Rub (negative), Peripheral Edema (negative) and Other (Tachycardic)
Respiratory: Wheeze (negative), Crackles (minimal), Non-Labored Respirations, Accessory Resp Muscle Use (negative) and Stridor (negative)
GI: Soft, Non Distended, Non Tender and Normal Bowel Sounds
Neurology: AO x 3 and Tremors (negative)
Skin: Warm, Dry, Cyanosis (negative) and Jaundice (negative)
Labs/Micro/Reports
Lab Data
08/29/24 04:10
08/31/24 05:40
--- NOTE | 2024-08-31 11:20 | W.PN.HOSP.TC ---
Today's Communication/Plan
-
Chest vest therapy
Assessment / Plan
Assessment / Plan
Gen-AAOx3, NAD
HEENT-NC, AT, anicteric, clear oral mm
Neck-supple
CV-reg, no M, +S1/S2
Lungs-bilateral expiratory wheezing
Abd-soft, NT, ND
Ext-no edema
Musculoskeletal-no cyanosis, clubbing
Skin-warm and dry
Neuro-grossly non-focal
Psych-calm, cooperative
Acute on chronic hypoxic/hypercapnic respiratory failure -due to COVID-19 pneumonia, superimposed bacterial pneumonia, lung mass, COPD exacerbation.
Oxygenation slowly improving, now on 6 L nasal cannula. Baseline uses 3 L of oxygen at home continuously for COPD.
Last chest x-ray from 08/25 showed slight improvement in airspace opacity within the right upper lung, slight interval increase in parenchymal opacity in the right lower lung and medial left lower lung.
Add chest vest therapy to help mobilize secretions. Discussed with patient.
COVID-19 pneumonia -symptoms started August 19. Now off isolation.
� Completed remdesivir
� NIV as needed, can place on NIV for assistance although very anxious
Presumed superimposed bacterial pneumonia, community-acquired -completed 7 days of antibiotics. Sputum culture shows over contamination of oropharyngeal elda.
Sepsis � Secondary to pneumonia, COVID-19 infection. Blood cultures negative. Sepsis resolved.
Acute COPD exacerbation -due to COVID-19 pneumonia, bacterial pneumonia. Continue inhalers, steroids. Currently on prednisone 50 mg daily. Taper down steroids slowly.
Mass in the right upper lobe, mass in the right apex -concerning for primary lung cancer.
Right lower lobe consolidation, possible central mass
� Unfortunately high risk for bronchoscopy at this time
� May need follow-up once acute event resolves
Hyperkalemia - resolved.
Hyponatremia -134.
Elevated troponin
� Most likely acute nonischemic myocardial injury secondary to sepsis, respiratory failure
� No chest pain
� Echo with normal EF, dilated RV�I suspect secondary to chronic respiratory issues; PE negative
DM2 with hyperglycemia -hyperglycemia worsened by steroid administration. Glucose 142 this morning.
� Hold metformin
� Sliding scale
� Hemoglobin A1c 6.4
Constipation -MiraLAX daily instead of as needed ordered, Senokot-S twice daily, give a dose of oral Dulcolax.
DVT prophylaxis
� Lovenox
DNR
Dispo -PT is recommending SNF when medically stable for discharge. Patient undecided regarding SNF. Anticipate he will be medically stable for discharge tomorrow if he continues to improve. Case management aware.
Anticipated Discharge: Within 24 hours
Subjective/Interval History
-
Date of Service: August 31, 2024
Patient seen and examined. Overall feeling better. Complaining of cough with difficulty expectorating.
Objective Data
-
Labs:
Laboratory Results
08/31/24
05:40
Sodium 134 L
Potassium 4.2
Chloride 94 L
Carbon Dioxide 34 H
BUN 56 H
Creatinine 0.6 L
Glucose 142 H
Calcium 8.6
Vital Signs:
Vital Signs
Temp Pulse Resp BP Pulse Ox
97 F 100 18 124/71 92
08/31/24 07:15 08/31/24 07:22 08/31/24 07:22 08/31/24 06:00 08/31/24 08:33
I&O
08/30/24 08/31/24 09/01/24
06:59 06:59 06:59
Intake Total 600 / 600 480 / 480 330 / 330
Output Total 500 / 1100 1500 / 1500 375 / 375
Balance 100 / -500 -1020 / -1020 -45 / -45
Review of Systems
-
History Source: Patient
All other systems: Reviewed and negative
[2024-08-31 12:23] LABS: Glucose - Point of Care 245 mg/dl (70-99)
[2024-08-31] MEDS: NOVOLOG FLEXPEN-MODERATE RESISTANCE 3 UNITS SC (12:27)
[2024-08-31] MEDS: ZITHROMAX 250 MG PO (13:29)
--- NOTE | 2024-08-31 14:43 | CM ---
CM reviewed pt with Dr Shay- [facility] tomorrow
Bedside meeting with pt to review dispo planning
SNF recs and pt declining
Call to dtr/Courtney with his permission
She is in agreement for home- she notes family available to provide care at home
Referral to [facility] per her request
PCP- Dr. Emma Fried through [facility]- pt has not been seen by local PCP in a few years, all care through the [facility]
Pt is on home O2 provided through [facility] [phone]
Pt's home set up only goes to 5L, will need new set up if O2 needs increased on dc
Provider will accept updates and scripts through the [facility] only, will not accept new orders from
Call with [facility] [phone] Fried's office to discuss possibility of new concentrator at home
Discussion with Dr Shay- will likely dc with 5L or less to home
Likely will not need a new set up
Discharge Disposition- home with [facility], watch for higher O2 needs
--- NOTE | 2024-08-31 15:33 | VNURNOTE ---
Home Health Liaison met with patient at bedside to discuss [facility] nurse/therapy, visits, schedule and homebound status. Patient is agreeable and understands that visits at home will be 2-3 x per week to assess and teach medical management. [facility]
brochure provided with contact information. Patient is aware that [facility] will contact them for start of care in 1-2 days after discharge from . Patient stated he has a neb machine and home 02 - baseline is 3L. [facility] referral completed in [facility].
[2024-08-31 16:10] LABS: Glucose - Point of Care 301 mg/dl (70-99)
[2024-08-31] MEDS: NOVOLOG FLEXPEN-MODERATE RESISTANCE 7 UNITS SC (16:26)
--- NOTE | 2024-08-31 19:20 | PTCARENOTE ---
Pt continues to be DE LA CRUZ but able to be weaned to 4L NC. PT OOB for the entire day in the chair. Worked w/ PT in the room. CM and Dr Neil discussed discharge planning w/ patient, home vs. rehab. Pt will talk w/ his daughter later today.
[2024-08-31] MEDS: LOVENOX 40 MG SC (20:37)
[2024-08-31 21:47] LABS: Glucose - Point of Care 204 mg/dl (70-99)
[2024-08-31] MEDS: MORPHINE SULFATE 2 MG IV (22:06)
[2024-08-31] MEDS: MELATONIN 5 MG PO (22:06)
[2024-09-01] VITALS (11 sets, daily range): BP systolic 92–141; BP diastolic 51–86
--- NOTE | 2024-09-01 06:00 | PTCARENOTE ---
No acute events overnight. PRN morphine given for SOB. oxygen turned up from 4 to 6 liters while asleep.
[2024-09-01] MEDS: PULMICORT 0.5 MG INH (07:34)
[2024-09-01 07:59] LABS: Glucose - Point of Care 117 mg/dl (70-99)
[2024-09-01] MEDS: NOVOLOG FLEXPEN-MODERATE RESISTANCE SC (08:09)
[2024-09-01] MEDS: ASPIR LOW (ENTERIC COATED) 81 MG PO (08:35)
[2024-09-01] MEDS: ZITHROMAX 250 MG PO (08:35)
[2024-09-01] MEDS: SENOKOT-S 1 TABLET PO ×2 (08:35→20:22)
[2024-09-01] MEDS: MUCINEX 1200 MG PO ×2 (08:35→20:23)
[2024-09-01] MEDS: DELTASONE 50 MG PO (08:35)
[2024-09-01] MEDS: MIRALAX 17 GRAMS PO (08:35)
[2024-09-01] MEDS: OCEAN, SALINE MIST 2 SPRAYS NASAL (08:36)
--- NOTE | 2024-09-01 09:03 | W.PN.PUL3 ---
Today's Communication / Plan
-
Doing well, O2 lowered to 6L, continue weaning
Has refused BIPAP in past
Can likely eval for discharge when around 4L
Continue prednisone taper/IS/PT
Slow progress
Encouraged ambulation today
Assessment
-
88-year-old male with a past medical history of COPD, restrictive lung disease, chronic rhinitis, former tobacco use, DM2 and history of chronic hypoxic respiratory failure requiring 3 L/min with activity who presents with shortness of breath.
Patient tested positive at home for COVID-19 on this past Thursday (08/19/2024) and was short of breath so called 911. Found to be saturating 70% on room air and placed onto CPAP by EMS and also given a DuoNeb treatment and then brought here to the
ER. Patient also was reportedly cyanotic according to EMS. Upon arrival to the ER he was placed onto BiPAP. In the ER he was febrile to 102.1 �F, pulse rate 135, breathing 42 breaths minute, BP 139/83 and saturating 80% on CPAP. After patient
transitioned to BiPAP his saturations improved to 90%. Patient eventually transitioned to high flow nasal cannula. Initial labs showed leukocytosis of 21, Hb 14.4, serum bicarbonate level 39, troponin 0.143, and COVID antigen was positive. Flu
A/B swab was negative and blood cultures were collected. CXR showed opacification in the right upper lobe, right lower lobe and left lower lobe. He was given cefepime in the ER, vancomycin, Decadron 10 mg, and DuoNebs. Patient being admitted to
the IMU and pulmonary service now consulted for additional management/recommendations.
Impression:
#Acute respiratory failure with hypoxia due to COVID-19 pneumonia with multifocal GGO seen on initial CXR
#Acute respiratory failure with hypercapnia � stable per ABG on AM of 08/28/2024
#Leukocytosis
#Metabolic alkalosis due to chronic hypercapnic respiratory failure
#Elevated troponin likely due to demand ischemia with type II [place] - peaked at 0.632 on 08/22/2024
#Dilated RV with reduced systolic function � unclear etiology, however given no regional WMA seen this is unlikely due to ACS, need to consider an acute PE although PASP is WNL at 27 mmHg (ruled out via CTA chest on 08/23/2024)
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
History of moderate restrictive lung disease
History of severe COPD/emphysema
DM type II
Former tobacco smoker
Chronic rhinitis
Chronic hypoxic respiratory failure on 3 L/min with activity
Plan:
Weaned off high flow nasal cannula and titrate FiO2, now on 6L from 12L
Continue weaning as able
Baseline use of 3L NC
Resumed on home COPD regiment
Spiriva + albuterol MDI 2 puffs QID changed to DuoNebs QID
Continue budesonide
Transition to PO prednisone, taper at discharge
Initially started on abx
Procalcitonin elevated at 1.22 --> 0.09 on 08/28/2024
Blood Cx X2 (collected 08/22/2024) neg, sputum culture (collected on 08/23/2024 - shows NGTD)
Agree with stopping abx, observe off
He has a history of chronic hypercapnic respiratory failure with prior baseline pCO2 around 65
ABG from 08/23/2024 showed acute on chronic hypercapnia with pH 7.28, pCO2 71
Pt has refused BiPAP and is not interested despite risk of worsening hypercapnia with CO2-narcosis
pH and pCO2 still stable on repeat ABG AM of 08/28/2024
Troponin peaked at 0.632 on 08/22/2024 � no longer need to continue trending
Transthoracic echo on 08/23/2024 showed dilated RV with reduced systolic function, and he has continued shortness of breath.
CTA chest negative for acute PE. Heparin drip started empirically on 08/23, and this can be stopped.
RUL mass
His CTA chest from 08/23/2024 showed a right apical 2.3 cm nodule with a right upper lobe anterior mass, suspicious for malignancy. Also has a right lower lobe pleural effusion.
Would recommend tissue biopsy once he clinically improves with a bronchoscopy, can be arranged as OP
Right sided chest ultrasound performed on 08/24/2024 and there is minimal right sided fluid, hence not safe for thoracentesis at this time
Pulmonary service will continue to follow along.
Pulmonary office follow-up will be arranged after discharge as last visit was on 06/13/[address] Friedman.
Family Discussions
GOC Discussion on 08/25/2024: Daughter, Courtney, was updated over the phone by Dr. Cunningham. She believes that she gave him covid-19. She says that he has been living for many years with COPD and is surprised that he has even made it this long in
life. She understands that he is critically ill, and agrees with making him comfortable but she does not want to transition to comfort care at this point unless he were to deteriorate further. I answered all her questions, and she verbalized
understanding of the plan above.
Diagnostic Data
CTA Chest 08/23/2024: No findings to suggest central pulmonary embolism. Large irregular mass in the right upper lobe extending to the right hilum, likely smaller mass in the right apex, both must be deemed suspicious for malignancy. Right lower lobe
consolidation, cannot exclude central mass such as malignancy with postobstructive atelectasis. Some lingular opacity most likely representing subsegmental atelectasis. Small central lesion unlikely but cannot be entirely excluded. Right hilar and
mediastinal lymphadenopathy. When able to be obtained due to, PET scan may be helpful for more complete evaluation.
CXR 08/25/24- Slight improvement in airspace opacity within the right upper lung, suggesting improvement in atelectasis and/or pneumonia. Slight interval increase in parenchymal opacity in the right lower lung and the medial left lower lung, with
main differential considerations of atelectasis and/or pneumonia.
CXR 08/22/2024: 1. Severe asymmetric opacity in the right upper lobe. Moderate right lower lobe and mild left lower lobe opacities. Diagnostic possibilities are (1) SEVERE PNEUMONIA (most likely given the asymmetric distribution) or (2) much less
likely alveolar pulmonary edema.
2. Mild to moderate scarring in the lower lobes. 3. Mild bilateral lung hyperinflation.
TTE 08/23/2024: Normal left ventricular size, wall thickness and systolic function. Dilated right ventricle with reduced systolic function with preserved function at the base. No significant valvular disease.
Compared to previous echo 06/07/2019, the right ventricle was normal on the prior study.
-----
Total time spent today was 45 minutes for this encounter. Time includes reviewing laboratory test/imaging results, reviewing pertinent medical records, obtaining and reviewing medical history, performing an appropriate exam, ordering medications,
tests and procedures. Time also includes documentation of this encounter, coordinating patient care and communicating with other healthcare professionals. Total time does not include separately billed tests performed on this date of service.
Subjective Data
-
Date of Service:
Date of Service: September 01, 2024
Chief Complaint: Pulmonary Follow Up
Subjective:
Better today, able to wean to 6L
Sitting in chair, feels tired
Objective Data
Data Reviewed
Vital Signs / I&O / Oxygen:
Vital Signs
Temp Pulse Resp BP Pulse Ox
97.6 F 104 19 116/74 95
09/01/24 03:00 09/01/24 08:39 09/01/24 08:39 09/01/24 08:39 09/01/24 08:00
Intake and Output
08/31/24 09/01/24 09/02/24
06:59 06:59 06:59
Intake Total 480 / 480 810 / 810
Output Total 1500 / 1500 675 / 675
Balance -1020 / -1020 135 / 135
SaO2 95
Nasal Cannula flow liters per 6
minute
Physical Exam
General: Respiratory Distress (negative), Comfortable, Chills (negative) and Sweats (negative)
HEENT: Normocephalic, Anicteric and Moist Mucous Membranes
Cardiovascular: S1-S2, Regular Rhythm, Rub (negative), Peripheral Edema (negative) and Other (Tachycardic)
Respiratory: Wheeze (negative), Crackles (minimal), Non-Labored Respirations, Accessory Resp Muscle Use (negative) and Stridor (negative)
GI: Soft, Non Distended, Non Tender and Normal Bowel Sounds
Neurology: AO x 3 and Tremors (negative)
Skin: Warm, Dry, Cyanosis (negative) and Jaundice (negative)
Labs/Micro/Reports
Lab Data
08/29/24 04:10
08/31/24 05:40
--- NOTE | 2024-09-01 12:22 | CM ---
Addendum entered by Leeann Gupta 09/01/24 15:44:
[facility] is reviewing referral and may be able to accept tomorrow am. Admissions Liaison to call patient daughter who is anticipating call to discuss options for hospice and admission. CM will text to update physician and continue to follow for
discharge planning needs.
Addendum entered by Leeann Gupta 09/01/24 12:32:
referrals sent awaiting responses.
Original Note:
Patient seen at bedside. patient still on 6 liters O2. Physician spoke with patient daughter and they agreed to do a hospice consult and referrals to SNF options for placement as patient is unable to remain alone at home and family is not able to be
with patient 02/03. Family has had experience with [facility] and [facility]. Patient daughter would appreciate referral to [facility], [facility] and [facility]. CM will send referrals. Patient daughter thinks that patient grandfather/father was a Perez. CM
will continue to follow for discharge planning needs.
Plan; plan changed to SNF with hospice; pending referrals
[2024-09-01 12:23] LABS: Glucose - Point of Care 168 mg/dl (70-99)
--- NOTE | 2024-09-01 12:24 | W.PN.HOSP.TC ---
Today's Communication/Plan
-
Wean oxygen as able
Hospice consult
Assessment / Plan
Assessment / Plan
Gen-AAOx3, NAD
HEENT-NC, AT, anicteric, clear oral mm
Neck-supple
CV-reg, no M, +S1/S2
Lungs-bilateral expiratory wheezing
Abd-soft, NT, ND
Ext-no edema
Musculoskeletal-no cyanosis, clubbing
Skin-warm and dry
Neuro-grossly non-focal
Psych-calm, cooperative
Acute on chronic hypoxic/hypercapnic respiratory failure -due to COVID-19 pneumonia, superimposed bacterial pneumonia, lung mass, COPD exacerbation.
Oxygenation slowly improving, now on 6 L nasal cannula. Baseline uses 3 L of oxygen at home continuously for COPD.
Last chest x-ray from 08/25 showed slight improvement in airspace opacity within the right upper lung, slight interval increase in parenchymal opacity in the right lower lung and medial left lower lung.
Add chest vest therapy to help mobilize secretions. Discussed with patient.
COVID-19 pneumonia -symptoms started August 19. Now off isolation.
� Completed remdesivir
� NIV as needed, can place on NIV for assistance although very anxious
Presumed superimposed bacterial pneumonia, community-acquired -completed 7 days of antibiotics. Sputum culture shows over contamination of oropharyngeal elda.
Sepsis � Secondary to pneumonia, COVID-19 infection. Blood cultures negative. Sepsis resolved.
Acute COPD exacerbation -due to COVID-19 pneumonia, bacterial pneumonia. Continue inhalers, steroids. Currently on prednisone 50 mg daily. Taper down steroids slowly.
Mass in the right upper lobe, mass in the right apex -concerning for primary lung cancer.
Right lower lobe consolidation, possible central mass
� Unfortunately high risk for bronchoscopy at this time
� May need follow-up once acute event resolves depending upon GOC.
Hyperkalemia - resolved.
Hyponatremia -134.
Elevated troponin
� Most likely acute nonischemic myocardial injury secondary to sepsis, respiratory failure
� No chest pain
� Echo with normal EF, dilated RV�I suspect secondary to chronic respiratory issues; PE negative
DM2 with hyperglycemia -hyperglycemia worsened by steroid administration. Glucose 142 this morning.
� Hold metformin
� Sliding scale
� Hemoglobin A1c 6.4
Constipation -MiraLAX daily instead of as needed ordered, Senokot-S twice daily, give a dose of oral Dulcolax.
DVT prophylaxis
� Lovenox
DNR
Dispo -PT is recommending SNF when medically stable for discharge but patient prefers to go home.
I had a long discussion with patient as well as daughter on the phone regarding his overall poor prognosis. I do recommend hospice given his advanced COPD and ongoing oxygen dependency. High risk for further deterioration and re-admissions in the
future.
Daughter open to hospice discussions. She has experience with hospice, as her mother was on hospice at the end of her life (dementia diagnosis).
Hospice consult placed.
Case management aware.
In addition, patient lives with daughter and son-in-law. 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 Recommend that patient needs supervision during the day as well as night. Ideally needs for
some form of long-term care otherwise he will need home care set up 24 hours a day to assist. Discussed with family. Discussed with case management.
Anticipated Discharge: 24 - 48 hours
Subjective/Interval History
-
Date of Service: September 01, 2024
Patient seen/examined. Still with DE LA CRUZ, conversational SOB.
Objective Data
-
Labs:
Laboratory Results
09/01/24
12:10
Plt Count Pending
Vital Signs:
Vital Signs
Temp Pulse Resp BP Pulse Ox
97.5 F 100 27 92/51 95
09/01/24 07:30 09/01/24 10:00 09/01/24 10:00 09/01/24 10:00 09/01/24 08:00
I&O
08/31/24 09/01/24 09/02/24
06:59 06:59 06:59
Intake Total 480 / 480 810 / 810 240 / 240
Output Total 1500 / 1500 675 / 675 300 / 300
Balance -1020 / -1020 135 / 135 -60 / -60
Review of Systems
-
History Source: Patient
All other systems: Reviewed and negative
[2024-09-01 13:27] LABS: Platelet Count 178 10^3/uL (130-400)
[2024-09-01] MEDS: NOVOLOG FLEXPEN-MODERATE RESISTANCE 1 UNITS SC (13:30)
[2024-09-01] MEDS: MORPHINE SULFATE 2 MG IV ×2 (15:13→21:19)
[2024-09-01 16:40] LABS: Glucose - Point of Care 338 mg/dl (70-99)
--- NOTE | 2024-09-01 16:51 | PTCARENOTE ---
OOB all day. He requested 1 dose Morphine for shortness of breath- given with good relief. Weaned to 4L NC today maintaining sao2 93%-95%. Pleasant, discussed hospice and outcomes- emotional support provided. [facility] not have [facility]
daughter visited today- she is looking into snf. Very supportive family.
[2024-09-01] MEDS: NOVOLOG FLEXPEN-MODERATE RESISTANCE 7 UNITS SC (17:01)
[2024-09-01] MEDS: LOVENOX 40 MG SC (20:23)
[2024-09-01 21:01] LABS: Glucose - Point of Care 143 mg/dl (70-99)
[2024-09-01] MEDS: MELATONIN 5 MG PO (21:19)
--- NOTE | 2024-09-01 21:20 | PTCARENOTE ---
Patient transferred to [facility]- belongings sent with patient.
--- NOTE | 2024-09-01 22:25 | PTCARENOTE ---
Patient transferred from IMU via w/c. Patient AAOx3 and able to make needs known. Patient oriented to unit. Call [facility] within reach. Plan of care ongoing.
[2024-09-02] MEDS: XOPENEX 0.63 MG INHALANT SOLUTION INH (04:01)
[2024-09-02 07:45] VITALS: BP 115/64
--- NOTE | 2024-09-02 07:51 | W.PN.HOSP.TC ---
Today's Communication/Plan
-
Discharge
Assessment / Plan
Assessment / Plan
Gen-AAOx3, NAD
HEENT-NC, AT, anicteric, clear oral mm
Neck-supple
CV-reg, no M, +S1/S2
Lungs-bilateral expiratory wheezing
Abd-soft, NT, ND
Ext-no edema
Musculoskeletal-no cyanosis, clubbing
Skin-warm and dry
Neuro-grossly non-focal
Psych-calm, cooperative
Acute on chronic hypoxic/hypercapnic respiratory failure -due to COVID-19 pneumonia, superimposed bacterial pneumonia, lung mass, COPD exacerbation.
Oxygenation slowly improving, now on 4 L nasal cannula. Baseline uses 3 L of oxygen at home continuously for COPD.
Last chest x-ray from 08/25 showed slight improvement in airspace opacity within the right upper lung, slight interval increase in parenchymal opacity in the right lower lung and medial left lower lung.
Add chest vest therapy to help mobilize secretions. Discussed with patient.
Patient feels that as needed morphine helps calm his anxiety and breathing. Will continue as needed morphine on discharge.
Low-dose daily azithromycin started by pulmonary for anti-inflammatory effects.
COVID-19 pneumonia -symptoms started August 19. Now off isolation.
� Completed remdesivir
� NIV as needed, can place on NIV for assistance although very anxious
Presumed superimposed bacterial pneumonia, community-acquired -completed 7 days of antibiotics. Sputum culture shows over contamination of oropharyngeal elda.
Sepsis � Secondary to pneumonia, COVID-19 infection. Blood cultures negative. Sepsis resolved.
Acute COPD exacerbation -due to COVID-19 pneumonia, bacterial pneumonia. Continue inhalers, steroids. Currently on prednisone 50 mg daily. Taper down steroids slowly.
Mass in the right upper lobe, mass in the right apex -concerning for primary lung cancer.
Right lower lobe consolidation, possible central mass
� Unfortunately high risk for bronchoscopy at this time
� May need follow-up once acute event resolves depending upon GOC.
Hyperkalemia - resolved.
Hyponatremia -134.
Elevated troponin
� Most likely acute nonischemic myocardial injury secondary to sepsis, respiratory failure
� No chest pain
� Echo with normal EF, dilated RV�I suspect secondary to chronic respiratory issues; PE negative
DM2 with hyperglycemia -hyperglycemia worsened by steroid administration. Glucose 142 this morning.
� Hold metformin, resume on discharge.
� Sliding scale
� Hemoglobin A1c 6.4
Constipation -MiraLAX daily instead of as needed ordered, Senokot-S twice daily, give a dose of oral Dulcolax.
DVT prophylaxis
� Lovenox
DNR
Dispo -medically stable for discharge to [facility] today with transition to hospice. Spoke with daughter yesterday and she is agreeable.
35 minutes spent in discharge process.
Anticipated Discharge: Today
Subjective/Interval History
-
Date of Service: September 02, 2024
Patient seen and examined. Overall improving, got some sleep last night. No complaints currently.
Objective Data
-
Vital Signs:
Vital Signs
Temp Pulse Resp BP Pulse Ox
97.5 F 98 17 115/64 92
09/02/24 07:45 09/02/24 07:45 09/02/24 07:45 09/02/24 07:45 09/02/24 07:45
I&O
09/01/24 09/02/24 09/03/24
06:59 06:59 06:59
Intake Total 810 / 810 720 / 720 240 / 240
Output Total 675 / 675 700 / 700 200 / 200
Balance 135 / 135 20 / 20 40 / 40
Review of Systems
-
History Source: Patient
All other systems: Reviewed and negative
--- NOTE | 2024-09-02 08:05 | W.DS.TRANS ---
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
-
Discharge Instructions:
Discharge Diagnosis/Procedures COVID-19 pneumonia, community-acquired pneumonia
, sepsis, COPD exacerbation, lung mass
Diet Diabetic, Carb Controlled
Activity As tolerated,With assistance
Driving Restrictions No driving
Bathing Restrictions None
Other Services VN
Instructions:
Stand-Alone Forms:
Changes to Home Medications: No
Discharge Medications:
DC Medications w/original date entered in [facility]
aspirin 81 mg tablet,delayed release 81 mg PO DAILY Blood Clot Prevention/Tx 08/22/24
cholecalciferol (vitamin D3) 25 mcg (1,000 unit) tablet (Vitamin D3) 25 mcg PO DAILY Supplement 08/22/24
docusate sodium 100 mg capsule 100 mg PO DAILY Constipation 08/22/24
metformin 500 mg tablet 500 mg PO BID Diabetes 08/22/24
mometasone 200 mcg/actuation HFA aerosol inhaler (Asmanex HFA) 1 puff inhalation R BID Lung/Breathing Issues 08/22/24
tiotropium 2.5 mcg-olodaterol 2.5 mcg/actuation mist for inhalation (Stiolto Respimat) 2 puff inhalation R DAILY Lung/Breathing Issues 08/22/24
azithromycin 250 mg tablet 250 mg PO DAILY #0 tabs 09/02/24
benzonatate 100 mg capsule 100 mg PO TIDPRN PRN cough #0 caps 09/02/24
guaifenesin 600 mg tablet, extended release 12 hr 1,200 mg (2 x 600 mg) PO Q12 #0 tabs 09/02/24
levalbuterol HCl 0.63 mg/3 mL solution for nebulization 0.63 mg (3 mL) inhalation R Q6HPRN PRN SOB #0 mL 09/02/24
melatonin 5 mg tablet 5 mg PO HS #0 tabs 09/02/24
morphine 10 mg/5 mL oral solution 5 mg (2.5 mL) PO Q4H PRN dyspnea #100 mL 09/02/24
polyethylene glycol 3350 17 gram oral powder packet 17 g PO DAILY #0 ea 09/02/24
prednisone 10 mg tablet 10 mg PO DIRECTED #30 tabs 09/02/24
sodium chloride 0.65 % nasal spray aerosol (Saline Nasal) 2 spray intranasal QIDPRN PRN dry nose #0 mL 09/02/24
Home Medication Changes
Pending Results: No
--- NOTE | 2024-09-02 08:14 | CM ---
Patient for transfer to [facility] to go [facility]. Please call report to [phone] and fax [phone]. Please fax clinical information to [phone]. Patient daughter aware and ambulance scheduled for 11am. Patient needs to be at [facility] by
1pm. No auth needed due to sign on to hospice. CM will fax IMM to patient daughter at [email or web address]. CM will continue to follow for discharge planning needs.
Plan; transfer to SNF today.
[2024-09-02] MEDS: SENOKOT-S 1 TABLET PO (08:32)
[2024-09-02] MEDS: ASPIR LOW (ENTERIC COATED) 81 MG PO (08:32)
[2024-09-02] MEDS: MIRALAX 17 GRAMS PO (08:32)
[2024-09-02] MEDS: ZITHROMAX 250 MG PO (08:32)
[2024-09-02] MEDS: MUCINEX 1200 MG PO (08:32)
[2024-09-02] MEDS: DELTASONE 50 MG PO (08:32)
[2024-09-02] MEDS: NOVOLOG FLEXPEN-MODERATE RESISTANCE SC (09:04)
[2024-09-02 09:08] LABS: Glucose - Point of Care 114 mg/dl (70-99)
[2024-09-02] MEDS: MORPHINE SULFATE 2 MG IV (10:10)
== END 2024-09-02 11:40 | disposition hospice, inpatient (51) | DRG 871 ==
LOC: 3 WEST ACU 13:52
PROVIDERS: Internal Medicine; Nurse Practitioner Family; Physician Assistant Medical; Registered Nurse; ADMITTING PHYSICIAN Hospitalist; ATTENDING PHYSICIAN Hospitalist; CONSULT PHYSICIAN Internal Medicine Critical Care Medicine; EMERGENCY PHYSICIAN Emergency Medicine
PROC: 5A09357 Assistance with Respiratory Ventilation, Less than 24 Consecutive Hours, Continuous Positive Airway Pressure (ICD-10-PCS; 2024-08-22)
PROC: XW033E5 Introduction of Remdesivir Anti-infective into Peripheral Vein, Percutaneous Approach, New Technology Group 5 (ICD-10-PCS; 2024-08-22)
DX: A41.89 Other specified sepsis (principal); J12.82 Pneumonia due to coronavirus disease 2019; U07.1 COVID-19; J96.21 Acute and chronic respiratory failure with hypoxia; J96.22 Acute and chronic respiratory failure with hypercapnia; J15.9 Unspecified bacterial pneumonia; J44.1 Chronic obstructive pulmonary disease with (acute) exacerbation; J44.0 Chronic obstructive pulmonary disease with (acute) lower respiratory infection; E87.1 Hypo-osmolality and hyponatremia; I5A Non-ischemic myocardial injury (non-traumatic); E87.4 Mixed disorder of acid-base balance; R91.8 Other nonspecific abnormal finding of lung field; E87.5 Hyperkalemia; J43.9 Emphysema, unspecified; E11.65 Type 2 diabetes mellitus with hyperglycemia; K59.00 Constipation, unspecified; Z66 Do not resuscitate; I51.7 Cardiomegaly; Z79.84 Long term (current) use of oral hypoglycemic drugs; Z87.891 Personal history of nicotine dependence; Z79.82 Long term (current) use of aspirin
CPT/HCPCS: 71045; 71275; 76604; 80048; 80053; 82805; 82962; 83036; 83605; 83735; 84100; 84145; 84484; 85025; 85027; 85049; 85730; 87040; 87205; 87502; 87641; 87811; 93005; 93306; 94640; 94660; 94669; 96365; 96366; 96375; 97110; 97116; 97163; 97167; 97530; 99291; J0248; Q9967